=== PATIENT | male | born 1960 | race Caucasian/White ===

== ENCOUNTER → 2017-03-09 | Outpatient (CLI) | payer BC ==
[2017-03-09 14:54] LABS: BASOPHILS % (AUTO) 0.5 %; EOSINOPHILS # (AUTO) 0.1 10^3/uL (0.0-0.7); EOSINOPHILS % (AUTO) 1.8 %; HCT - HEMATOCRIT 46.4 % (42.0-52.0); HGB - HEMOGLOBIN 15.5 g/dL (14.0-18.0); LYMPHOCYTES # (AUTO) 1.6 10^3/uL (1.5-3.5); LYMPHOCYTES % (AUTO) 21.7 %; MEAN CORPUSCULAR HEMOGLOBIN 30.6 pg (27.0-31.0); MEAN CORPUSCULAR HGB CONC 33.4 g/dL (32.0-36.0); MEAN CORPUSCULAR VOLUME 91.8 fL (80.0-94.0); MEAN PLATELET VOLUME 9.6 fL (7.4-11.4); MONOCYTES # (AUTO) 0.8 10^3/uL (0.0-1.0); MONOCYTES % (AUTO) 10.3 %; NEUTROPHILS # (AUTO) 4.9 10^3/uL (1.5-6.6); NEUTROPHILS % (AUTO) 65.7 %; NUCLEATED RED BLOOD CELLS AUTO 0.1 /100WBC; RED BLOOD COUNT 5.05 10^6/uL (4.70-6.10); RED CELL DISTRIBUTION WIDTH 13.9 % (12.0-15.0); UNCORRECTED WHITE BLOOD COUNT 7.5 x10^3/uL; WHITE BLOOD COUNT 7.5 x10^3/uL (4.8-10.8)
[2017-03-09 15:04] LABS: ALBUMIN/GLOBULIN RATIO 1.2 (1.0-2.2); BILIRUBIN,TOTAL 0.6 mg/dL (0.2-1.0); BUN - BLOOD UREA NITROGEN 26 mg/dL (6-20); CALCIUM 9.1 mg/dL (8.5-10.3); CARBON DIOXIDE - CO2 30 mmol/L (21-32); CHLORIDE 96 mmol/L (101-111); CHOL/HDL RATIO 4.7 (<5.0); CHOLESTEROL 225 mg/dL; GFR - MDRD 77 (>89); GLUCOSE 97 mg/dL (70-100); HDL CHOLESTEROL 48 mg/dL; LDL/HDL RATIO 3.2 (<3.6); POTASSIUM 3.9 mmol/L (3.5-5.0); SODIUM 136 mmol/L (135-145); TOTAL PROTEIN 7.4 g/dL (6.7-8.2); TRIGLYCERIDES 110 mg/dL; VLDL CHOLESTEROL 22 mg/dL
[2017-03-09 15:15] LABS: PSA TOTAL 3.16 ng/mL (0.000-2.000)
[2017-03-12 13:42] LABS: PSA FREE 0.28 ng/mL (0.16-2.81)
== END ==
LOC: LAB.R 08:00
PROVIDERS: ATTEND Nurse Practitioner Primary Care
DX: N40.0 Benign prostatic hyperplasia without lower urinary tract symptoms (principal); E55.9 Vitamin D deficiency, unspecified; I10 Essential (primary) hypertension; R61 Generalized hyperhidrosis; Z13.6 Encounter for screening for cardiovascular disorders
CPT/HCPCS: 80053; 80061; 82306; 84153; 84154; 84443; 85025

== ENCOUNTER 2017-04-18 13:52 | Outpatient (CLI) | payer BC ==
[2017-04-18] MEDS ORDERED: ALBUTEROL NEB 2.5 MG/3 ML INH ONE (14:00)
== END 2017-04-18 13:53 | disposition home or self-care (01) ==
LOC: RT 13:52
PROVIDERS: ATTEND Nurse Practitioner Primary Care
DX: J45.909 Unspecified asthma, uncomplicated (principal)
CPT/HCPCS: 94060; 94664

== ENCOUNTER 2017-05-03 15:47 | Outpatient (CLI) | payer BC ==
--- NOTE | 2017-05-04 10:46 | XRAY Report ---
DATE OF SERVICE: 05/03/2017 TWO VIEW CHEST: 05/03/2017 CLINICAL INDICATION: Restrictive lung disease. FINDINGS: Frontal and lateral views of the chest demonstrate a normal cardiac silhouette. There is elevation of the right hemidiaphragm. Spinal stimulator is noted in the mid thoracic spine. No focal consolidation, effusion, or pneumothorax is present. IMPRESSION: ELEVATION OF THE RIGHT HEMIDIAPHRAGM. NO EVIDENCE OF ACUTE CARDIOPULMONARY DISEASE. TD: 05/04/2017 11:45
== END 2017-05-03 15:48 | disposition home or self-care (01) ==
LOC: DI 15:47
PROVIDERS: ATTEND Orthopaedic Surgery
DX: J98.4 Other disorders of lung (principal)
CPT/HCPCS: 71046

== ENCOUNTER 2017-05-03 15:51 | Outpatient (CLI) | payer BC ==
--- NOTE | 2017-05-04 10:52 | XRAY Report ---
DATE OF SERVICE: 05/03/2017 LUMBAR SPINE WITH FLEXION AND EXTENSION: 05/03/2017 CLINICAL INDICATION: Fusion. FINDINGS: AP, lateral neutral, lateral flexion, lateral extension, coned down views of the lumbar spine were obtained. No previous exam is available for comparison. There has been previous posterior sheri and pedicle screw fusion of L4-L5. There is anterolisthesis of L4 on L5 by 1 cm, which is stable across flexion and extension. There is no evidence of fracture or subluxation. Mild degenerative changes are seen at the other disk levels. IMPRESSION: POSTERIOR SHERI AND PEDICLE SCREW FUSION OF L4-L5, WITH 1 CM ANTEROLISTHESIS OF L4 ON L5, STABLE ACROSS FLEXION AND EXTENSION. TD: 05/04/2017 11:52
== END 2017-05-03 15:52 | disposition home or self-care (01) ==
LOC: DI 15:51
PROVIDERS: ATTEND Physical Medicine & Rehabilitation
DX: Z98.1 Arthrodesis status (principal); J98.4 Other disorders of lung; M43.16 Spondylolisthesis, lumbar region
CPT/HCPCS: 71046; 72110

== ENCOUNTER 2017-05-08 09:54 | Outpatient (CLI) | payer BC | END 2017-05-08 09:55 | disposition home or self-care (01) | LOC: SC 09:54 | PROVIDERS: ATTEND Internal Medicine Pulmonary Disease | DX: G47.10 Hypersomnia, unspecified (principal); G47.8 Other sleep disorders; R06.83 Snoring | CPT/HCPCS: 99203; 99212 ==

== ENCOUNTER 2017-06-19 21:37 | Outpatient (CLI) | payer BC | END 2017-06-19 21:38 | disposition home or self-care (01) | LOC: SC 21:37 | PROVIDERS: ATTEND Internal Medicine Pulmonary Disease | DX: G47.33 Obstructive sleep apnea (adult) (pediatric) (principal) | CPT/HCPCS: 95810 ==

== ENCOUNTER 2017-06-25 11:02 | Outpatient (CLI) | payer BC | END 2017-06-25 11:03 | disposition home or self-care (01) | LOC: LAB 11:02 | PROVIDERS: ATTEND Orthopaedic Surgery | DX: J98.4 Other disorders of lung (principal) | CPT/HCPCS: 36415; 85018 ==

== ENCOUNTER 2017-06-27 09:20 | Outpatient (CLI) | payer BC | END 2017-06-27 09:21 | disposition home or self-care (01) | LOC: RT 09:20 | PROVIDERS: ATTEND Allergy & Immunology | DX: J98.4 Other disorders of lung (principal) | CPT/HCPCS: 94010; 94729 ==

== ENCOUNTER 2017-07-03 08:32 | Outpatient (CLI) | payer BC | END 2017-07-03 08:33 | disposition home or self-care (01) | LOC: SC 08:32 | PROVIDERS: ATTEND Nurse Practitioner Family | DX: G47.33 Obstructive sleep apnea (adult) (pediatric) (principal) | CPT/HCPCS: 99212; 99214 ==

== ENCOUNTER 2017-07-04 10:53 | Outpatient (CLI) | payer BC ==
--- NOTE | 2017-07-04 14:44 | CT Report ---
HIGH-RES CHEST CT WITHOUT CONTRAST: 07/04/2017 COMPARISON: No comparison. INDICATION: Restrictive lung disease. TECHNIQUE: Noncontrast axial imaging of the chest was performed with coronal and sagittal reformats. Inspiration views and high resolution views were performed as well. FINDINGS: There is minimal right basilar bronchiectasis. There is elevation of the right diaphragm. No pulmonary nodules or masses. No other interstitial findings are noted. No hilar or mediastinal adenopathy. There is a 1.9 cm right renal cortical cyst. There is bilateral renal pelviectasis of uncertain etiology. Spinal stimulator is noted. No bone lesions. IMPRESSION: THERE IS MINIMAL RIGHT BASILAR BRONCHIECTASIS. NO OTHER INTERSTITIAL FINDINGS ARE DEMONSTRATED. THERE IS ELEVATION OF THE RIGHT DIAPHRAGM. THIS MAY BE POSTSURGICAL OR DUE TO PHRENIC NERVE PALSY. CORRELATE CLINICALLY. CT DOSE REDUCTION STATEMENT In accordance with CT protocol optimization, one or more of the following dose reduction techniques were utilized for this exam: automated exposure control, adjustment of mA and/or KV based on patient size, or use of iterative reconstructive technique. TD: 07/04/2017 14:43 MTDD
== END 2017-07-04 10:54 | disposition home or self-care (01) ==
LOC: DI 10:53
PROVIDERS: ATTEND Allergy & Immunology
DX: J47.9 Bronchiectasis, uncomplicated (principal); J98.6 Disorders of diaphragm
CPT/HCPCS: 71250

== ENCOUNTER 2017-10-15 09:44 | Outpatient (CLI) | payer BC | END 2017-10-15 09:45 | disposition home or self-care (01) | LOC: SC 09:44 | PROVIDERS: ATTEND Nurse Practitioner Family | DX: G47.33 Obstructive sleep apnea (adult) (pediatric) (principal) | CPT/HCPCS: 99212; 99214 ==

== ENCOUNTER 2017-11-12 11:14 | Outpatient (CLI) | payer BC | END 2017-11-12 11:15 | disposition home or self-care (01) | LOC: SC 11:14 | PROVIDERS: ATTEND Nurse Practitioner Family | DX: G47.33 Obstructive sleep apnea (adult) (pediatric) (principal) | CPT/HCPCS: 99212; 99214 ==

== ENCOUNTER 2018-01-07 10:35 | Outpatient (CLI) | payer BC | END 2018-01-07 10:36 | disposition home or self-care (01) | LOC: LAB.R 10:35 | PROVIDERS: ATTEND Internal Medicine | DX: M70.22 Olecranon bursitis, left elbow (principal) | CPT/HCPCS: 87070; 87181; 87205 ==

== ENCOUNTER 2018-01-17 13:39 | Outpatient (CLI) | payer BC ==
[2018-01-17 14:06] LABS: BASOPHILS # (AUTO) 0.1 10^3/uL (0.0-0.1); BASOPHILS % (AUTO) 0.6 %; EOSINOPHILS # (AUTO) 0.1 10^3/uL (0.0-0.7); EOSINOPHILS % (AUTO) 0.7 %; HGB - HEMOGLOBIN 14.9 g/dL (14.0-18.0); LYMPHOCYTES # (AUTO) 1.7 10^3/uL (1.5-3.5); LYMPHOCYTES % (AUTO) 16.5 %; MEAN CORPUSCULAR HEMOGLOBIN 31.2 pg (27.0-31.0); MEAN CORPUSCULAR HGB CONC 34.4 g/dL (32.0-36.0); MEAN CORPUSCULAR VOLUME 90.8 fL (80.0-94.0); MEAN PLATELET VOLUME 8.1 fL (7.4-11.4); MONOCYTES # (AUTO) 0.6 10^3/uL (0.0-1.0); MONOCYTES % (AUTO) 5.9 %; NEUTROPHILS # (AUTO) 7.9 10^3/uL (1.5-6.6); NEUTROPHILS % (AUTO) 76.3 %; PLT - PLATELET COUNT 281 10^3/uL (130-450); RED BLOOD COUNT 4.76 10^6/uL (4.70-6.10); RED CELL DISTRIBUTION WIDTH 13.3 % (12.0-15.0); WHITE BLOOD COUNT 10.4 x10^3/uL (4.8-10.8)
[2018-01-17 14:16] LABS: CALCIUM 9.1 mg/dL (8.5-10.3)
== END 2018-01-17 13:40 | disposition home or self-care (01) ==
LOC: LAB 13:39
PROVIDERS: ATTEND Orthopaedic Surgery Sports Medicine
DX: Z01.812 Encounter for preprocedural laboratory examination (principal); M70.22 Olecranon bursitis, left elbow
CPT/HCPCS: 36415; 80048; 85025; 93005

== ENCOUNTER 2018-01-18 06:13 | Day surgery (SDC) | payer BC ==
[2018-01-18] MEDS ORDERED: CLINDAMYCIN 600 MG/50 ML 50 ML IV ONE (06:29)
[2018-01-18] MEDS ORDERED: LACTATED RINGERS 1,000 ML IV ONE ×2 (06:31→08:45)
[2018-01-18] MEDS ORDERED: BUPIVACAINE 0.25% PF 30 ML VIAL ONE (06:53)
--- NOTE | 2018-01-18 07:17 | ANESTHESIA ---
Pre-Anesthesia VS, & Labs - Diagnosis L Olecrenon bursitis - Procedure I&D left olecranon Vital Signs: Temp Pulse Resp BP Pulse Ox 36.3 C L 59 L 18 153/109 H 92 01/18/18 06:42 01/18/18 06:42 01/18/18 06:42 01/18/18 06:42 01/18/18 06:42 Height 6 ft Weight (kg) 131.3 kg - NPO >8 hours - Lab Results Lab results reviewed: Yes Home Medications and Allergies Home Medications: Ambulatory Orders Medication Instructions Recorded Confirmed Acetaminophen/Diphenhydramine 2 each PO DAILY PM 01/11/18 01/11/18 [Tylenol Pm Ex-Strength Caplet] Albuterol Sulfate [Proair Hfa 1 - 2 puffs INH Q4H PRN 01/11/18 01/11/18 Inhaler] Amitriptyline HCl 25 - 50 mg PO DAILY PM 01/11/18 01/11/18 Ascorbic Acid [Vitamin C] 500 mg PO DAILY 01/11/18 01/11/18 Azelastine HCl [Astepro] 4 spray NS DAILY 01/11/18 01/11/18 Budesonide/Formoterol Fumarate 2 puffs IH BID 01/11/18 01/11/18 [Symbicort 160-4.5 Mcg Inhaler] Cholecalciferol [Vitamin D3] 5,000 unit PO DAILY 01/11/18 01/11/18 Codeine Phosphate/Guaifenesin 5 ml PO DAILY PM PRN 01/11/18 01/11/18 [Guaifen-Codeine 100-10 mg/5 ml] Diclofenac Sodium [Diclo Gel] 1 applic TP TID 01/11/18 01/11/18 Duloxetine HCl [Cymbalta] 60 mg PO DAILY 01/11/18 01/11/18 Lisinopril 20 mg PO BID 01/11/18 01/11/18 Loratadine [Claritin] 10 mg PO DAILY 01/11/18 01/11/18 Metaxalone 800 mg PO TID 01/11/18 01/11/18 Naproxen Sodium 220 mg PO BID 01/11/18 01/11/18 Oxycodone HCl 10 mg PO Q4HR PRN 01/11/18 01/11/18 Polyethylene Glycol 3350 [Miralax] 17 gm PO DAILY 01/11/18 01/11/18 Pregabalin [Lyrica] 150 mg PO BID 01/11/18 01/11/18 Tamsulosin [Flomax] 0.4 mg PO DAILY PM 01/11/18 01/11/18 Triamcinolone Acetonide [Nasacort] 2 spray NS DAILY 01/11/18 01/11/18 Vardenafil HCl [Levitra] 20 mg PO ONCE PRN 01/11/18 01/11/18 Zolpidem Tartrate [Ambien] 10 mg PO DAILY PM 01/11/18 01/11/18 clonazePAM [Clonazepam] 1 mg PO DAILY PM 01/11/18 01/11/18 Metaxalone 800 mg PO TID 01/17/18 01/17/18 Mometasone Furoate [Nasonex] 2 sprays NS BID 01/17/18 01/17/18 Acetaminophen/Diphenhydramine [Tylenol Pm Ex-Strength Caplet] 2 each PO DAILY PM 01/11/18 Albuterol Sulfate [Proair Hfa Inhaler] 1 - 2 puffs INH Q4H PRN 01/11/18 Amitriptyline HCl 25 - 50 mg PO DAILY PM 01/11/18 Ascorbic Acid [Vitamin C] 500 mg PO DAILY 01/11/18 Azelastine HCl [Astepro] 4 spray NS DAILY 01/11/18 Budesonide/Formoterol Fumarate [Symbicort 160-4.5 Mcg Inhaler] 2 puffs IH BID 01/11/18 Cholecalciferol [Vitamin D3] 5,000 unit PO DAILY 01/11/18 Codeine Phosphate/Guaifenesin [Guaifen-Codeine 100-10 mg/5 ml] 5 ml PO DAILY PM PRN 01/11/18 Diclofenac Sodium [Diclo Gel] 1 applic TP TID 01/11/18 Duloxetine HCl [Cymbalta] 60 mg PO DAILY 01/11/18 Lisinopril 20 mg PO BID 01/11/18 Loratadine [Claritin] 10 mg PO DAILY 01/11/18 Metaxalone 800 mg PO TID 01/11/18 Naproxen Sodium 220 mg PO BID 01/11/18 Oxycodone HCl 10 mg PO Q4HR PRN 01/11/18 Polyethylene Glycol 3350 [Miralax] 17 gm PO DAILY 01/11/18 Pregabalin [Lyrica] 150 mg PO BID 01/11/18 Tamsulosin [Flomax] 0.4 mg PO DAILY PM 01/11/18 Triamcinolone Acetonide [Nasacort] 2 spray NS DAILY 01/11/18 Vardenafil HCl [Levitra] 20 mg PO ONCE PRN 01/11/18 Zolpidem Tartrate [Ambien] 10 mg PO DAILY PM 01/11/18 clonazePAM [Clonazepam] 1 mg PO DAILY PM 01/11/18 Metaxalone 800 mg PO TID 01/17/18 Mometasone Furoate [Nasonex] 2 sprays NS BID 01/17/18 Allergies/Adverse Reactions: Allergies Allergy/AdvReac Type Severity Reaction Status Date / Time cefaclor [From [facility]] Allergy Unknown Verified 01/17/18 15:55 Anes History & Medical History - Anesthetic History Anesthesia Complications: reports: No previous complications Family history of Anesthesia Complications: Denies Family history of Malignant Hyperthermia: Denies - Medical History Cardiovascular: reports: Hypertension Pulmonary: reports: Asthma, Shortness of breath, Sleep apnea, CPAP use Gastrointestinal: reports: None Urinary: reports: None Musculoskeletal: reports: Chronic back pain Endocrine/Autoimmune: reports: None Skin: reports: None - Surgical History General: Other Orthopedic: Spine surgery, Other Exam General: Alert, Oriented x3, Cooperative, No acute distress Mouth Openin Fingerbreadth Neck Mobility: Normal Mallampati classification: II Thyromental Distance: greater than 6 cm Respiratory: Lungs clear Cardiovascular: Regular rate, Normal S1, Normal S2, No murmurs Mental/Cognitive Status: Alert/Oriented X3 Cognitive Status: Within normal limits Plan Anesthesia Type: General Regional Block: Per Surgeon's request for Post Op pain control Consent for Procedure(s) Verified and Reviewed: Yes Code Status: Attempt Resuscitation ASA classification: 2-Mild systemic disease Is this case an emergency?: No
[2018-01-18] MEDS ORDERED: ONDANSETRON 4 MG/2 ML VIAL IVP ONE (08:32)
[2018-01-18] MEDS ORDERED: DEXAMETHASONE 4 MG/ML VIAL IVP ONE (08:32)
[2018-01-18] MEDS ORDERED: PROPOFOL 200 MG/20 ML VIAL IVP ONE (08:32)
[2018-01-18] MEDS ORDERED: ePHEDrine 50 MG/ML VIAL IVP ONE (08:32)
[2018-01-18] MEDS ORDERED: KETOROLAC 30 MG/ML VIAL IVP ONE (08:32)
[2018-01-18] MEDS ORDERED: PHENYLEPHRINE 50 MG/5 ML VIAL IV ONE (08:32)
[2018-01-18] MEDS ORDERED: MIDAZOLAM 2 MG/2 ML VIAL IVP ONE (08:32)
[2018-01-18] MEDS ORDERED: fentaNYL 100 MCG/2 ML VIAL IVP ONE (08:32)
[2018-01-18] MEDS ORDERED: LIDOCAINE-MPF 2% 5 ML VIAL IM ONE (08:32)
[2018-01-18] MEDS ORDERED: BUPIVACAINE 0.25% PF 30 ML VIAL SUBQ ONE (09:02)
[2018-01-18] MEDS: fentaNYL 100 MCG/2 ML VIAL ONE ×2 (09:30→09:36)
[2018-01-18] MEDS ORDERED: ONDANSETRON 4 MG/2 ML VIAL IVP PRN (09:36)
[2018-01-18] MEDS ORDERED: oxyCODONE 5 MG TABLET PO PRN (09:36)
[2018-01-18] MEDS ORDERED: oxyCOD/ACETAMIN 5 MG/325 MG TABLET PO ONE (10:02)
[2018-01-18 10:40] VITALS: BP 113/75
--- NOTE | 2018-01-18 11:18 | OPERATIVE REPORT ---
DATE OF SERVICE: 01/18/2018 Physician: Markel Anderson MD CARRIAGE SETTER: None. ANESTHESIA PROVIDER: Galdino Boucher CNA. ANESTHESIA: General anesthesia LMA, as well as 20 mL of 0.25% plain Marcaine. FLUIDS: 1 liter LR. ANTIBIOTICS: 600 clindamycin IV. PREOPERATIVE DIAGNOSES 1. Left septic olecranon bursa. 2. Left upper extremity cellulitis. POSTOPERATIVE DIAGNOSES 1. Left septic olecranon bursa. 2. Left upper extremity cellulitis. PROCEDURE PERFORMED 1. Left olecranon bursectomy. 2. Left elbow debridement and irrigation. HISTORY OF PRESENT ILLNESS/INDICATIONS: Patient is a 57-year-old gentleman who has thus far failed noninvasive treatment for an infected left elbow bursa. He is indicated for operative treatment. Please see previous clinic visit for full risks, benefits, and alternatives reviewed. These are again highlighted in the preoperative care unit with the patient and the patient's . Their questions are answered, they verbalize their wish to proceed with operative treatment; informed consent was given. PROCEDURE: On 01/18/2018 patient was identified in the Preoperative Care Unit. He identifies his left elbow as the operative site; this is signed. Patient is brought to the operating room. Antibiotics are given. He is placed supine on the operating table. Head, neck and extremity is placed in anatomic comfortable and stable position to avoid peripheral nerve stretch and compression. The patient's left upper extremity has a well-padded tourniquet placed high on the left axilla, taking care to avoid axillary structures neurovascularly. Left elbow is then shaved. Left elbow and left upper extremity are prescrubbed with Hibiclens solution and then prepped and draped in the usual sterile fashion. Surgical pause identified the left elbow as the operative site. At this point, Esmarch bandage is used to exsanguinate the limb, tourniquet is inflated to 250, and a curvilinear incision is made over the olecranon bursal region, with an attempt to make the incision out to the more lateral aspect of the olecranon tip to avoid wound compression with elbow pressure and to avoid approach of the ulnar nerve. At this point, incision is made. Spreading dissection is carried out around the bursa. Straw-colored minimally purulent fluid is noted to be in the bursa, which is cultured, and the bursa is then dissected out carefully, taking care to avoid over penetration in the cubital tunnel and to avoid iatrogenic injury to adjacent neurovascular structures. Hemostasis is achieved using bipolar cautery, given the patient's spinal implant. After the bursa is removed, the remaining tissue is then sharply debrided to healthy tissue, and, once the healthy tissue plane is identified throughout, copious irrigation using pulsatile lavage, a total of 3 liters, is used. This is intermittent with debridement as well. A curette is used to freshen all of the soft tissue edges, as well as over the periosteal region, and once all corners of the wound were explored and noted to be free of poor quality or infected or affected tissue, then repeat copious irrigation is performed. Hemostasis is achieved after the tourniquet is deflated, and then the wound is closed using interrupted PDS suture, 3-0 at the corners of the incision and then 3-0 nylon interrupted suture. Skin comes together nicely. Skin is washed, dried, local anesthetic is infused superficially. Xeroform dressing is applied to the wound, dry sterile dressing, soft roll, and then a soft splint at 90 degrees is applied from the hand to the arm. The patient is placed in a sling. The patient tolerated the procedure well. Instrument and sponge counts are correct. The patient is transferred to the recovery room in stable condition. The patient will continue his clindamycin antibiotics orally. He is already on pain medications generally and will use oxycodone. He would limit his activity of left upper extremity to less than 1 pound lifting. He would be encouraged to move hand and wrist. He would keep the elbow at 90 degrees, use the sling, and elevate it on a pillow when at rest. He would come in next week for a recheck, though sooner should problems, questions, or worsening condition should then arise. The patient's is contacted in the waiting room, and case is discussed with her. Postoperative instructions reviewed again with her, as they had been with the patient and the patient's preoperatively. She verbalizes her understanding and satisfaction of our plan and will notify us prior to followup should problems, questions, or worsening of condition arise. TD: 01/18/2018 10:07 PABLO
== END 2018-01-18 06:14 | disposition home or self-care (01) ==
LOC: SDS 06:13
PROVIDERS: ATTEND Orthopaedic Surgery Sports Medicine
PROC: 0MT40ZZ Resection of Left Elbow Bursa and Ligament, Open Approach (ICD-10-PCS; principal; 2018-01-18 07:30)
DX: M70.22 Olecranon bursitis, left elbow (principal); L03.114 Cellulitis of left upper limb; I10 Essential (primary) hypertension; G47.30 Sleep apnea, unspecified; J45.909 Unspecified asthma, uncomplicated; M54.9 Dorsalgia, unspecified; G89.29 Other chronic pain; Z96.89 Presence of other specified functional implants; Z79.899 Other long term (current) drug therapy; Z79.51 Long term (current) use of inhaled steroids
CPT/HCPCS: 24105; 87070; 87205; A9270; J7120

== ENCOUNTER 2018-02-11 11:13 | Outpatient (CLI) | payer BC | END 2018-02-11 11:14 | disposition home or self-care (01) | LOC: SC 11:13 | PROVIDERS: ATTEND Nurse Practitioner Family | DX: G47.33 Obstructive sleep apnea (adult) (pediatric) (principal); R09.02 Hypoxemia | CPT/HCPCS: 99212; 99214 ==

== ENCOUNTER 2018-03-05 09:25 | Outpatient (CLI) | payer BC ==
[2018-03-05 13:50] LABS: BASOPHILS % (AUTO) 0.4 %; EOSINOPHILS # (AUTO) 0.1 10^3/uL (0.0-0.7); EOSINOPHILS % (AUTO) 1.3 %; HGB - HEMOGLOBIN 14.7 g/dL (14.0-18.0); LYMPHOCYTES # (AUTO) 1.7 10^3/uL (1.5-3.5); LYMPHOCYTES % (AUTO) 25.2 %; MEAN CORPUSCULAR HEMOGLOBIN 30.8 pg (27.0-31.0); MEAN CORPUSCULAR HGB CONC 33.8 g/dL (32.0-36.0); MEAN CORPUSCULAR VOLUME 91.1 fL (80.0-94.0); MEAN PLATELET VOLUME 8.8 fL (7.4-11.4); MONOCYTES # (AUTO) 0.7 10^3/uL (0.0-1.0); MONOCYTES % (AUTO) 9.7 %; NEUTROPHILS # (AUTO) 4.3 10^3/uL (1.5-6.6); NEUTROPHILS % (AUTO) 63.4 %; PLT - PLATELET COUNT 200 10^3/uL (130-450); RED BLOOD COUNT 4.77 10^6/uL (4.70-6.10); RED CELL DISTRIBUTION WIDTH 14.3 % (12.0-15.0); WHITE BLOOD COUNT 6.8 x10^3/uL (4.8-10.8)
[2018-03-05 14:05] LABS: ALBUMIN/GLOBULIN RATIO 1.4 (1.0-2.2); ALKALINE PHOSPHATASE 68 IU/L (42-121); ALT ALANINE AMINOTRANSFERASE 23 IU/L (10-60); AST ASPARTATE AMINOTRANSFERASE 23 IU/L (10-42); BILIRUBIN,TOTAL 0.9 mg/dL (0.2-1.0); BUN - BLOOD UREA NITROGEN 24 mg/dL (6-20); CALCIUM 8.6 mg/dL (8.5-10.3); CARBON DIOXIDE - CO2 32 mmol/L (21-32); CHLORIDE 99 mmol/L (101-111); CHOL/HDL RATIO 4.8 (<5.0); CHOLESTEROL 228 mg/dL; CREATININE 0.9 mg/dL (0.6-1.2); GFR - MDRD 86 (>89); GLUCOSE 98 mg/dL (70-100); HB2 TOTAL 16.3 g/dL; HDL CHOLESTEROL 48 mg/dL; HEMOGLOBIN A1C 0.66 g/dL; HEMOGLOBIN A1C % 5.9 % (4.6-6.2); LDL CHOLESTEROL,CALCULATED 137 mg/dL; LDL/HDL RATIO 2.9 (<3.6); SODIUM 137 mmol/L (135-145); TOTAL PROTEIN 6.9 g/dL (6.7-8.2); VLDL CHOLESTEROL 43 mg/dL
== END 2018-03-05 09:26 | disposition home or self-care (01) ==
LOC: LAB.R 09:25
PROVIDERS: ATTEND Nurse Practitioner Primary Care
DX: Z00.00 Encounter for general adult medical examination without abnormal findings (principal); E55.9 Vitamin D deficiency, unspecified; Z13.1 Encounter for screening for diabetes mellitus; I10 Essential (primary) hypertension; Z79.899 Other long term (current) drug therapy; J45.998 Other asthma; R53.83 Other fatigue; E78.5 Hyperlipidemia, unspecified
CPT/HCPCS: 80053; 80061; 82306; 83036; 83721; 84443; 85025

== ENCOUNTER 2018-03-11 08:00 | Outpatient (CLI) | payer BC | END 2018-03-11 08:01 | LOC: LAB 08:00 | PROVIDERS: ATTEND Nurse Practitioner Primary Care | DX: Z12.5 Encounter for screening for malignant neoplasm of prostate (principal) | CPT/HCPCS: 84153 ==

== ENCOUNTER 2018-08-15 20:27 | Emergency (ER) | payer BC ==
--- NOTE | 2018-08-15 21:14 | XRAY Report ---
Reason: TWISTED R ANKLE/FOOT/ SWELLING/PAIN R FOOT. Procedure Date: 08/15/2018 Accession Number: [id number] / [id number] Procedure: XR - Ankle 3 View RT CPT Code: FULL RESULT: EXAM: RIGHT ANKLE RADIOGRAPHY EXAM DATE: 08/15/2018 08:58 PM. CLINICAL HISTORY: TWISTED R ANKLE/FOOT/ SWELLING/PAIN R FOOT. COMPARISON: None. TECHNIQUE: 3 views. FINDINGS: Bones: Small plantar and posterior calcaneal spurs. No definite fracture or other bone lesion. Joints: Symmetrical mortise. Trace joint effusion. Soft Tissues: Prominent soft tissue swelling over the malleoli. IMPRESSION: Soft tissue swelling with trace effusion. RADIA
[2018-08-15] MEDS ORDERED: MELOXICAM 7.5 MG TABLET PO STA (21:17)
--- NOTE | 2018-08-15 21:17 | ED Physician Documentation ---
PD HPI LOWER EXT INJURY - Stated complaint Stated Complaint: RT ANKLE INJURY - Chief complaint Chief Complaint: Ext Problem - History obtained from History obtained from: Patient, Family - History of Present Illness PD HPI LOW EXT INJURY LOCATION: Right, Lower leg, Ankle Type of injury: Fall Where injury occurred: Home Timing - onset: How many hours ago (2) Timing - details: Abrupt onset Pain level max: 9 Pain level now: 6 Improved by: Rest, Ice, Immobilization Worsened by: Moving, Palpating Associated symptoms: Swelling. No: Weakness, Numbness, Tingling Contributing factors: No: Anticoagulated, Prior ortho surgery Recently seen: Not recently seen Review of Systems Constitutional: denies: Fever Throat: denies: Sore throat GI: denies: Vomiting Musculoskeletal: denies: Neck pain, Back pain Neurologic: denies: Focal weakness, Numbness, Headache, Head injury, LOC PD PAST MEDICAL HISTORY - Past Medical History Past Medical History: Yes Cardiovascular: Hypertension Musculoskeletal: Chronic back pain - Past Surgical History Past Surgical History: Yes General: Hiatal hernia repair Ortho: Other - Present Medications Home Medications: Ambulatory Orders Medication Instructions Recorded Confirmed Acetaminophen/Diphenhydramine 2 each PO DAILY PM 01/11/18 01/11/18 [Tylenol Pm Ex-Strength Caplet] Albuterol Sulfate [Proair Hfa 1 - 2 puffs INH Q4H PRN 01/11/18 01/11/18 Inhaler] Amitriptyline HCl 25 - 50 mg PO DAILY PM 01/11/18 01/11/18 Ascorbic Acid [Vitamin C] 500 mg PO DAILY 01/11/18 01/11/18 Azelastine HCl [Astepro] 4 spray NS DAILY 01/11/18 01/11/18 Budesonide/Formoterol Fumarate 2 puffs IH BID 01/11/18 01/11/18 [Symbicort 160-4.5 Mcg Inhaler] Cholecalciferol [Vitamin D3] 5,000 unit PO DAILY 01/11/18 01/11/18 Codeine Phosphate/Guaifenesin 5 ml PO DAILY PM PRN 01/11/18 01/11/18 [Guaifen-Codeine 100-10 mg/5 ml] Diclofenac Sodium [Diclo Gel] 1 applic TP TID 01/11/18 01/11/18 Duloxetine HCl [Cymbalta] 60 mg PO DAILY 01/11/18 01/11/18 Lisinopril 20 mg PO BID 01/11/18 01/11/18 Loratadine [Claritin] 10 mg PO DAILY 01/11/18 01/11/18 Metaxalone 800 mg PO TID 01/11/18 01/11/18 Naproxen Sodium 220 mg PO BID 01/11/18 01/11/18 Oxycodone HCl 10 mg PO Q4HR PRN 01/11/18 01/11/18 Polyethylene Glycol 3350 [Miralax] 17 gm PO DAILY 01/11/18 01/11/18 Pregabalin [Lyrica] 150 mg PO BID 01/11/18 01/11/18 Tamsulosin [Flomax] 0.4 mg PO DAILY PM 01/11/18 01/11/18 Triamcinolone Acetonide [Nasacort] 2 spray NS DAILY 01/11/18 01/11/18 Vardenafil HCl [Levitra] 20 mg PO ONCE PRN 01/11/18 01/11/18 Zolpidem Tartrate [Ambien] 10 mg PO DAILY PM 01/11/18 01/11/18 clonazePAM [Clonazepam] 1 mg PO DAILY PM 01/11/18 01/11/18 Metaxalone 800 mg PO TID 01/17/18 01/17/18 Mometasone Furoate [Nasonex] 2 sprays NS BID 01/17/18 01/17/18 Budesonide/Formoterol Fumarate 10.2 gm IH DAILY 01/18/18 01/18/18 [Symbicort 80-4.5 Mcg Inhaler] Lisinopril/Hydrochlorothiazide 1 each PO BID 01/18/18 01/18/18 [Lisinopril-Hctz 20-12.5 mg Tab] Montelukast [Singulair] 10 mg PO QPM 01/18/18 01/18/18 Meloxicam [Mobic] 15 mg PO DAILY PRN #20 tablet 08/15/18 - Allergies Allergies/Adverse Reactions: Allergies Allergy/AdvReac Type Severity Reaction Status Date / Time cefaclor [From [facility]] Allergy Unknown Verified 08/15/18 20:41 - Social History Does the pt smoke?: No Smoking Status: Never smoker Does the pt drink ETOH?: Yes Does the pt have substance abuse?: No PD ED PE NORMAL - Vitals Vital signs reviewed: Yes - General General: Alert and oriented X 3, No acute distress - HEENT HEENT: Moist mucous membranes - Neck Neck: Supple, no meningeal sign - Derm Derm: Warm and dry - Extremities Extremities: Other (Right lower extremity - Swelling and tenderness over the Bilateral malleoli. Neurovascularly intact. No tenderness over the foot. No tenderness over the fifth metatarsal. Also has a contusion and tenderness to the proximal tibia.) - Neuro Neuro: Alert and oriented X 3 Results - Vitals Vitals: Vital Signs - 24 hr 08/15/18 08/15/18 20:39 22:08 Temperature 36.6 C Heart Rate 92 91 Respiratory 17 20 Rate Blood Pressure 145/104 H 163/103 H O2 Saturation 93 94 Oxygen O2 Source Room air - Rads (name of study) Right ankle x-ray Radiology: Prelim report reviewed, EMP read contemporaneously, See rad report (Soft tissue swelling with trace effusion. ) Right tib-fib x-ray Radiology: Prelim report reviewed, EMP read contemporaneously, See rad report (No acute bony abnormality) PD MEDICAL DECISION MAKING - ED course Complexity details: reviewed results, re-evaluated patient, considered differential, d/w patient, d/w family ED course: Patient with a right ankle sprain and a right tibial contusion. Given crutches and placed in an air splint for comfort. Given meloxicam for pain. Is on oxycodone already at home for his back. Patient and family counseled regarding signs and symptoms for which I believe and urgent re-evaluation would be necessary. Patient with good understanding of and agreement to plan and is comfortable going home at this time This document was made in part using voice recognition software. While efforts are made to proofread this document, sound alike and grammatical errors may occur. Departure - Departure Disposition: 01 Home, Self Care Clinical Impression: Right ankle sprain Qualifiers: Encounter type: initial encounter Involved ligament of ankle: unspecified ligament Qualified Code(s): S93.401A - Sprain of unspecified ligament of right ankle, initial encounter Contusion of right leg Qualifiers: Encounter type: initial encounter Qualified Code(s): S80.11XA - Contusion of right lower leg, initial encounter Condition: Good Instructions: ED Contusion Lower Ext, ED Sprain Ankle Follow-Up: Bro Hernandez MD [Primary Care Provider] - Within 1 week Prescriptions: Meloxicam [Mobic] 15 mg PO DAILY PRN #20 tablet PRN Reason: pain Comments: You may bear weight as tolerated. Return if you worsen. He will likely need the crutches for the next several days. You will likely need the Aircast for a week or 2. Your x-rays do not show any fractures today Discharge Date/Time: 08/15/18 22:09
[2018-08-15] MEDS ORDERED: oxyCODONE 5 MG TABLET PO STA (21:51)
--- NOTE | 2018-08-15 22:04 | XRAY Report ---
Reason: fall, R tib fib pain Procedure Date: 08/15/2018 Accession Number: [id number] / [id number] Procedure: XR - Tib/Fib RT CPT Code: FULL RESULT: EXAM: RIGHT TIBIA/FIBULA RADIOGRAPHY. EXAM DATE: 08/15/2018 09:37 PM. CLINICAL HISTORY: Fall, right tib-fib pain. COMPARISON: None. TECHNIQUE: 2 views. FINDINGS: Bones: Normal. No fracture or bone lesion. Joints: The visualized knee and ankle joints are normal. No effusions. Soft Tissues: Normal. No soft tissue swelling. IMPRESSION: Normal tibia/fibula radiography. RADIA
[2018-08-15 22:11] VITALS: BP 163/103
== END 2018-08-15 22:09 | disposition home or self-care (01) ==
LOC: ED 20:27
DX: S93.401A Sprain of unspecified ligament of right ankle, initial encounter (principal); S90.01XA Contusion of right ankle, initial encounter; W01.0XXA Fall on same level from slipping, tripping and stumbling without subsequent striking against object, initial encounter; X50.1XXA Overexertion from prolonged static or awkward postures, initial encounter; Y92.009 Unspecified place in unspecified non-institutional (private) residence as the place of occurrence of the external cause; I10 Essential (primary) hypertension
CPT/HCPCS: 73590; 73610; 99283; A9270

== ENCOUNTER 2018-10-14 14:06 | Outpatient (CLI) | payer BC | END 2018-10-14 14:07 | disposition home or self-care (01) | LOC: SC 14:06 | PROVIDERS: ATTEND Internal Medicine Pulmonary Disease | DX: G47.33 Obstructive sleep apnea (adult) (pediatric) (principal) | CPT/HCPCS: 99212; 99213 ==

== ENCOUNTER 2018-11-16 09:50 | Outpatient (CLI) | payer BC ==
--- NOTE | 2018-11-17 18:32 | XRAY Report ---
Reason: LEFT HEEL PAIN Procedure Date: 11/16/2018 Accession Number: [id number] / [id number] Procedure: XR - Calcaneus LT CPT Code: FULL RESULT: EXAM: LEFT CALCANEUS RADIOGRAPHY EXAM DATE: 11/16/2018 10:18 AM. CLINICAL HISTORY: LEFT HEEL PAIN. COMPARISON: ANKLE 3 VIEW RT 08/15/2018 8:43 PM. TECHNIQUE: 2 views. FINDINGS: Bones: Normal. No fractures or bone lesions. Joints: Normal. No effusion. No subluxations. The ankle mortise is normally aligned. Soft Tissues: No foreign body or gross soft tissue swelling. IMPRESSION: No osseous abnormality seen in the calcaneus. RADIA
== END 2018-11-16 09:51 | disposition home or self-care (01) ==
LOC: DI 09:50
PROVIDERS: ATTEND Physician Assistant
DX: M79.672 Pain in left foot (principal); S93.401D Sprain of unspecified ligament of right ankle, subsequent encounter; M19.071 Primary osteoarthritis, right ankle and foot

== ENCOUNTER 2018-11-16 09:50 | Outpatient (CLI) | payer BC ==
--- NOTE | 2018-11-17 16:46 | CT Report ---
Reason: SPRAIN OF UNSPECIFIED LIGAMENT OF RIGHT ANKLE, SUB Procedure Date: 11/16/2018 Accession Number: [id number] / [id number] Procedure: CT - LOWER EXTREMITY WO - RT CPT Code: FULL RESULT: EXAM: RIGHT ANKLE CT WITHOUT CONTRAST EXAM DATE: 11/16/2018 10:25 AM. CLINICAL HISTORY: SPRAIN OF UNSPECIFIED LIGAMENT OF RIGHT ANKLE, SUB. COMPARISON: None. TECHNIQUE: Thin-section axial images were acquired of the ankle without contrast. Post-processing: Coronal and sagittal reformats. Other: None. In accordance with CT protocol optimization, one or more of the following dose reduction techniques were utilized for this exam: automated exposure control, adjustment of mA and/or KV based on patient size, or use of iterative reconstructive technique. FINDINGS: Bones: Tiny ossicle along the anterior margin of the lateral malleolus consistent with an avulsion fragment which may be acute or chronic. Avulsion in this location would typically be due to injury to the anterior talofibular ligament. Minuscule osteophytes at the margins of the tibial plafond anteriorly and posteriorly consistent with minimal tibiotalar osteoarthritis. No significant further degenerative changes elsewhere. Soft tissues: Evaluation of the ligaments of the ankle is very limited on CT. Moderate soft tissue thickening along the superficial margin of and distal to the medial malleolus suspicious for sequela of deltoid ligament sprain. The soft tissues in the region of the anterior talofibular and calcaneofibular ligaments are also thickened and edematous suggesting anterior talofibular and calcaneofibular ligament sprain. Limited evaluation of the tibialis posterior, flexor digitorum longus, flexor hallucis longus, peroneus longus, tibialis anterior, extensor hallucis longus, and extensor digitorum longus tendons is grossly normal. The peroneus brevis tendon is flattened in contour along the posterior margin of the lateral malleolus and there is a questionable longitudinal split of the peroneus brevis tendon immediately distal to the lateral malleolus suspicious for longitudinal split tear. The peroneus brevis further distally is normal. IMPRESSION: 1. Questionable sprains of the deltoid, anterior talofibular, and calcaneofibular ligaments. CT is limited in evaluation for ligament sprains in the ankle. 2. Questionable longitudinal split tear of the peroneus brevis tendon along the posterior margin of and immediately distal to the lateral malleolus. CT is also limited for assessment of ankle tendons. 3. Tiny ossicle adjacent to the anterior margin of the lateral malleolus probably reflecting avulsion of the anterior talofibular ligament. This could be acute or chronic. No further potential fracture elsewhere. 4. Minimal tibiotalar osteoarthritis. RADIA
== END 2018-11-16 09:51 | disposition home or self-care (01) ==
LOC: DI 09:50
PROVIDERS: ATTEND Orthopaedic Surgery Sports Medicine
DX: S93.401D Sprain of unspecified ligament of right ankle, subsequent encounter (principal); M19.071 Primary osteoarthritis, right ankle and foot

== ENCOUNTER 2019-01-10 20:53 | Outpatient (CLI) | payer BC | END 2019-01-10 20:54 | disposition home or self-care (01) | LOC: SC 20:53 | PROVIDERS: ATTEND Internal Medicine Pulmonary Disease | DX: G47.33 Obstructive sleep apnea (adult) (pediatric) (principal); R09.02 Hypoxemia | CPT/HCPCS: 95811 ==

== ENCOUNTER 2019-01-27 11:17 | Outpatient (CLI) | payer BC ==
--- NOTE | 2019-01-28 15:38 | CT Report ---
Reason: SINUSITIS, SLEEP APNEA Procedure Date: 01/27/2019 Accession Number: [id number] / [id number] Procedure: CT - Sinuses CPT Code: FULL RESULT: EXAM: CT SINUS EXAM DATE: 01/27/2019 11:31 AM. HISTORY: 58-year-old man with sinusitis and sleep apnea. COMPARISONS: None. TECHNIQUE: Routine multi-axial CT imaging performed through the sinuses. Iodinated IV contrast: None. Reconstructions: Multiplanar reformats. In accordance with CT protocol optimization, one or more of the following dose reduction techniques were utilized for this exam: automated exposure control, adjustment of mA and/or KV based on patient size, or use of iterative reconstructive technique. FINDINGS: RIGHT Frontal: Clear. Ethmoid: Clear. Maxillary: Clear except for minimal mucosal thickening along the floor. Sphenoid: Clear. Drainage Pathways: The frontal recess, ostiomeatal complex and sphenoethmoidal recess are patent and normal. LEFT Frontal: Clear except for minimal mucosal thickening along the antrum and frontal recess. Ethmoid: Mild mucosal thickening with opacification of one air cell. Maxillary: Mild mucosal thickening is present along the floor and there is a mucus retention cyst along the roof. Sphenoid: Clear. Drainage Pathways: The frontal recess, ostiomeatal complex and sphenoethmoidal recess are patent and normal except for minimal mucosal thickening along the frontal recess. Nasal Cavity: Normal. No mass or significant anatomic abnormality evident. The anterior septum is deviated to the left. Osseous Structures: Unremarkable. No fracture or hyperostosis. Orbits: Unremarkable. Other: None. IMPRESSION: 1. Minimal scattered mucosal thickening in the paranasal sinuses. RADIA
== END 2019-01-27 11:18 | disposition home or self-care (01) ==
LOC: DI 11:17
PROVIDERS: ATTEND Otolaryngology
DX: J32.8 Other chronic sinusitis (principal); G47.33 Obstructive sleep apnea (adult) (pediatric)
CPT/HCPCS: 70486

== ENCOUNTER 2019-02-03 11:08 | Outpatient (CLI) | payer BC ==
[2019-02-03 12:30] VITALS: BP 124/76
--- NOTE | 2019-02-03 12:30 | SLEEP CARE CONSULTATION ---
Information from patient questionnaire entered by Lashawn Romero. I have reviewed and concur with the information entered by Lashawn Romero. This document represents the service I personally performed and the decisions made by me, Jacey Meraz, RN, MSN, REMEDIAL TEACHER. History of Present Illness Previous diagnosis: Severe, Obstructive Sleep Apnea-Hypopnea Syndrome AHI: 38.9 Reason for CPAP/BiPAP follow up: with manual titration Equipment type: CPAP Equipment obtained from: [employer] (pleased with customer service since transfer.) Mask style: Nasal Mask brand: Resmed ([id number] [id number]) Backup mask available: Yes Last cushion change: 2 weeks ago Sleep Study - Polysomnography Polysomnography findings: The quality of the study is good. CPAP was initiated at 6 cmH2O and titrated up to CPAP at 12 cmH2O. CPAP at 10 cmH2O appeared to be optimal (AHI of 4.3 per hour on the pressure). There was supine sleep on the pressure. Oxygen saturation was mildly low due to low baseline oxygen saturation of 89%. Lower CPAP settings allowed slightly more frequent residual respiratory events. The patient appeared to have tolerated positive airway pressure therapy well. The patients sleep efficiency was slightly reduced due to two prolonged awakenings during the night. The sleep architecture was abnormal for lack of REM sleep. There was no significant periodic limb movement of sleep. Cardiac rhythm was normal sinus rhythm without significant arrhythmia. No abnormal behavior (parasomnia) observed during the night. CPAP Compliance Data - Data Reviewed with Patient Average duration of nightly device use: 8.4 Compliance rate %: 96.7 (30 days) Current pressure setting (cmH2O): 8 Humidity settin Heated hose settin Average residual AHI: 2.6 Average large leak: 29 secs Subjective Missed days of use due to: reports: other (sleep study) Patient concerns: reports: nasal congestion (chronic - uses saline nasal spray nightly prior to CPAP and medications prescribed. ), dry mouth, nose, throat (dry nose a few nights a week). denies: aerophagia, mask discomfort, air blowing in eyes, mask leak noise, condensation in mask/hose, epistaxis Observed to snore while using device: No Current pressure setting perceived as: comfortable On therapy, patient: reports: sleeping better, being more awake and alert during the day, more rested overall. denies: awakening more refreshed, drowsiness while driving Initial [place] Sleepiness Scale score: 10 Current [place] Sleepiness Scale score: 3 Allergies and Home Medications Known drug allergies: No Home medication list reviewed: Yes Allergy and home medication list: Losartan Potassium 50mg tab one daily Metalaxone 800mg tab one three times daily Lyrica 150mg cap one twice daily Oxycodone HCI 10mg tab 1-2 q6hr as needed Duloxetine HCI 60mg cap one daily Symbicort 160-4.5 mcg/act Two puffs twice daily Montelukast Sodium 10mg tab one daily Clonazepam Mg tab one daily at bedtime Tamsulosin HCI 0.4mg cap one daily Zolpidem Tartrate 10mg tab one daily at bedtime as needed Guaifenesin 100 mg/5ml Oral Liquid 10ml q4hrs as needed Naftifine HCI 2% External Cream One application to affected area daily Diclofenac Sodium 1% Transdermal Gel 4 grams to affected area four times daily Ipratropium [place] 0.06% Nasal Solution One spray up to four times daily ProAir HFA 108 (90 base) mcg/act Solution 1-2 puffs four times daily as needed Review of Systems Review of systems same as previous: No Physical Exam Blood Pressure: 124/76 Cuff size: long Heart Rate: 90 O2 Saturation: 95 Height: 6 ft Weight: 298 lb 12.8 oz Body Mass Index: 40.5 BMI Classification: Obesity Class 3 Impression and Plan 1. 1. Obstructive Sleep Apnea-Hypopnea Syndrome, [], with [fair] treatment compliance and [] apnea control. On CPAP therapy, the patient has better sleep quality and is more rested overall. Patient's apnea severity and rationale for treatment to reduce apnea, improve sleep quality and reduce cardiovascular and cerebrovascular events was reviewed. I also reviewed the benefit of consistent device use of [CPAP] for [hypertension, ][cardiac disease, ][cerebrovascular disease, ][arrhythmia, ][diabetes, ] [gastric reflux, ][depression/anxiety, ][migraines].Obstructive Sleep Apnea-Hypopnea Syndrome, [], with [fair] treatment compliance and [] apnea control. On CPAP therapy, the patient has better sleep quality and is more rested overall. Patient's apnea severity and rationale for treatment to reduce apnea, improve sleep quality and reduce cardiovascular and cerebrovascular events was reviewed. I also reviewed the benefit of consistent device use of [CPAP] for [hyper tension, ][cardiac disease, ][cerebrovascular disease, ][arrhythmia, ][diabetes, ] [gastric reflux, ][depression/anxiety, ][migraines]. Adjust device pressure to: [id number] Prescriptions: Other (oxygen 1 liter per CPAP) Patient to follow up with: PCP for further evaluation of hypoxia Follow up recommeded due to: check pressure change and oxygen results. I spent 100% of this 40 minute visit face to face with the patient with greater than 50% of this was spent time counseling the patient and coordination of care.
--- NOTE | 2019-02-06 18:22 | SLEEP CARE CONSULTATION ---
Information from patient questionnaire entered by Patricia Johnson. I have reviewed and concur with the information entered by Patricia Johnson. This document represents the service I personally performed and the decisions made by me, Jacey Meraz, RN, MSN, BARREL DRUM CUTTER. History of Present Illness Previous diagnosis: Severe, Obstructive Sleep Apnea-Hypopnea Syndrome AHI: 38.9 Reason for CPAP/BiPAP follow up: with manual titration Equipment type: CPAP Equipment obtained from: [employer] (pleased with customer service) Mask style: Nasal Mask brand: Resmed Prior sleep studies: Yes Year and Where: 2017 [facility] CPAP Compliance Data - Data Reviewed with Patient Average duration of nightly device use: 8.4 Compliance rate %: 96.7 (30 days) Current pressure setting (cmH2O): 8 Humidity settin Heated hose settin Average residual AHI: 2.6 Central apnea: 29 seconds Subjective Missed days of use due to: reports: other (sleep study) Patient concerns: reports: nasal congestion (chronic- uses saline nasal spray nightly prior to CPAP and prescribed meds), dry mouth, nose, throat (dry nose a few times a week). denies: aerophagia, mask discomfort, air blowing in eyes, mask leak noise, condensation in mask/hose Observed to snore while using device: No Current pressure setting perceived as: comfortable On therapy, patient: reports: sleeping better, being more awake and alert during the day, more rested overall. denies: awakening more refreshed, drowsiness while driving Initial [place] Sleepiness Scale score: 10 Current [place] Sleepiness Scale score: 3 Allergies and Home Medications Known drug allergies: No Home medication list reviewed: Yes Allergy and home medication list: Losartan Potassium 50mg tab one daily Metalaxone 800mg tab one three times daily Lyrica 150mg cap one twice daily Oxycodone HCI 10mg tab 1-2 q6hr as needed Duloxetine HCI 60mg cap one daily Symbicort 160-4.5 mcg/act Two puffs twice daily Montelukast Sodium 10mg tab one daily Clonazepam Mg tab one daily at bedtime Tamsulosin HCI 0.4mg cap one daily Zolpidem Tartrate 10mg tab one daily at bedtime as needed Guaifenesin 100 mg/5ml Oral Liquid 10ml q4hrs as needed Naftifine HCI 2% External Cream One application to affected area daily Diclofenac Sodium 1% Transdermal Gel 4 grams to affected area four times daily Ipratropium [place] 0.06% Nasal Solution One spray up to four times daily ProAir HFA 108 (90 base) mcg/act Solution 1-2 puffs four times daily as needed Review of Systems Review of systems same as previous: No (severe sprain right ankle - casted then braced - PT) Physical Exam Blood Pressure: 124/76 Cuff size: long Heart Rate: 90 O2 Saturation: 95 Height: 6 ft Weight: 299 lb 12.8 oz Body Mass Index: 40.6 BMI Classification: Obesity Class 3 Impression and Plan 1. Obstructive Sleep Apnea-Hypopnea Syndrome, severe, with good treatment compliance and good apnea control. On CPAP therapy, the patient has better sleep quality and is more rested overall. However, he has unrefreshed sleep and fatigue in the morning. The recent manual titration study recommends a higher CPAP pressure at [id number] and hypoxia as addressed below. Thus his CPAP pressure will be increased from cmH20 to [id number]. Patient advised to contact this office if the pressure change in uncomfortable. For his nasal dryness, he is advised to decrease his heated hose and only increase if condensation. Patients BMI is now 40, morbid obesity. Morbid obesity increases apnea risk and overall health risks such as cardiac disease and diabetes. He has tried to lose weight in past and has had difficulty. I discussed the benefit of a diet consultation and he would like to pursue. Thus he is advised to discuss with his PCP for a referral. Patient's apnea severity and rationale for treatment to reduce apnea, improve sleep quality and reduce cardiovascular and cerebrovascular events was reviewed. I also reviewed the benefit of consistent device use of CPAP for hypertension. It is hoped the measures ordered today will improve patient's sleep. 2. Hypoxemia, mild, due to low baseline oxygen saturation. A manual titration study was completed to evaluate hypoxia due to moderate hypoxia on polysomnography. Initially an overnight pulse oximetry was ordered on his CPAP when apnea corrected as patient did not want to repeat a sleep study. It was completed per patient by [facility] but no results were ever obtained. When this was discovered an attempt to repeat overnight pulse oximetry was ordered and declined by [facility], his new DME and thus titration study ordered for further evaluation. Thus with titration findings current findings, oxygen will b e added to his CPAP at 1 liter per minute. An over night oximetry will be ordered to check effectiveness of treatment. Patient to call me if he does not receive the pulse oximetry in the next couple of weeks. Patient to follow up with PCP for further evaluation of hypoxia and agreed with plan. * * Change CPAP pressure to 10 cmH2O * add oxygen to CPAP at 1 liter per minute * overnight pulse oximetry on CPAP with oxygen as ordered * reduce heated hose. * Notify me if snoring with mask or feeling that the pressure is too much or too little * Attempt to lose weight * Follow up with PCP for further evaluation of hypoxia and diet consultation referral. * Return for follow up in 1- 2 months , or sooner if concerns arise Prescriptions: Other (oxygen 1 liter per CPAP ) I spent 100% of this 40 minute visit face to face with the patient with greater than 50% of this was spent time counseling the patient and coordination of care.
== END 2019-02-03 11:09 | disposition home or self-care (01) ==
LOC: SC 11:08
PROVIDERS: ATTEND Nurse Practitioner Family
DX: G47.33 Obstructive sleep apnea (adult) (pediatric) (principal); R09.02 Hypoxemia; E66.01 Morbid (severe) obesity due to excess calories; Z68.41 Body mass index [BMI] 40.0-44.9, adult
CPT/HCPCS: 99212; 99215

== ENCOUNTER 2019-02-10 14:55 | Outpatient (CLI) | payer BC ==
[2019-02-10 16:20] LABS: PSA FREE 0.27 ng/mL (0.16-2.81)
[2019-02-10 16:21] LABS: PSA TOTAL 3.59 ng/mL (0.000-2.000)
== END 2019-02-10 14:56 | disposition home or self-care (01) ==
LOC: LAB 14:55
PROVIDERS: ATTEND Urology
DX: R97.20 Elevated prostate specific antigen [PSA] (principal)
CPT/HCPCS: 36415; 84153; 84154

== ENCOUNTER 2019-10-23 11:23 | Outpatient (CLI) | payer MEDICARE ==
[2019-10-23 11:58] LABS: BASOPHILS % (AUTO) 0.5 %; EOSINOPHILS # (AUTO) 0.1 10^3/uL (0.0-0.7); EOSINOPHILS % (AUTO) 2.1 %; HGB - HEMOGLOBIN 16.1 g/dL (14.0-18.0); LYMPHOCYTES # (AUTO) 1.6 10^3/uL (1.5-3.5); LYMPHOCYTES % (AUTO) 24.8 %; MEAN CORPUSCULAR HEMOGLOBIN 30.5 pg (27.0-31.0); MEAN CORPUSCULAR HGB CONC 32.9 g/dL (32.0-36.0); MEAN CORPUSCULAR VOLUME 92.8 fL (80.0-94.0); MEAN PLATELET VOLUME 10.1 fL (7.4-11.4); MONOCYTES # (AUTO) 0.6 10^3/uL (0.0-1.0); MONOCYTES % (AUTO) 10.1 %; NEUTROPHILS # (AUTO) 3.9 10^3/uL (1.5-6.6); NEUTROPHILS % (AUTO) 61.9 %; PLT - PLATELET COUNT 195 10^3/uL (130-450); RED BLOOD COUNT 5.28 10^6/uL (4.70-6.10); RED CELL DISTRIBUTION WIDTH 13.4 % (12.0-15.0); WHITE BLOOD COUNT 6.3 x10^3/uL (4.8-10.8)
[2019-10-23 12:15] LABS: ALBUMIN 4.4 g/dL (3.2-5.5); ALBUMIN/GLOBULIN RATIO 1.5 (1.0-2.2); ALKALINE PHOSPHATASE 75 IU/L (42-121); ALT ALANINE AMINOTRANSFERASE 28 IU/L (10-60); AST ASPARTATE AMINOTRANSFERASE 24 IU/L (10-42); BILIRUBIN,TOTAL 0.9 mg/dL (0.2-1.0); BUN - BLOOD UREA NITROGEN 21 mg/dL (6-20); CALCIUM 8.8 mg/dL (8.5-10.3); CARBON DIOXIDE - CO2 29 mmol/L (21-32); CHLORIDE 99 mmol/L (101-111); CHOL/HDL RATIO 5.1 (<5.0); CHOLESTEROL 269 mg/dL; GLUCOSE 118 mg/dL (70-100); HDL CHOLESTEROL 53 mg/dL; LDL CHOLESTEROL,CALCULATED 180 mg/dL; LDL/HDL RATIO 3.4 (<3.6); SODIUM 136 mmol/L (135-145); TOTAL PROTEIN 7.4 g/dL (6.7-8.2); VLDL CHOLESTEROL 36 mg/dL
== END 2019-10-23 11:24 | disposition home or self-care (01) ==
LOC: LAB 11:23
PROVIDERS: ATTEND Nurse Practitioner
DX: I10 Essential (primary) hypertension (principal); Z12.5 Encounter for screening for malignant neoplasm of prostate; E78.5 Hyperlipidemia, unspecified; E55.9 Vitamin D deficiency, unspecified; R53.83 Other fatigue; F10.10 Alcohol abuse, uncomplicated
CPT/HCPCS: 36415; 80053; 80061; 82306; 84443; 85025; G0103; 83721; 84153

== ENCOUNTER 2019-10-31 13:43 | Outpatient (CLI) | payer MEDICARE | END 2019-10-31 13:44 | disposition home or self-care (01) | LOC: LAB 13:43 | PROVIDERS: ATTEND Surgery | DX: Z01.818 Encounter for other preprocedural examination (principal); K40.91 Unilateral inguinal hernia, without obstruction or gangrene, recurrent; Z20.828 Contact with and (suspected) exposure to other viral communicable diseases ==

== ENCOUNTER 2019-11-04 07:46 | Day surgery (SDC) | payer MEDICARE ==
[~2019-11-04 07:46] MED LIST: CLINDAMYCIN IV 900 MG/50 ML IV ONE
[2019-11-04] MEDS ORDERED: DEXAMETHASONE 4 MG/ML VIAL IVP ONE (07:47)
[2019-11-04] MEDS ORDERED: MIDAZOLAM 2 MG/2 ML VIAL IVP ONE (07:47)
[2019-11-04] MEDS ORDERED: ONDANSETRON 4 MG/2 ML VIAL IVP ONE (07:47)
[2019-11-04] MEDS ORDERED: ePHEDrine 50 MG/ML VIAL IVP ONE (07:47)
[2019-11-04] MEDS ORDERED: ALBUTEROL 6.7 GM INHALER INH ONE (07:47)
[2019-11-04] MEDS ORDERED: fentaNYL 100 MCG/2 ML VIAL IVP ONE (07:47)
[2019-11-04] MEDS ORDERED: PROPOFOL 200 MG/20 ML VIAL IVP ONE (07:47)
[2019-11-04] MEDS ORDERED: LACTATED RINGERS 1,000 ML IV ONE ×3 (08:14→09:43)
--- NOTE | 2019-11-04 08:20 | ANESTHESIA ---
Pre-Anesthesia VS, & Labs - Diagnosis left inguinal hernia - Procedure left inguinal hernia repair ,open Vital Signs: Temp Pulse Resp BP Pulse Ox 36.5 C 74 16 147/92 H 98 11/04/19 07:52 11/04/19 07:52 11/04/19 07:52 11/04/19 07:52 11/04/19 07:52 Height 6 ft Weight (kg) 135.9 kg Body Mass Index 40.0 - NPO >8 hours Home Medications and Allergies Home Medications: Ambulatory Orders Albuterol Sulfate [Proair Hfa Inhaler] 1 - 2 puffs INH Q4H PRN 10/22/19 Budesonide/Formoterol Fumarate [Symbicort 160-4.5 Mcg Inhaler] 1 puffs IH BID 10/22/19 Finasteride 5 mg PO DAILY 10/22/19 Ipratropium [Atrovent] 1 puffs INH Q6H 10/22/19 Losartan [Cozaar] 50 mg PO DAILY 10/22/19 Pantoprazole [Protonix] 40 mg PO BID 10/22/19 amLODIPine [Norvasc] 5 mg PO DAILY 10/22/19 Amitriptyline HCl 25 - 50 mg PO DAILY PM 01/11/18 Azelastine HCl [Astepro] 4 spray NS DAILY 01/11/18 Diclofenac Sodium [Diclo Gel] 1 applic TP TID 01/11/18 Duloxetine HCl [Cymbalta] 60 mg PO DAILY 01/11/18 Oxycodone HCl 10 mg PO Q4HR PRN 01/11/18 Pregabalin [Lyrica] 150 mg PO BID 01/11/18 Tamsulosin [Flomax] 0.4 mg PO DAILY PM 01/11/18 Zolpidem Tartrate [Ambien] 10 mg PO DAILY PM PRN 01/11/18 clonazePAM [Clonazepam] 1 mg PO DAILY PM 01/11/18 Mometasone Furoate [Nasonex] 2 sprays NS BID 01/17/18 Albuterol Sulfate [Proair Hfa Inhaler] 1 - 2 puffs INH Q4H PRN 10/22/19 Budesonide/Formoterol Fumarate [Symbicort 160-4.5 Mcg Inhaler] 1 puffs IH BID 10/22/19 Finasteride 5 mg PO DAILY 10/22/19 Ipratropium [Atrovent] 1 puffs INH Q6H 10/22/19 Losartan [Cozaar] 50 mg PO DAILY 10/22/19 Pantoprazole [Protonix] 40 mg PO BID 10/22/19 amLODIPine [Norvasc] 5 mg PO DAILY 10/22/19 Allergies/Adverse Reactions: Allergies Allergy/AdvReac Type Severity Reaction Status Date / Time cefaclor [From [facility]] Allergy Rash Verified 10/22/19 14:30 Anes History & Medical History - Anesthetic History Anesthesia Complications: reports: No previous complications - Medical History Cardiovascular: reports: Hypertension Pulmonary: reports: Asthma, Sleep apnea, CPAP use Gastrointestinal: reports: None Urinary: reports: Benign prostate hypertrophy Musculoskeletal: reports: Chronic back pain Endocrine/Autoimmune: reports: None Skin: reports: None Smoking Status: Never smoker - Surgical History General: Colonoscopy, Other Orthopedic: Spine surgery Exam Dental: WNL Mouth Opening: Greater than 4 Fingerbreadths Neck Mobility: Normal Mallampati classification: I Thyromental Distance: greater than 6 cm Respiratory: Lungs clear Cardiovascular: Regular rate, Normal S1, Normal S2 Mental/Cognitive Status: Alert/Oriented X3 Plan Anesthesia Type: General Consent for Procedure(s) Verified and Reviewed: Yes Code Status: Attempt Resuscitation ASA classification: 2-Mild systemic disease Is this case an emergency?: No
[2019-11-04] MEDS ORDERED: LIDOCAINE-MPF 1% 30 ML VIAL ONE (08:30)
[2019-11-04] MEDS ORDERED: BUPIVACAINE 0.25% PF 30 ML VIAL ONE (08:55)
[2019-11-04] MEDS ORDERED: BUPIVACAINE 0.25% PF 30 ML VIAL SUBQ ONE (09:02)
[2019-11-04] MEDS ORDERED: oxyCODONE 5 MG TABLET PO PRN (10:35)
[2019-11-04] MEDS ORDERED: HYDROmorphone 0.5 MG/0.5 ML SYRINGE ONE (11:00)
--- NOTE | 2019-11-04 11:11 | OPERATIVE REPORT ---
DATE OF SERVICE: 11/04/2019 Physician: Gomez Salazar MD PREOPERATIVE DIAGNOSIS: Left inguinal hernia with bladder involvement. POSTOPERATIVE DIAGNOSIS: Large direct inguinal hernia, incarcerated. PROCEDURE PERFORMED: Open repair of left inguinal hernia with mesh, Galina. SURGEON: Gomez Salazar MD TOWER SWITCH OPERATOR: None. ANESTHESIA: Laryngeal mask anesthesia; next, local anesthesia with Marcaine. COMPLICATIONS: None. SPECIMENS: A significant amount of preperitoneal adipose tissue was removed; however, not sent for pathology. ESTIMATED BLOOD LOSS: None. FINDINGS: Incarcerated preperitoneal adipose tissue and a large direct inguinal hernia. The floor was repaired with a 2-0 silk pursestring suture, reducing the bladder. INDICATIONS FOR PROCEDURE: The patient is a 59-year-old gentleman who has a very large left inguinal hernia as well as bladder symptoms. He presents for open repair with mesh. Risks discussed, alternatives discussed. All questions answered and consent obtained. DETAILS OF PROCEDURE: The patient was properly identified, brought to the operating room and placed in supine position. He voided prior to surgery. Laryngeal mask anesthesia was induced. Sequential compression devices were placed. He was prepped and draped in a sterile fashion and given preoperative antibiotics. A 6 cm incision was made in the direction of Aleyda's lines just cephalad of the pubic tubercle. Dissection proceeded with cutting current. The superficial epigastric vein was identified, clamped, divided, and tied with 3-0 Vicryl. Dissection proceeded approximately 6 cm or more down to the aponeurosis. The aponeurosis was opened in the direction of its fibers extending to the external ring. The cord structures were mobilized and brought up. He had nearly 6 x 4 x 6 cm of herniated preperitoneal adipose tissue. He also had a large direct bulge measuring approximately 8 x 4 to 5 cm in diameter. The direct bulge had tissue consistent with bladder. This was mobilized away from the surrounding tissue and reduced. The floor was repaired with a 2-0 silk pursestring suture. Three separate aspects of herniated preperitoneal adipose tissue were mobilized away from the cord structures, clamped, divided, and tied with 3-0 Vicryl. The ilioinguinal nerve was not identified; however, great care was taken not to entrap a nerve. The iliohypogastric nerve was identified, and lay loose between interrupted sutures at the end of the procedure. A polypropylene mesh was cut to size and with tails. It was secured with multiple interrupted 0 Ethibond sutures. Sutures were placed at the pubic tubercle along the shelving border of Poupart ligament and medially along the musculature fascia of the internal oblique. Again, care was taken not to entrap the iliohypogastric nerve. The medial tail of the mesh was secured to the shelving border of Poupart ligament with 3 interrupted 0 Ethibond sutures, recreating the internal ring of appropriate size. The aponeurosis was closed with a running 2-0 Vicryl suture. Roni's was closed with interrupted 3-0 Vicryl suture. Skin was closed with a running 4-0 Monocryl subcuticular suture. Dressing was applied. He tolerated the procedure well. TD: 11/04/2019 11:02 PABLO
[2019-11-04] MEDS ORDERED: oxyCODONE 5 MG TABLET ONE (11:25)
[2019-11-04 12:24] VITALS: BP 130/78
== END 2019-11-04 07:47 | disposition home or self-care (01) ==
LOC: SDS 07:46
PROVIDERS: ATTEND Surgery
DX: K40.90 Unilateral inguinal hernia, without obstruction or gangrene, not specified as recurrent (principal); G47.30 Sleep apnea, unspecified; I10 Essential (primary) hypertension; J45.909 Unspecified asthma, uncomplicated
CPT/HCPCS: 49507; A9270; C1781; J1170; J7120; J7613

== ENCOUNTER 2020-02-04 10:45 | Outpatient (CLI) | payer MEDICARE ==
[2020-02-04 11:02] LABS: BASOPHILS % (AUTO) 0.5 %; EOSINOPHILS # (AUTO) 0.2 10^3/uL (0.0-0.7); EOSINOPHILS % (AUTO) 2.3 %; HGB - HEMOGLOBIN 15.7 g/dL (14.0-18.0); LYMPHOCYTES # (AUTO) 1.5 10^3/uL (1.5-3.5); LYMPHOCYTES % (AUTO) 19.7 %; MEAN CORPUSCULAR HEMOGLOBIN 30.9 pg (27.0-31.0); MEAN CORPUSCULAR HGB CONC 33.2 g/dL (32.0-36.0); MEAN CORPUSCULAR VOLUME 93.1 fL (80.0-94.0); MONOCYTES # (AUTO) 0.7 10^3/uL (0.0-1.0); MONOCYTES % (AUTO) 9.5 %; NEUTROPHILS # (AUTO) 5.2 10^3/uL (1.5-6.6); NEUTROPHILS % (AUTO) 67.1 %; PLT - PLATELET COUNT 216 10^3/uL (130-450); RED BLOOD COUNT 5.08 10^6/uL (4.70-6.10); RED CELL DISTRIBUTION WIDTH 13.7 % (12.0-15.0); WHITE BLOOD COUNT 7.7 x10^3/uL (4.8-10.8)
[2020-02-04 11:23] LABS: ALBUMIN 4.1 g/dL (3.2-5.5); ALBUMIN/GLOBULIN RATIO 1.3 (1.0-2.2); ALKALINE PHOSPHATASE 71 IU/L (42-121); ALT ALANINE AMINOTRANSFERASE 23 IU/L (10-60); AST ASPARTATE AMINOTRANSFERASE 18 IU/L (10-42); BILIRUBIN,TOTAL 0.7 mg/dL (0.2-1.0); BUN - BLOOD UREA NITROGEN 25 mg/dL (6-20); CALCIUM 9.4 mg/dL (8.5-10.3); CARBON DIOXIDE - CO2 31 mmol/L (21-32); CHLORIDE 100 mmol/L (101-111); CHOL/HDL RATIO 3.4 (<5.0); CHOLESTEROL 178 mg/dL; CREATININE 0.9 mg/dL (0.6-1.2); GLUCOSE 106 mg/dL (70-100); HDL CHOLESTEROL 52 mg/dL; LDL CHOLESTEROL,CALCULATED 104 mg/dL; SODIUM 140 mmol/L (135-145); TOTAL PROTEIN 7.2 g/dL (6.7-8.2); VLDL CHOLESTEROL 22 mg/dL
[2020-02-04 13:30] LABS: HEMOGLOBIN A1c% 5.5 % (4.27-6.07)
== END 2020-02-04 10:46 | disposition home or self-care (01) ==
LOC: LAB 10:45
PROVIDERS: ATTEND Family Medicine
DX: E78.5 Hyperlipidemia, unspecified (principal); Z79.899 Other long term (current) drug therapy; E55.9 Vitamin D deficiency, unspecified; R73.01 Impaired fasting glucose
CPT/HCPCS: 36415; 80053; 80061; 82306; 83036; 83721; 84443; 85025

== ENCOUNTER 2020-05-05 17:34 | Outpatient (CLI) | payer MEDICARE ==
--- NOTE | 2020-05-06 12:20 | Ultrasound Report ---
PROCEDURE: Pelvic Limited or F/U INDICATIONS: RT GROIN PAIN TECHNIQUE: Real-time transabdominal scanning was performed of the right inguinal region. COMPARISON: None. FINDINGS: Targeted imaging of the right inguinal region/groin at the patient directed area of concern demonstra nadia no sonographic evidence for inguinal hernias, mass lesions, adenopathy, or abnormal fluid collect ions. IMPRESSION: Negative sonographic evaluation of the right inguinal region for hernia, mass, adenopath y or abnormal fluid collections. Reviewed by: Ernesto Graves MD on 05/06/2020 11:19 AM [facility] Approved by: Ernesto Graves MD on 05/06/2020 11:19 AM [facility] Station ID: [id number]
== END 2020-05-05 17:35 | disposition home or self-care (01) ==
LOC: DI 17:34
PROVIDERS: ATTEND Internal Medicine
DX: R10.31 Right lower quadrant pain (principal)

== ENCOUNTER 2020-05-13 08:00 | Outpatient (CLI) | payer MEDICARE ==
[2020-05-13 15:08] LABS: CALCIUM 9.3 mg/dL (8.5-10.3); CREATININE 1.1 mg/dL (0.6-1.2)
== END 2020-05-13 23:59 | disposition home or self-care (01) ==
LOC: LAB 08:00
PROVIDERS: ATTEND Internal Medicine
DX: R10.31 Right lower quadrant pain (principal)
CPT/HCPCS: 36415; 80048

== ENCOUNTER 2020-05-13 14:17 | Outpatient (CLI) | payer MEDICARE ==
[2020-05-13] MEDS ORDERED: IOVERSOL 320 50 ML VIAL ONE (14:30)
[2020-05-13] MEDS ORDERED: IOVERSOL 320 100 ML VIAL IVP ONE ×2 (14:30→20:29)
--- NOTE | 2020-05-13 17:04 | CT Report ---
PROCEDURE: Abdomen/Pelvis W INDICATIONS: RT GROIN PAIN CONTRAST: IV CONTRAST: Optiray 320 ml: 100 PO CONTRAST: Optiray 320 ml50 TECHNIQUE: After the administration of IV and oral contrast, 5 mm thick sections acquired from the diaphragms to the symphysis. 5 mm thick coronal and sagittal reformats were acquired. For radiation dose reducti on, the following was used: automated exposure control, adjustment of mA and/or kV according to elvia ent size. COMPARISON: Pelvic ultrasound 05/05/2020 FINDINGS: Image quality: Excellent. ABDOMEN: Lung bases: Lung bases demonstrate right basilar atelectatic changes and asymmetric right hemidiaphr agm elevation. Heart size is normal. Moderate coronary artery disease. Solid organs: Liver and spleen are normal in size and enhancement. Gallbladder is partially decompr essed. Biliary system is non dilated. Pancreas enhances normally. No adrenal nodules. Kidneys demo nstrate mild cortical thinning bilaterally with several parapelvic and exophytic cysts present. No de finite hydronephrosis, intrarenal calculus, or solid mass. Peritoneum and bowel: Bowel loops demonstrate normal wall thickness and caliber. No free fluid or a ir. Nodes and vessels: No retroperitoneal or mesenteric adenopathy by size criteria. Aorta and inferior vena cava are normal in size. Miscellaneous: No ventral hernias. PELVIS: Genitourinary: The urinary bladder is decompressed. Bladder wall thickness is normal. Miscellaneous: No inguinal hernias or adenopathy. No structural abnormalities seen in the right ing uinal region. Bones: No suspicious bony lesions. Surgical fusion at the L4-5 level. No vertebral body compression fractures. Epidural neurostimulator present in the dorsal soft tissues entering the spinal canal at the T9 level. IMPRESSION: 1. No evidence of right inguinal hernia. 2. Bilateral renal cysts. Reviewed by: Kayli Berrios MD on 05/13/2020 5:03 PM PST Approved by: Kayli Berrios MD on 05/13/2020 5:03 PM PST Station ID: [id number]
[2020-05-13] MEDS ORDERED: IOVERSOL 320 50 ML VIAL PO ONE (20:29)
== END 2020-05-13 14:18 | disposition home or self-care (01) ==
LOC: LAB 14:17
PROVIDERS: ATTEND Internal Medicine
DX: N28.1 Cyst of kidney, acquired (principal)
CPT/HCPCS: 74177; Q9967

== ENCOUNTER 2020-05-26 09:49 | Outpatient (CLI) | payer MEDICARE ==
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
== END 2020-05-26 09:50 | disposition home or self-care (01) ==
LOC: SC 09:49
PROVIDERS: ATTEND Nurse Practitioner Family
DX: G47.33 Obstructive sleep apnea (adult) (pediatric) (principal); E66.01 Morbid (severe) obesity due to excess calories; Z68.41 Body mass index [BMI] 40.0-44.9, adult
CPT/HCPCS: 99212; G0463

== ENCOUNTER 2020-05-27 12:37 | Emergency (ER) | payer MEDICARE ==
[2020-05-27 12:50] VITALS: BP 148/95
--- NOTE | 2020-05-27 13:12 | ED Physician Documentation ---
PD HPI OPHTHO - Stated complaint Stated Complaint: VISION COMPLICATION - Chief complaint Chief Complaint: Heent - History obtained from History obtained from: Patient - Additional information Additional information: His vision is slightly blurry in that eye.Noticed after sneezing this morning that his left pupil was dilated. It is painless. He denies using any medications in the eye. There is no associated headache. Review of Systems Constitutional: reports: Reviewed and negative Eyes: reports: Reviewed and negative Ears: reports: Reviewed and negative Nose: reports: Reviewed and negative Throat: reports: Reviewed and negative PD PAST MEDICAL HISTORY - Past Medical History Past Medical History: Yes Cardiovascular: Hypertension Respiratory: Asthma, Sleep apnea, CPAP use Endocrine/Autoimmune: None GI: None : Benign prostate hypertrophy HEENT: Chronic vision loss Psych: None Musculoskeletal: Chronic back pain Derm: None - Past Surgical History Past Surgical History: Yes General: Colonoscopy, Other Ortho: Spine surgery - Present Medications Home Medications: Ambulatory Orders Medication Instructions Recorded Confirmed Amitriptyline HCl 25 - 50 mg PO DAILY PM 01/11/18 11/04/19 Azelastine HCl [Astepro] 4 spray NS DAILY 01/11/18 11/04/19 Diclofenac Sodium [Diclo Gel] 1 applic TP TID 01/11/18 11/04/19 Duloxetine HCl [Cymbalta] 60 mg PO DAILY 01/11/18 11/04/19 Oxycodone HCl 10 mg PO Q4HR PRN 01/11/18 11/04/19 Pregabalin [Lyrica] 150 mg PO BID 01/11/18 10/22/19 Tamsulosin [Flomax] 0.4 mg PO DAILY PM 01/11/18 11/04/19 Zolpidem Tartrate [Ambien] 10 mg PO DAILY PM PRN 01/11/18 11/04/19 clonazePAM [Clonazepam] 1 mg PO DAILY PM 01/11/18 11/04/19 Mometasone Furoate [Nasonex] 2 sprays NS BID 01/17/18 11/04/19 Albuterol Sulfate [Proair Hfa 1 - 2 puffs INH Q4H PRN 10/22/19 10/22/19 Inhaler] Budesonide/Formoterol Fumarate 1 puffs IH BID 10/22/19 11/04/19 [Symbicort 160-4.5 Mcg Inhaler] Finasteride 5 mg PO DAILY 10/22/19 11/04/19 Ipratropium [Atrovent] 1 puffs INH Q6H 10/22/19 11/04/19 Losartan [Cozaar] 50 mg PO DAILY 10/22/19 11/04/19 Pantoprazole [Protonix] 40 mg PO BID 10/22/19 11/04/19 amLODIPine [Norvasc] 5 mg PO DAILY 10/22/19 11/04/19 - Allergies Allergies/Adverse Reactions: Allergies Allergy/AdvReac Type Severity Reaction Status Date / Time cefaclor [From Ceclor] Allergy Rash Verified 05/27/20 12:49 - Social History Does the pt smoke?: No Smoking Status: Never smoker Does the pt drink ETOH?: Yes Does the pt have substance abuse?: No PD ED PE NORMAL - Vitals Vital signs reviewed: Yes - General General: Alert and oriented X 3, No acute distress - HEENT HEENT: EOMI, Other (6 mm right, left millimeter left pupil. Both are reactive and there is no afferent pupillary defect on either side.) - Neuro Neuro: Alert and oriented X 3, injection wax molder 2-12 intact, No motor deficit, No sensory deficit, Normal speech Results - Vitals Vitals: Vital Signs - 24 hr 05/27/20 12:46 Temperature 36.0 C L Heart Rate 93 Respiratory 16 Rate Blood Pressure 148/95 H O2 Saturation 95 Oxygen O2 Source Room air PD MEDICAL DECISION MAKING - ED course ED course: I discussed with him that this is generally a benign process that will self resolve, most likely would be pharmacologic mydriasis. I recommended CT angio to rule out aneurysm but after discussion he declined and prefers watchful waiting. Departure - Departure Disposition: 01 Home, Self Care Clinical Impression: Anisocoria Condition: Good Record reviewed to determine appropriate education?: Yes Follow-Up: Elgin Rosa MD [Provider Admit Priv/Credential] - Comments: As discussed, a single dilated pupil is usually a benign process. That said if you change your mind about CT angiography to rule out aneurysm please return for reevaluation. Or if it is not better by tomorrow please return or follow-up with the eye doctor listed on this form. Discharge Date/Time: 05/27/20 13:18
== END 2020-05-27 13:18 | disposition home or self-care (01) ==
LOC: ED 12:37
DX: H57.02 Anisocoria (principal); I10 Essential (primary) hypertension
CPT/HCPCS: 99281; 99283

== ENCOUNTER 2020-08-13 07:00 | Outpatient (CLI) | payer MEDICARE ==
--- NOTE | 2020-08-13 14:36 | XRAY Report ---
PROCEDURE: Elbow 3 View LT INDICATIONS: LEFT MEDIAL ELBOW EPICONDYLITIS TECHNIQUE: 3 views of the elbow were acquired. COMPARISON: None FINDINGS: Bones: No fractures or dislocations. No suspicious bony lesions. Soft tissues: Soft tissue edema is present particularly overlying the medial epicondyle. No suspiciou s soft tissue calcifications. IMPRESSION: Soft tissue medial edema. No underlying osseous abnormality. Overall appearance is most suggestive of inflammatory change. Reviewed by: Bruna Hamilton MD on 08/13/2020 2:34 PM PDT Approved by: Bruna Hamilton MD on 08/13/2020 2:34 PM PDT Station ID: [id number]
== END 2020-08-13 23:59 | disposition home or self-care (01) ==
LOC: DI.N 07:00
PROVIDERS: ATTEND Physician Assistant
DX: M77.02 Medial epicondylitis, left elbow (principal)

== ENCOUNTER 2021-02-23 08:46 | Outpatient (CLI) | payer MEDICARE ==
[2021-02-23 09:10] LABS: BASOPHILS % (AUTO) 0.4 %; EOSINOPHILS # (AUTO) 0.2 10^3/uL (0.0-0.7); EOSINOPHILS % (AUTO) 2.4 %; HCT - HEMATOCRIT 45.9 % (42.0-52.0); LYMPHOCYTES # (AUTO) 1.9 10^3/uL (1.5-3.5); LYMPHOCYTES % (AUTO) 24.1 %; MEAN CORPUSCULAR HEMOGLOBIN 30.3 pg (27.0-31.0); MEAN CORPUSCULAR HGB CONC 32.7 g/dL (32.0-36.0); MEAN CORPUSCULAR VOLUME 92.7 fL (80.0-94.0); MEAN PLATELET VOLUME 10.2 fL (7.4-11.4); MONOCYTES # (AUTO) 0.7 10^3/uL (0.0-1.0); MONOCYTES % (AUTO) 8.5 %; NEUTROPHILS # (AUTO) 5.1 10^3/uL (1.5-6.6); NEUTROPHILS % (AUTO) 64.1 %; PLT - PLATELET COUNT 208 10^3/uL (130-450); RED BLOOD COUNT 4.95 10^6/uL (4.70-6.10); RED CELL DISTRIBUTION WIDTH 13.3 % (12.0-15.0); WHITE BLOOD COUNT 7.9 x10^3/uL (4.8-10.8)
[2021-02-23 09:35] LABS: ALBUMIN 4.3 g/dL (3.2-5.5); ALBUMIN/GLOBULIN RATIO 1.4 (1.0-2.2); ALKALINE PHOSPHATASE 66 IU/L (42-121); ALT ALANINE AMINOTRANSFERASE 31 IU/L (10-60); AST ASPARTATE AMINOTRANSFERASE 24 IU/L (10-42); BUN - BLOOD UREA NITROGEN 30 mg/dL (6-20); CALCIUM 9.4 mg/dL (8.5-10.3); CARBON DIOXIDE - CO2 32 mmol/L (21-32); CHLORIDE 98 mmol/L (101-111); CHOL/HDL RATIO 4.4 (<5.0); CHOLESTEROL 199 mg/dL; GFR - MDRD 76 (>89); GLUCOSE 110 mg/dL (70-100); HDL CHOLESTEROL 45 mg/dL; LDL CHOLESTEROL,CALCULATED 122 mg/dL; LDL/HDL RATIO 2.7 (<3.6); POTASSIUM 4.2 mmol/L (3.5-5.0); SODIUM 137 mmol/L (135-145); TOTAL PROTEIN 7.3 g/dL (6.7-8.2); TRIGLYCERIDES 158 mg/dL; VLDL CHOLESTEROL 32 mg/dL
[2021-02-23 09:44] LABS: THYROID STIMULATING HORMONE 1.15 uIU/mL (0.34-5.60)
[2021-02-23 11:32] LABS: BILIRUBIN,URINE NEGATIVE (NEGATIVE); GLUCOSE, URINE (UA) NEGATIVE (NEGATIVE); KETONES,URINE (UA) NEGATIVE (NEGATIVE); LEUKOCYTE ESTERASE, URINE NEGATIVE (NEGATIVE); NITRITE,URINE NEGATIVE (NEGATIVE); OCCULT BLOOD,URINE NEGATIVE (NEGATIVE); PH,URINE 7.5 PH (5.0-7.5); PROTEIN,URINE NEGATIVE (NEGATIVE); UROBILINOGEN,URINE 0.2 (NORMAL) E.U./dL (NORMAL)
[2021-02-23 11:36] LABS: CLARITY,URINE CLEAR (CLEAR)
[2021-02-23 11:39] LABS: ESTIMATED AVERAGE GLUCOSE 120 mg/dL (70-100); HEMOGLOBIN A1c% 5.8 % (4.27-6.07)
== END 2021-02-23 08:47 | disposition home or self-care (01) ==
LOC: LAB 08:46
PROVIDERS: ATTEND Nurse Practitioner
DX: I10 Essential (primary) hypertension (principal); E78.5 Hyperlipidemia, unspecified; R73.01 Impaired fasting glucose; N40.1 Benign prostatic hyperplasia with lower urinary tract symptoms; Z13.29 Encounter for screening for other suspected endocrine disorder
CPT/HCPCS: 36415; 80053; 80061; 81003; 83036; 84443; 85025; G0103; 81001; 83721; 84153

== ENCOUNTER 2021-06-10 14:51 | Outpatient (CLI) | payer MEDICARE ==
--- NOTE | 2021-06-10 16:52 | XRAY Report ---
PROCEDURE: Shoulder 3 View LT INDICATIONS: PAIN IN LEFT SHOULDER TECHNIQUE: 3 views of the shoulder were acquired. COMPARISON: None. FINDINGS: Bones: No acute fractures or dislocations. No suspicious bony lesions. Visualized ribs appear inta ct. Mild to moderate acromioclavicular joint osteoarthrosis. Minimal degenerative spurring of the gl enoid rim. Soft tissues: No suspicious soft tissue calcifications. Electronic leads are seen projecting over th e spine. IMPRESSION: No acute osseous abnormality. Moderate acromioclavicular osteoarthrosis. If symptoms per sist or there is continued clinical concern, further evaluation with MRI or CT may be helpful. Reviewed by: Jacky Salazar MD on 06/10/2021 4:50 PM PST Approved by: Jacky Salazar MD on 06/10/2021 4:50 PM PST Station ID: [id number]
== END 2021-06-10 14:52 | disposition home or self-care (01) ==
LOC: DI 14:51
PROVIDERS: ATTEND Nurse Practitioner
DX: M19.012 Primary osteoarthritis, left shoulder (principal)

== ENCOUNTER 2021-09-01 12:56 | Outpatient (CLI) | payer MEDICARE ==
--- NOTE | 2021-09-01 13:14 | XRAY Report ---
PROCEDURE: Chest 2 View X-Ray INDICATIONS: SHORTNESS OF BREATH TECHNIQUE: 2 view(s) of the chest. COMPARISON: May 03, 2017. FINDINGS: SUPPORT DEVICES: Redemonstrated partially imaged, spinal device. LUNGS/PLEURA: Reduced lung lungs. No focal consolidation, pleural effusion or space-occupying pneumot horax. MEDIASTINUM: The cardiac silhouette is partially obscured. BONES/SOFT TISSUES: No acute abnormality. Interposed right colon. Elevation of the diaphragm. IMPRESSION: 1.No acute cardiopulmonary abnormality. Reviewed by: Hermann Jordan MD on 09/01/2021 1:13 PM PDT Approved by: Hermann Jordan MD on 09/01/2021 1:13 PM PDT Station ID: [id number]
== END 2021-09-01 12:57 | disposition home or self-care (01) ==
LOC: DI.N 12:56
PROVIDERS: ATTEND Nurse Practitioner
DX: R06.02 Shortness of breath (principal)
CPT/HCPCS: 36415; 80053; 83880; 85025

== ENCOUNTER 2021-09-01 12:59 | Outpatient (CLI) | payer MEDICARE ==
[2021-09-01 18:02] LABS: BASOPHILS % (AUTO) 0.4 %; EOSINOPHILS # (AUTO) 0.1 10^3/uL (0.0-0.7); EOSINOPHILS % (AUTO) 1.1 %; HCT - HEMATOCRIT 42.9 % (42.0-52.0); HGB - HEMOGLOBIN 14.1 g/dL (14.0-18.0); LYMPHOCYTES # (AUTO) 1.5 10^3/uL (1.5-3.5); LYMPHOCYTES % (AUTO) 17.3 %; MEAN CORPUSCULAR HEMOGLOBIN 30.7 pg (27.0-31.0); MEAN CORPUSCULAR HGB CONC 32.9 g/dL (32.0-36.0); MEAN CORPUSCULAR VOLUME 93.3 fL (80.0-94.0); MEAN PLATELET VOLUME 10.9 fL (7.4-11.4); MONOCYTES # (AUTO) 0.6 10^3/uL (0.0-1.0); MONOCYTES % (AUTO) 7.1 %; NEUTROPHILS # (AUTO) 6.2 10^3/uL (1.5-6.6); NEUTROPHILS % (AUTO) 73.4 %; PLT - PLATELET COUNT 229 10^3/uL (130-450); RED CELL DISTRIBUTION WIDTH 13.7 % (12.0-15.0); WHITE BLOOD COUNT 8.5 x10^3/uL (4.8-10.8)
[2021-09-01 18:38] LABS: ALBUMIN 4.2 g/dL (3.2-5.5); ALBUMIN/GLOBULIN RATIO 1.3 (1.0-2.2); BILIRUBIN,TOTAL 0.5 mg/dL (0.2-1.0); CALCIUM 9.3 mg/dL (8.5-10.3); CREATININE 1.1 mg/dL (0.6-1.2); POTASSIUM 4.4 mmol/L (3.5-5.0); TOTAL PROTEIN 7.5 g/dL (6.7-8.2)
== END 2021-09-01 13:00 | disposition home or self-care (01) ==
LOC: LAB.N 12:59
PROVIDERS: ATTEND Nurse Practitioner
DX: R06.02 Shortness of breath (principal)
CPT/HCPCS: 36415; 80053; 83880; 85025

== ENCOUNTER 2021-09-14 10:51 | Outpatient (CLI) | payer MEDICARE ==
--- NOTE | 2021-09-14 11:12 | SLEEP CARE CONSULTATION ---
Information from patient questionnaire entered by Mele Centeno MA. I have reviewed and concur with the information entered by Mele Centeno MA. This document represents the service I personally performed and the decisions made by , Guerita Meeks ARNP. History of Present Illness Service Date and Time: 09/14/2021 1051 Previous diagnosis: Severe, Obstructive Sleep Apnea-Hypopnea Syndrome AHI: 38.9 (in 2018) Reason for follow up: annual (LAST SEEN 05/26/2020, EMIGDIO, ) Equipment type: CPAP Equipment obtained from: [employer] (getting supplies as needed) Mask style: Nasal Mask brand: Respironics (Wisp) Backup mask available: Yes (old mask) Last cushion change: 3 nights ago Prior sleep studies: Yes Year and Where: 2017 - [facility] Type of Sleep Study: Polysomnography HPI additional information: LISA VEGAS was diagnosed to have severe, AHI 38.9, obstructive sleep apnea- hypopnea syndrome and returned today for CPAP therapy annual follow-up. Sleep Study - Results Type of Sleep Study: Polysomnography Prior sleep studies: Yes Year and Where: 2017 - [facility] CPAP Compliance Data - Data Reviewed with Patient Average duration of nightly device use: 6 hours 21 minutes Compliance rate %: 90 (30 days; usage) Current pressure setting (cmH2O): 10.0 Average residual AHI: 1.2 Central apnea: 0.1 Obstructive apnea: 0.6 Average large leak: 11 minutes, 4 secs Subjective Patient concerns: reports: mask discomfort (just has to constantly adjust mask), air blowing in eyes, mask leak noise, nasal congestion (has lots of allergies causing nasal congestion) Observed to snore while using device: No Current pressure setting perceived as: too low On therapy, patient: reports: sleeping better, awakening more refreshed, being more awake and alert during the day, more rested overall. denies: drowsiness while driving Initial [place] Sleepiness Scale score: 10 (in 2018) Current [place] Sleepiness Scale score: 3 Allergies and Home Medications Home medication list reviewed: Yes (no changes) Allergy and home medication list: Allergies cefaclor [From Ceclor] Allergy (Verified 05/27/20 12:49) Rash Review of Systems Review of systems same as previous: Yes (no changes) Physical Exam Vital signs obtained and entered by: ARMANDO CABAN Blood Pressure: 138/97 (RESP 18, PULSE 82, LEFT) Cuff size: wrist Heart Rate: 82 O2 Saturation: 95 (PAPER MASK) Height: 6 ft Weight: 295 lb Body Mass Index: 40.0 BMI Classification: Morbidly Obese Impression and Plan 1. Obstructive Sleep Apnea-Hypopnea Syndrome, severe, with good treatment compliance and good apnea control. On CPAP therapy, the patient has better sleep quality and is more rested overall. Patient feels the pressure could go a little higher. His residual AHI is 1.2. The patients pressure will be changed to autoCPAP 11 cmH20 for patient comfort. Patient advised to contact me if pressure change is uncomfortable so that it can be adjusted. Goals for apnea control discussed. Patient is getting a lot of leaks around the mask. He states he is a side sleeper. He would like to look at other nasal masks to see if he likes a different one better. He is currently using a [employer] Wisp. I discussed with him using a CPAP pillow to help reduce mask leaks when laying on his side and gave him a sample of a [employer]raf FX nasal pillows mask to try. I will update his supply prescription and add a trial of other nasal masks for him. Patient's apnea severity and rationale for treatment to reduce apnea, improve sleep quality and reduce cardiovascular and cerebrovascular events was reviewed. I also reviewed the benefit of consistent device use of CPAP for hypertension. 2. Obesity, unspecified. Currently patients BMI is 40.0. Obesity increases the risk of apnea, CPAP pressure requirements and overall health risks especially cardiovascular and diabetes. Thus patient is advised to lose weight. Weight loss can be done with reducing portion size, reducing refined foods and balancing content with vegetables, fruit and whole grain foods. In addition, patient encouraged to get regular exercise. * Update supplies * Try a different style nasal mask * Change auto CPAP pressure to 11 cmH2O * Notify me if snoring with mask or feeling that the pressure is too much or too little * Attempt to lose weight * Call this office if any problems using CPAP * Return for follow up in 1 year, or sooner if concerns arise Mask provided: Yes Counseling Topics: Spare mask, Weight loss health impact Visit Type: In Office Time Spent with Patient (minutes): 24 Provider Statement: I spent 100% of the Face to Face Visit with the patient with greater than 50% spent counseling the patient and coordination of care.
[2021-09-14 11:13] VITALS: BP 138/97
== END 2021-09-14 10:52 | disposition home or self-care (01) ==
LOC: SC 10:51
PROVIDERS: ATTEND Nurse Practitioner Family
DX: G47.33 Obstructive sleep apnea (adult) (pediatric) (principal); E66.01 Morbid (severe) obesity due to excess calories; Z68.41 Body mass index [BMI] 40.0-44.9, adult
CPT/HCPCS: 99213; G0463; 99212

== ENCOUNTER 2021-09-14 14:06 | Outpatient (CLI) | payer MEDICARE | END 2021-09-14 14:07 | disposition home or self-care (01) | LOC: DI 14:06 | PROVIDERS: ATTEND Nurse Practitioner | DX: R06.02 Shortness of breath (principal); I51.7 Cardiomegaly; I35.8 Other nonrheumatic aortic valve disorders; I77.810 Thoracic aortic ectasia | CPT/HCPCS: 93306 ==

== ENCOUNTER 2021-10-17 11:05 | Outpatient (CLI) | payer MEDICARE ==
--- NOTE | 2021-10-17 13:37 | CT Report ---
PROCEDURE: CHEST WO INDICATIONS: CHRONIC COUGH TECHNIQUE: Noncontrast 1mm axial images were acquired from the pulmonary apices to the posterior costophrenic an gles. Axial 5 mm soft tissue kernel reconstructions were performed as well as 8 mm axial MIP and cor onal and sagittal 5 mm reformations. For radiation dose reduction, the following was used: automate d exposure control, adjustment of mA and/or kV according to patient size. COMPARISON: CT chest without, 07/04/2017. Chest x-ray, 2 views, 09/01/2021. FINDINGS: Image quality: Excellent. Lungs and pleura: There is right hemidiaphragm elevation and right basilar atelectasis. No acute air space opacities. There is a 5 mm groundglass nodule in the left lower lobe (series 5 image 48), unc hanged in size since 07/04/2017, likely benign. No pleural effusions or pneumothorax. Central and per ipheral airways are patent and normal in caliber. Mediastinum: Heart size is normal. Mild coronary calcification. No pericardial effusion. No medias tinal adenopathy by size criteria. Thoracic aorta and central pulmonary arteries are normal in size. Esophagus is normal in caliber. Tiny hiatal hernia. Bones and chest wall: No suspicious bony lesions. No vertebral body compression fractures. Note is made of a nerve stimulator in mid thoracic spine. No axillary or supraclavicular adenopathy by size criteria. The thyroid is normal in size and there are no incidental findings. Abdomen: There is a 3 x 2 cm exophytic cortical cyst in the superior pole of the left kidney. There a re parapelvic cysts in left kidney. Mild renal cortical thinning. No hydronephrosis. Mild hepatic st eatosis is noted. A few diverticula are noted. No diverticulitis. Moderate amount of stool in colon. IMPRESSION: 1. Right hemidiaphragm elevation and right basilar atelectasis. 2. Stable 5 mm groundglass nodule in the left lower lobe. 3. Mild coronary calcification. Reviewed by: Angely Evans MD on 10/17/2021 1:36 PM PDT Approved by: Angely Evans MD on 10/17/2021 1:36 PM PDT Station ID: [id number]
== END 2021-10-17 11:06 | disposition home or self-care (01) ==
LOC: DI 11:05
PROVIDERS: ATTEND Allergy & Immunology
DX: J98.11 Atelectasis (principal); R91.1 Solitary pulmonary nodule; I25.10 Atherosclerotic heart disease of native coronary artery without angina pectoris

== ENCOUNTER 2021-10-21 08:00 | Outpatient (CLI) | payer MEDICARE | END 2021-10-21 08:01 | disposition home or self-care (01) | LOC: LAB 08:00 | PROVIDERS: ATTEND Allergy & Immunology | DX: R05.3 Chronic cough (principal) | CPT/HCPCS: 81599 ==

== ENCOUNTER 2022-02-10 13:40 | Outpatient (CLI) | payer MEDICARE ==
[2022-02-10 13:58] LABS: BASOPHILS % (AUTO) 0.3 %; EOSINOPHILS # (AUTO) 0.2 10^3/uL (0.0-0.7); EOSINOPHILS % (AUTO) 1.8 %; HCT - HEMATOCRIT 44.5 % (42.0-52.0); HGB - HEMOGLOBIN 14.6 g/dL (14.0-18.0); LYMPHOCYTES # (AUTO) 1.8 10^3/uL (1.5-3.5); LYMPHOCYTES % (AUTO) 20.4 %; MEAN CORPUSCULAR HEMOGLOBIN 30.6 pg (27.0-31.0); MEAN CORPUSCULAR HGB CONC 32.8 g/dL (32.0-36.0); MEAN CORPUSCULAR VOLUME 93.3 fL (80.0-94.0); MEAN PLATELET VOLUME 9.6 fL (7.4-11.4); MONOCYTES # (AUTO) 0.8 10^3/uL (0.0-1.0); MONOCYTES % (AUTO) 9.6 %; NEUTROPHILS # (AUTO) 5.9 10^3/uL (1.5-6.6); NEUTROPHILS % (AUTO) 67.3 %; PLT - PLATELET COUNT 211 10^3/uL (130-450); RED BLOOD COUNT 4.77 10^6/uL (4.70-6.10); RED CELL DISTRIBUTION WIDTH 13.5 % (12.0-15.0); WHITE BLOOD COUNT 8.8 x10^3/uL (4.8-10.8)
[2022-02-10 15:09] LABS: RHEUMATOID FACTOR NEGATIVE (Negative)
[2022-02-11 19:06] LABS: ANTI-DNA (DS) AB QN 1 IU/mL (0-9); CENTROMERE B ANTIBODIES <0.2 AI (0.0-0.9); CHROMATIN ANTIBODIES <0.2 AI (0.0-0.9); JO-1 AB <0.2 AI (0.0-0.9); RIBOSOMAL P ANTIBODIES <0.2 AI (0.0-0.9); RNP ANTIBODIES <0.2 AI (0.0-0.9); SCLERODERMA-70 ANTIBODIES <0.2 AI (0.0-0.9); SJOGREN'S ANTI-SS-A <0.2 AI (0.0-0.9); SJOGREN'S ANTI-SS-B <0.2 AI (0.0-0.9); SMITH ANTIBODIES <0.2 AI (0.0-0.9); SMITH/RNP ANTIBODIES <0.2 AI (0.0-0.9)
== END 2022-02-10 13:41 | disposition home or self-care (01) ==
LOC: LAB 13:40
PROVIDERS: ATTEND Physical Medicine & Rehabilitation
DX: M05.79 Rheumatoid arthritis with rheumatoid factor of multiple sites without organ or systems involvement (principal)
CPT/HCPCS: 36415; 83516; 85025; 85651; 86140; 86225; 86235; 86430

== ENCOUNTER 2022-03-14 08:59 | Outpatient (CLI) | payer MEDICARE ==
[2022-03-14 09:15] LABS: BASOPHILS % (AUTO) 0.4 %; EOSINOPHILS # (AUTO) 0.2 10^3/uL (0.0-0.7); EOSINOPHILS % (AUTO) 1.9 %; HCT - HEMATOCRIT 44.1 % (42.0-52.0); HGB - HEMOGLOBIN 14.6 g/dL (14.0-18.0); LYMPHOCYTES # (AUTO) 1.5 10^3/uL (1.5-3.5); LYMPHOCYTES % (AUTO) 18.9 %; MEAN CORPUSCULAR HEMOGLOBIN 30.4 pg (27.0-31.0); MEAN CORPUSCULAR HGB CONC 33.1 g/dL (32.0-36.0); MEAN CORPUSCULAR VOLUME 91.7 fL (80.0-94.0); MEAN PLATELET VOLUME 9.9 fL (7.4-11.4); MONOCYTES # (AUTO) 0.7 10^3/uL (0.0-1.0); MONOCYTES % (AUTO) 8.2 %; NEUTROPHILS # (AUTO) 5.6 10^3/uL (1.5-6.6); NEUTROPHILS % (AUTO) 69.9 %; PLT - PLATELET COUNT 195 10^3/uL (130-450); RED BLOOD COUNT 4.81 10^6/uL (4.70-6.10); RED CELL DISTRIBUTION WIDTH 13.3 % (12.0-15.0); WHITE BLOOD COUNT 8.1 x10^3/uL (4.8-10.8)
[2022-03-14 09:36] LABS: ALBUMIN/GLOBULIN RATIO 1.3 (1.0-2.2); ALKALINE PHOSPHATASE 64 IU/L (42-121); ALT ALANINE AMINOTRANSFERASE 22 IU/L (10-60); AST ASPARTATE AMINOTRANSFERASE 20 IU/L (10-42); BUN - BLOOD UREA NITROGEN 22 mg/dL (6-20); CALCIUM 9.4 mg/dL (8.5-10.3); CARBON DIOXIDE - CO2 30 mmol/L (21-32); CHLORIDE 98 mmol/L (101-111); CHOL/HDL RATIO 3.5 (<5.0); CHOLESTEROL 165 mg/dL; GFR - MDRD 75 (>89); GLUCOSE 120 mg/dL (70-100); HDL CHOLESTEROL 47 mg/dL; LDL CHOLESTEROL,CALCULATED 88 mg/dL; LDL/HDL RATIO 1.9 (<3.6); POTASSIUM 4.2 mmol/L (3.5-5.0); SODIUM 137 mmol/L (135-145); TOTAL PROTEIN 7.2 g/dL (6.7-8.2); TRIGLYCERIDES 148 mg/dL; VLDL CHOLESTEROL 30 mg/dL
[2022-03-14 10:05] LABS: CRP - C-REACTIVE PROTEIN < 1.0 mg/dL (0-1.0)
[2022-03-14 10:25] LABS: ESTIMATED AVERAGE GLUCOSE 117 mg/dL (70-100); HEMOGLOBIN A1c% 5.7 % (4.27-6.07)
== END 2022-03-14 09:00 | disposition home or self-care (01) ==
LOC: LAB 08:59
PROVIDERS: ATTEND Nurse Practitioner
DX: I10 Essential (primary) hypertension (principal); E78.5 Hyperlipidemia, unspecified; R73.03 Prediabetes; R97.20 Elevated prostate specific antigen [PSA]; R79.82 Elevated C-reactive protein (CRP)
CPT/HCPCS: 36415; 80053; 80061; 83036; 83721; 84153; 85025; 86140

== ENCOUNTER 2022-07-18 09:13 | Outpatient (CLI) | payer MEDICARE ==
--- NOTE | 2022-07-19 10:26 | Mammography Report ---
MALE BILATERAL DIGITAL DIAGNOSTIC MAMMOGRAM 3D/2D: 07/18/2022 CLINICAL: Baseline exam. Palpable right breast lump. No prior exams were available for comparison. There is a benign asymmetry with an indistinct margin in the right breast sub-areolar depth central t o the nipple. No other significant masses, calcifications, or other findings are seen in either breast. IMPRESSION: BENIGN There is no mammographic evidence of malignancy. Right breast retroareolar gynecomastia is benign. Exam findings were conveyed to the patient. Patient is advised to monitor for significant change. Cli nical follow-up is recommended. This exam was interpreted at Station ID: [id number]. NOTE: For mammograms, a report in lay terms will be sent to the patient. Approximately 15% of breast malignancies will not be visualized mammographically. In the management of a palpable breast mass, a negative mammogram must not discourage biopsy of a clinically suspicious lesion. Electronically Signed By: Art Das M.D. slc/:07/18/2022 09:48:10 ACR BI-RADS Category 2: Benign Finding(s) 3342F PARENCHYMAL PATTERN: (F) - The breast(s) demonstrate(s) diffuse fatty replacement. BI-RADS CATEGORY: (2) - 2 Unspecified - other recall n/a LATERALITY: (B)
== END 2022-07-18 09:14 | disposition home or self-care (01) ==
LOC: DI 09:13
PROVIDERS: ATTEND Nurse Practitioner Family
DX: N62 Hypertrophy of breast (principal)

== ENCOUNTER 2022-08-15 13:27 | Outpatient (CLI) | payer MEDICARE ==
--- NOTE | 2022-08-16 09:39 | Ultrasound Report ---
LIMITED ULTRASOUND OF RIGHT BREAST: 08/15/2022 CLINICAL: Focal right breast pain. Palpable right breast lump. Palpable right breast lump. Comparison is made to exam dated: 07/18/2022 mammogram - [facility]. Color flow ultrasound of the right breast retroareolar was performed. Asencio scale images of the real- time examination were reviewed. There is small gynecomastia in the right breast that correlates with mammography, clinical concern, a nd reported tenderness. IMPRESSION: BENIGN There is no sonographic evidence of malignancy. Right gynecomastia. Recommend clinical follow up for persistent or worsening symptoms, or development of any clinically s uspicious findings. Findings and recommendations were conveyed to the patient during today's evaluation. This exam was interpreted at Station ID: [id number]. Electronically Signed By: Ernesto Graves M.D. aty/:08/15/2022 14:23:17 Ultrasound BI-RADS: 2 Benign BI-RADS CATEGORY: (2) - 2 Unspecified - other recall n/a LATERALITY: (B)
== END 2022-08-15 13:28 | disposition home or self-care (01) ==
LOC: DI 13:27
PROVIDERS: ATTEND Nurse Practitioner
DX: N62 Hypertrophy of breast (principal)

== ENCOUNTER 2022-10-19 12:51 | Outpatient (CLI) | payer MEDICARE, OTHER ==
--- NOTE | 2022-10-19 13:10 | Sleep Patient Instructions ---
Sleep Center Visit Summary - Patient Visit Information Reason for Visit: Annual follow up for CPAP therapy - Patient Instructions Additional Instructions: You will continue with CPAP therapy with pressure set at 10 cmH2O. A supply prescription will be updated with your DME We encourage you to continue to try to lose weight. Please follow up with the sleep care office in 1 year. - Clinic Information Contact: [facility] [address] [place] [address] [email or web address] T: [phone]
--- NOTE | 2022-10-19 13:16 | SLEEP CARE CONSULTATION ---
Information from patient questionnaire entered by Ayesha Lawson. I have reviewed and concur with the information entered by Ayesha Lawson. This document represents the service I personally performed and the decisions made by me, Guerita Meeks ARNP. History of Present Illness Service Date and Time: 10/19/2022 1251 Previous diagnosis: Severe, Obstructive Sleep Apnea-Hypopnea Syndrome AHI: 38.9 (in 2018) Reason for follow up: annual (LAST SEEN 08/2021) Equipment type: CPAP (TROTTER Dreamstation re-certified, NEED SD) Equipment obtained from: [employer] (getting supplies as needed) Mask style: Nasal Mask brand: Resmed (N20) Backup mask available: Yes (old mask) Last cushion change: 1 week Prior sleep studies: Yes Year and Where: 2017 - [facility] Type of Sleep Study: Polysomnography HPI additional information: LISA VEGAS was diagnosed to have severe, AHI 38.9, obstructive sleep apnea- hypopnea syndrome and returned today for CPAP therapy annual follow-up. Sleep Study - Results Type of Sleep Study: Polysomnography Prior sleep studies: Yes Year and Where: 2018 - [facility] CPAP Compliance Data - Data Reviewed with Patient Average duration of nightly device use: 6 hours 58 minutes Compliance rate %: 80.6 (166/180 days used) Current pressure setting (cmH2O): 10 Average residual AHI: 1.3 Average large leak: 5 mins 20 secs Subjective Missed days of use due to: reports: travel Patient concerns: reports: mask leak noise (just if turn in bed, adjusts). denies: aerophagia, mask discomfort, air blowing in eyes, condensation in mask/hose, nasal congestion, dry mouth, nose, throat, epistaxis Observed to snore while using device: No Current pressure setting perceived as: comfortable On therapy, patient: reports: sleeping better, awakening more refreshed, being more awake and alert during the day, more rested overall. denies: drowsiness while driving Initial [place] Sleepiness Scale score: 10 (in 2018) Current [place] Sleepiness Scale score: 0 (10/19/22) Allergies and Home Medications Known drug allergies: Yes (cefaclor) Drug allergies reviewed: Yes Home medication list reviewed: Yes (no changes) Allergy and home medication list: Allergies cefaclor [From Ceclor] Allergy (Verified 10/18/22 14:01) Rash Review of Systems Review of systems same as previous: Yes (no changes) Physical Exam Vital signs obtained and entered by: AYESHA Barrera MA Blood Pressure: 122/72 (LEFT ARM ) Cuff size: regular Heart Rate: 79 O2 Saturation: 87 (pt reports normal value on his O2) Height: 6 ft Weight: 300 lb Weight change since last visit: 5 lb gain Body Mass Index: 40.6 BMI Classification: Morbidly Obese Impression and Plan 1. Obstructive Sleep Apnea-Hypopnea Syndrome, severe, with good treatment compliance and good apnea control. On CPAP therapy, the patient has better sleep quality and is more rested overall. Patient got a recertified DreamStation that he states is working well. He continues to use a nasal pillows mask with good fit and no large air leaks. Patient has significant improvement of their sleep apnea and is satisfied with current CPAP therapy. Patient denies problems with oral dryness, nasal congestion, epistaxis, skin irritation or aerophagia. Patient's apnea severity and rationale for treatment to reduce apnea, improve sleep quality and reduce cardiovascular and cerebrovascular events was reviewed. I also reviewed the benefit of consistent device use of CPAP for hypertension. 2. Obesity, unspecified. Currently patients BMI is 40.6. Obesity increases the risk of apnea, CPAP pressure requirements and overall health risks especially cardiovascular and diabetes. Thus patient is advised to lose weight. * Continue CPAP pressure at 11 cmH2O * Update supplies * Notify me if snoring with mask or feeling that the pressure is too much or too little * Attempt to lose weight * Call this office if any problems using CPAP * Return for follow up in 1 year, or sooner if concerns arise Counseling Topics: Spare mask, Weight loss health impact Visit Type: In Office Time Spent with Patient (minutes): 20 Provider Statement: I spent 100% of the Face to Face Visit with the patient with greater than 50% spent counseling the patient and coordination of care.
[2022-10-19 13:17] VITALS: BP 122/72
== END 2022-10-19 12:52 | disposition home or self-care (01) ==
LOC: SC 12:51
PROVIDERS: ATTEND Nurse Practitioner Family
DX: G47.33 Obstructive sleep apnea (adult) (pediatric) (principal); E66.01 Morbid (severe) obesity due to excess calories; Z68.41 Body mass index [BMI] 40.0-44.9, adult
CPT/HCPCS: 99212; 99213

== ENCOUNTER 2023-02-02 10:57 | Outpatient (CLI) | payer MEDICARE, OTHER | END 2023-02-02 10:58 | disposition home or self-care (01) | LOC: NS 10:57 | PROVIDERS: ATTEND Internal Medicine | DX: Z71.3 Dietary counseling and surveillance (principal); R73.03 Prediabetes | CPT/HCPCS: 97802 ==

== ENCOUNTER 2023-06-17 10:28 | Emergency (ER) | payer MEDICARE ==
[2023-06-17 10:59] LABS: BASOPHILS % (AUTO) 0.2 %; EOSINOPHILS % (AUTO) 0.2 %; HCT - HEMATOCRIT 38.9 % (42.0-52.0); HGB - HEMOGLOBIN 12.6 g/dL (14.0-18.0); LYMPHOCYTES # (AUTO) 1.1 10^3/uL (1.5-3.5); LYMPHOCYTES % (AUTO) 10.3 %; MEAN CORPUSCULAR HEMOGLOBIN 30.4 pg (27.0-31.0); MEAN CORPUSCULAR HGB CONC 32.4 g/dL (32.0-36.0); MEAN CORPUSCULAR VOLUME 93.7 fL (80.0-94.0); MEAN PLATELET VOLUME 9.5 fL (7.4-11.4); MONOCYTES # (AUTO) 0.7 10^3/uL (0.0-1.0); MONOCYTES % (AUTO) 6.6 %; NEUTROPHILS # (AUTO) 8.7 10^3/uL (1.5-6.6); NEUTROPHILS % (AUTO) 79.4 %; PLT - PLATELET COUNT 261 10^3/uL (130-450); RED BLOOD COUNT 4.15 10^6/uL (4.70-6.10); RED CELL DISTRIBUTION WIDTH 12.7 % (12.0-15.0); WHITE BLOOD COUNT 10.9 x10^3/uL (4.8-10.8)
[2023-06-17 11:12] LABS: ALBUMIN 3.8 g/dL (3.2-5.5); ALBUMIN/GLOBULIN RATIO 1.4 (1.0-2.2); BILIRUBIN,TOTAL 0.4 mg/dL (0.2-1.0); POTASSIUM 3.9 mmol/L (3.5-4.5); TOTAL PROTEIN 6.6 g/dL (6.4-8.9)
[2023-06-17 13:14] LABS: BILIRUBIN,URINE NEGATIVE (NEGATIVE); GLUCOSE, URINE (UA) NEGATIVE (NEGATIVE); KETONES,URINE (UA) NEGATIVE (NEGATIVE); LEUKOCYTE ESTERASE, URINE NEGATIVE (NEGATIVE); NITRITE,URINE NEGATIVE (NEGATIVE); OCCULT BLOOD,URINE NEGATIVE (NEGATIVE); PH,URINE 7.5 PH (5.0-7.5); PROTEIN,URINE NEGATIVE (NEGATIVE); UROBILINOGEN,URINE 0.2 (NORMAL) E.U./dL (NORMAL)
[2023-06-17 13:16] LABS: AMORPHOUS SEDIMENT,UR Moderate /LPF; BACTERIA,URINE Few /HPF (None Seen); CLARITY,URINE CLOUDY (CLEAR); RBC,URINE None Seen /HPF (0-5); SQUAMOUS EPITHELIAL CELL,UR RARE Squamous (<= Few); WBC,URINE 0-3 /HPF (0-3)
--- NOTE | 2023-06-17 13:50 | ED Physician Documentation ---
PD HPI ABD PAIN - Stated complaint Stated Complaint: STOMACH PX/POST SURGERY - Chief complaint Chief Complaint: Abd Pain - History obtained from History obtained from: Patient - Additional information Additional information: He is about 2 weeks out from a rotator cuff repair on the left. For the last 3 days he has had diffuse abdominal pain, early satiety, nausea and vomiting. Has been moving his bowels and does not feel like he is constipated. Denies fevers. Has had a remote umbilical hernia repair, no other abdominal surgeries in the past. PD PAST MEDICAL HISTORY - Past Medical History Past Medical History: Yes Cardiovascular: Hypertension Respiratory: Asthma, Sleep apnea, CPAP use Endocrine/Autoimmune: None GI: None : Benign prostate hypertrophy HEENT: Chronic vision loss Psych: None Musculoskeletal: Chronic back pain Derm: None - Past Surgical History Past Surgical History: Yes General: Colonoscopy, Other Ortho: Spine surgery - Present Medications Home Medications: Ambulatory Orders Medication Instructions Recorded Confirmed Amitriptyline HCl 25 - 50 mg PO DAILY PM 01/11/18 06/17/23 Azelastine HCl [Astepro] 4 spray NS DAILY 01/11/18 06/17/23 Diclofenac Sodium [Diclo Gel] 1 applic TP TID 01/11/18 06/17/23 Duloxetine HCl [Cymbalta] 60 mg PO DAILY 01/11/18 06/17/23 Oxycodone HCl 10 mg PO Q4HR PRN 01/11/18 06/17/23 Pregabalin [Lyrica] 150 mg PO BID 01/11/18 06/17/23 Tamsulosin [Flomax] 0.4 mg PO DAILY PM 01/11/18 06/17/23 Zolpidem Tartrate [Ambien] 10 mg PO DAILY PM PRN 01/11/18 06/17/23 Albuterol Sulfate [Proair Hfa 1 - 2 puffs INH Q4H PRN 10/22/19 06/17/23 Inhaler] Budesonide/Formoterol Fumarate 1 puffs IH BID 10/22/19 06/17/23 [Symbicort 160-4.5 Mcg Inhaler] Finasteride 5 mg PO DAILY 10/22/19 06/17/23 Ipratropium [Atrovent] 1 puffs INH Q6H 10/22/19 06/17/23 Losartan [Cozaar] 50 mg PO DAILY 10/22/19 06/17/23 Pantoprazole [Protonix] 40 mg PO BID 10/22/19 06/17/23 Ondansetron Odt [Zofran] 4 mg TL Q6H PRN #10 tablet 06/17/23 traZODone [Desyrel] 100 mg PO HS 06/17/23 06/17/23 - Allergies Allergies/Adverse Reactions: Allergies Allergy/AdvReac Type Severity Reaction Status Date / Time cefaclor [From Ceclor] Allergy Rash Verified 06/17/23 10:41 - Social History Does the pt smoke?: No Smoking Status: Never smoker Does the pt drink ETOH?: Yes Does the pt have substance abuse?: No - Immunizations Immunizations are current?: Yes - POLST Patient has POLST: No PD ED PE NORMAL - Vitals Vital signs reviewed: Yes - General General: Alert and oriented X 3, No acute distress - Cardiac Cardiac: RRR, No murmur - Respiratory Respiratory: No respiratory distress, Clear bilaterally - Abdomen Abdomen: Other (Diminished bowel sounds with mild diffuse tenderness, no surgical signs.) - Derm Derm: Normal color, Warm and dry - Extremities Extremities: Other (left arm in immobilizer) - Neuro Neuro: Alert and oriented X 3 Results - Vitals Vitals: Vital Signs - 24 hr 06/17/23 06/17/23 06/17/23 10:38 14:11 16:18 Temperature 35.7 C L 36.7 C 36.4 C L Heart Rate 92 81 87 Respiratory 20 22 22 Rate Blood Pressure 187/95 H 174/96 H 170/98 H O2 Saturation 94 96 96 06/17/23 19:17 Temperature Heart Rate 84 Respiratory 18 Rate Blood Pressure 120/52 L O2 Saturation 95 Oxygen O2 Source Room air - Labs Labs: Laboratory Tests 06/17/23 06/17/23 06/17/23 10:43 10:54 10:54 WBC 10.9 H RBC 4.15 L Hgb 12.6 L Hct 38.9 L MCV 93.7 MCH 30.4 MCHC 32.4 RDW 12.7 Plt Count 261 MPV 9.5 Neut # (Auto) 8.7 H Lymph # (Auto) 1.1 L Real # (Auto) 0.7 Eos # (Auto) 0.0 Baso # (Auto) 0.0 Absolute Nucleated RBC 0.00 Nucleated RBC % 0.0 Sodium 136 Potassium 3.9 Chloride 94 L Carbon Dioxide 36 H Anion Gap 6.0 BUN 19 Creatinine 1.0 Estimated GFR (MDRD) 75 L Glucose 154 H Calcium 10.0 Total Bilirubin 0.4 AST 15 ALT 19 Alkaline Phosphatase 92 Total Protein 6.6 Albumin 3.8 Globulin 2.8 Albumin/Globulin Ratio 1.4 Lipase 36 Urine Color YELLOW Urine Clarity CLOUDY Urine pH 7.5 Ur Specific [place] 1.020 Urine Protein NEGATIVE Urine Glucose (UA) NEGATIVE Urine Ketones NEGATIVE Urine Occult Blood NEGATIVE Urine Nitrite NEGATIVE Urine Bilirubin NEGATIVE Urine Urobilinogen 0.2 (NORMAL) Ur Leukocyte Esterase NEGATIVE Urine RBC None Seen Urine WBC 0-3 Ur Squamous Epith Cells RARE Squamous Amorphous Sediment Moderate Urine Bacteria Few Ur Microscopic Review INDICATED Urine Culture Comments NOT INDICATED 06/17/23 17:53 WBC RBC Hgb Hct MCV MCH MCHC RDW Plt Count MPV Neut # (Auto) Lymph # (Auto) Real # (Auto) Eos # (Auto) Baso # (Auto) Absolute Nucleated RBC Nucleated RBC % Sodium 135 Potassium 3.6 Chloride 94 L Carbon Dioxide 33 H Anion Gap 8.0 BUN 20 Creatinine 1.0 Estimated GFR (MDRD) 75 L Glucose 106 H Calcium 10.1 Total Bilirubin 0.4 AST 16 ALT 21 Alkaline Phosphatase 96 Total Protein 7.0 Albumin 3.9 Globulin 3.1 Albumin/Globulin Ratio 1.3 Lipase 18 Urine Color Urine Clarity Urine pH Ur Specific [place] Urine Protein Urine Glucose (UA) Urine Ketones Urine Occult Blood Urine Nitrite Urine Bilirubin Urine Urobilinogen Ur Leukocyte Esterase Urine RBC Urine WBC Ur Squamous Epith Cells Amorphous Sediment Urine Bacteria Ur Microscopic Review Urine Culture Comments - Rads (name of study) abdomen pelvis CT severely limited but no abnormality in the pelvis. Relevant Findings:: Final report received, EMP independent interpretation of test PD Medical Decision Making - ED course ED course: 63-year-old gentleman presents with diffuse abdominal pain. He recently had a arm surgery and is on narcotics but does not feel constipated per se. Lab evaluation demonstrates mild leukocytosis and anemia, generally unremarkable CMP. He went over to CT, and our cardiology technician had quite a bit of trouble as the patient has a lot of orthopnea (a chronic issue), and could not lay on his back comfortably with the recent shoulder surgery. As such the images were pretty limited and really only got the lower abdomen. On reexamination at 3:10 PM he was much more tender in the right upper quadrant with a positive Winters sign so I added on an ultrasound to evaluate his gallbladder. RDMS reported to me that his gallbladder appeared normal but his common bile duct was dilated at 8 mm. This would be concerning for a CBD stone. His initial labs did not have any transaminitis or evidence of biliary obstruction but we will repeat this. Discussed with him that next step may be MRCP but he states he has a non-MRI compatible spinal stimulator and cannot have an MRI. I will recheck an ER abdominal panel to see if during the time he has been here his labs have changed with more evidence of biliary obstruction. He was less tender at this time (4:45 PM). Subsequently his liver enzymes were rechecked and without significant change, still normal. On recheck at 7:30 PM he was feeling much better. No longer tend er in the right upper quadrant. He was requesting discharge but given close return precautions. Departure - Departure Disposition: 01 Home, Self Care Clinical Impression: Abdominal pain Qualifiers: Abdominal location: generalized Qualified Code(s): R10.84 - Generalized abdominal pain Condition: Good Record reviewed to determine appropriate education?: Yes Prescriptions: Ondansetron Odt [Zofran] 4 mg TL Q6H PRN #10 tablet PRN Reason: Nausea / Vomiting Comments: You were seen today for abdominal pain. As discussed given the limitations of our ability to do a complete workup with an incomplete CT (pelvis only, but normal) given the inability to lie flat, and ultrasound nothing serious was found. Your white count was 10.9, your liver enzymes checked twice about 9 hours apart were normal with no elevation in bilirubin, AST, ALT, or alkaline phosphatase. Your common bile duct was borderline large at 8 mm. Would like you to see you again tomorrow if not better's, sooner if worse. Do follow-up with your primary care physician with consideration for GI consultation. I sent your prescription electronically to the [facility] pharmacy. Forms: PCP List
[2023-06-17] MEDS ORDERED: iohexoL-300 100 ML VIAL ONE (14:06)
[2023-06-17] MEDS: METOCLOPRAMIDE 10 MG/2 ML VIAL IVP STA (14:08)
[2023-06-17] MEDS: HYDROmorphone 1 MG/ML CARPUJECT IVP STA ×3 (14:08→19:19)
[2023-06-17] MEDS: KETOROLAC 15 MG/ML VIAL IVP STA (15:25)
[2023-06-17] MEDS: ONDANSETRON 4 MG/2 ML VIAL IVP STA ×3 (15:25→19:15)
--- NOTE | 2023-06-17 15:43 | CT Report ---
PROCEDURE: Abdomen/Pelvis W INDICATIONS: IV only, abd pain CONTRAST: 100ml omni 300 TECHNIQUE: Secondary to technical factors, only the anterior abdomen and pelvis were imaged.. Images were record ed and evaluated at appropriate window settings. Reformats: coronal and sagittal. For radiation dose reduction, the following was used: automated exposure control, adjustment of mA and/or kV according t o patient size. COMPARISON: 05/13/2020 FINDINGS: Image quality: The lower chest and the upper abdomen are not seen within the [id number] of this [facility]. Stomach, bowel and peritoneum: No bowel distension. No pathologic free fluid. A normal appendix is se en. Lymph nodes: No central or retroperitoneal adenopathy. Vessels: No infrarenal aortic aneurysm. PELVIS Reproductive organs: Unremarkable. Bladder: No abnormal wall thickening, accounting for underdistention. Pelvic lymph nodes: No pelvic adenopathy by size criteria. Bones: No aggressive osseous abnormality. Lower lumbar spine postoperative hardware can be seen. Other: Mild to moderate bilateral fat-containing inguinal hernias are seen. IMPRESSION: Within the [id number] of this study, no significant abnormality is seen. A cause of infection is s een. The study is limited with a limited [id number], focused mostly in the pelvis. Additional findings: Lower lumbar spine postoperative hardware Normal appendix Mild bilateral fat-containing inguinal hernias Reviewed by: Honorio Berg MD on 06/17/2023 2:42 PM [facility] Approved by: Honorio Berg MD on 06/17/2023 2:42 PM [facility] Station ID: [id number]
[2023-06-17] MEDS: iohexoL-300 100 ML VIAL IVP ONE (16:05)
[2023-06-17 18:42] LABS: ALBUMIN 3.9 g/dL (3.2-5.5); ALBUMIN/GLOBULIN RATIO 1.3 (1.0-2.2); BILIRUBIN,TOTAL 0.4 mg/dL (0.2-1.0); CALCIUM 10.1 mg/dL (8.5-10.3); POTASSIUM 3.6 mmol/L (3.5-4.5)
[2023-06-17 19:19] VITALS: BP 120/52; O2SAT 95
[2023-06-17] MEDS: ONDANSETRON ODT 4 MG Prepack 2 TL STA (19:45)
--- NOTE | 2023-06-17 22:46 | Ultrasound Report ---
PROCEDURE: Abdomen Limited INDICATIONS: RUQ pain TECHNIQUE: Real-time focused scanning was performed of the abdomen, with image documentation. COMPARISONS: CT abdomen pelvis 06/17/2023. FINDINGS: Liver: Normal in size. Mildly increased echogenicity. Gallbladder: Unremarkable. Biliary ducts: Intrahepatic bile ducts are non-dilated. Extrahepatic bile duct caliber measures 7 m m. Mildly dilated common bile duct at the pancreatic head measuring 7.5 mm. Normal is 6-7 mm or less in diameter, or 10 mm or less post-cholecystectomy. Pancreas: Visualized portions of the pancreas are otherwise sonographically normal. Right kidney: Normal in size and echotexture. Right kidney measures 8 cm long. No hydronephrosis or nephrolithiasis. No solid masses. No complex renal cystic lesions which require follow-up. Exophytic right renal simple cyst measuring 3.2 x 2.7 x 3.1 cm. IVC: Intrahepatic inferior vena cava is patent. Miscellaneous: No free abdominal fluid. IMPRESSION: 1.No gallstones. Gallbladder is normal in appearance. 2.Mildly dilated common bile duct at the pancreatic head measuring 7.5 mm, normal is 7 mm. This is li alison within normal physiologic limits. 3.Mild hepatomegaly. Reviewed by: Luis Gutiérrez MD on 06/17/2023 10:44 PM PST Approved by: Luis Gutiérrez MD on 06/17/2023 10:44 PM PST Station ID: [id number]
== END 2023-06-17 19:48 | disposition home or self-care (01) ==
LOC: ED 10:28
DX: R10.84 Generalized abdominal pain (principal); R06.01 Orthopnea; Z96.82 Presence of neurostimulator; Z98.890 Other specified postprocedural states
CPT/HCPCS: 36415; 74177; 76705; 80053; 81001; 83690; 85025; 96374; 96375; 96376; 99284; 99285; J1170; J2765; Q9967; 81003; 87086

== ENCOUNTER 2023-06-24 05:12 | Outpatient (CLI) | payer MEDICARE | END 2023-06-24 05:13 | disposition critical access hospital (66) | LOC: EMS 05:12 | DX: R55 Syncope and collapse (principal) | CPT/HCPCS: A0425; A0429 ==

== ENCOUNTER 2023-06-24 05:24 | Inpatient (IN) | payer MEDICARE ==
[2023-06-24] MEDS: SODIUM CHLORIDE 0.9% 1,000 ML IV STA (05:58)
--- NOTE | 2023-06-24 06:08 | ED Physician Documentation ---
PD HPI SYNCOPE - Stated complaint Stated Complaint: SYNCOPE - Chief complaint Chief Complaint: Neuro - History obtained from History obtained from: Patient, Family - History of Present Illness Witnessed: Witnessed - Additional information Additional information: Patient is a 63-year-old male presenting for evaluation of a syncopal episode that occurred just prior to arrival. He is 3 weeks postop from left shoulder arthroscopy with rotator cuff repair. He went to stand up to go to the bathroom and started feeling lightheaded and had a syncopal episode. Does not believe he hit his head and does not have a headache. reports that he was out for approximately 90 seconds. Patient states he recently has had a productive cough. He denies chest pain or shortness of air. He has recently been seen in the emergency department for abdominal pain but states that today he does not have any abdominal pain and actually states he feels better now than he has in some time. He was seen yesterday in the ER for this abdominal pain and states he did not have much to eat or drink yesterday evening upon returning home. Denies any numbness or weakness. Does not take a blood thinner. Review of Systems Constitutional: denies: Fever Cardiac: denies: Chest pain / pressure Respiratory: reports: Cough. denies: Dyspnea GI: denies: Abdominal Pain : denies: Dysuria Neurologic: reports: Syncope PD PAST MEDICAL HISTORY - Past Medical History Past Medical History: Yes Cardiovascular: Hypertension Respiratory: Asthma, Sleep apnea, CPAP use Endocrine/Autoimmune: None GI: None : Benign prostate hypertrophy HEENT: Chronic vision loss Psych: None Musculoskeletal: Chronic back pain Derm: None - Past Surgical History Past Surgical History: Yes General: Colonoscopy, Other Ortho: Spine surgery - Present Medications Home Medications: Ambulatory Orders Medication Instructions Recorded Confirmed Amitriptyline HCl 25 - 50 mg PO DAILY PM 01/11/18 06/24/23 Azelastine HCl [Astepro] 4 spray NS DAILY 01/11/18 06/24/23 Diclofenac Sodium [Diclo Gel] 1 applic TP TID 01/11/18 06/24/23 Duloxetine HCl [Cymbalta] 60 mg PO DAILY 01/11/18 06/24/23 Oxycodone HCl 10 mg PO Q4HR PRN 01/11/18 06/24/23 Pregabalin [Lyrica] 150 mg PO BID 01/11/18 06/24/23 Tamsulosin [Flomax] 0.4 mg PO DAILY PM 01/11/18 06/24/23 Zolpidem Tartrate [Ambien] 10 mg PO DAILY PM PRN 01/11/18 06/24/23 Albuterol Sulfate [Proair Hfa 1 - 2 puffs INH Q4H PRN 10/22/19 06/24/23 Inhaler] Budesonide/Formoterol Fumarate 1 puffs IH BID 10/22/19 06/24/23 [Symbicort 160-4.5 Mcg Inhaler] Finasteride 5 mg PO DAILY 10/22/19 06/24/23 Ipratropium [Atrovent] 1 puffs INH Q6H 10/22/19 06/24/23 Losartan [Cozaar] 50 mg PO DAILY 10/22/19 06/24/23 Pantoprazole [Protonix] 40 mg PO BID 10/22/19 06/24/23 traZODone [Desyrel] 100 mg PO HS 06/17/23 06/24/23 Amox/Clav 875/125 [Augmentin] 1 each PO BID #10 tablet 06/23/23 06/24/23 Ferrous Gluconate 324 mg PO DAILY #20 tablet 06/23/23 06/24/23 Lactulose 30 ml PO TID PRN #240 ml 06/23/23 06/24/23 Ondansetron Odt [Zofran] 4 mg TL Q6H PRN #10 tablet 06/23/23 06/24/23 Promethazine [Phenergan] 25 mg PO Q6H PRN #10 tab 06/23/23 06/24/23 - Allergies Allergies/Adverse Reactions: Allergies Allergy/AdvReac Type Severity Reaction Status Date / Time cefaclor [From [facility]] Allergy Rash Verified 06/24/23 05:38 - Social History Does the pt smoke?: No Smoking Status: Never smoker Does the pt drink ETOH?: Yes Does the pt have substance abuse?: No - Immunizations Immunizations are current?: Yes - POLST Patient has POLST: No PD ED PE NORMAL - General General: Alert and oriented X 3, No acute distress, Well developed/nourished - HEENT HEENT: Atraumatic, PERRL, EOMI, Moist mucous membranes, Pharynx benign - Neck Neck: Supple, no meningeal sign - Cardiac Cardiac: Strong equal pulses, Other (Tachycardic, regular rhythm) - Respiratory Respiratory: No respiratory distress, Clear bilaterally - Abdomen Abdomen: Normal bowel sounds, Soft, Non tender, Non distended - Rectal Rectal: Other (Chaperoned by [place] [employer]; Normal rectal tone, no blood on glove, minimal stool that appears to be yellow in color) - Derm Derm: Warm and dry - Extremities Extremities: No calf tenderness / cord, Other (Left arm in sling) - Neuro Neuro: Alert and oriented X 3, No motor deficit (Limited exam with left upper extremity as arm is in sling but good election watcher strength bilaterally, sensation intact bilaterally), No sensory deficit, Normal speech Eye Opening: Spontaneous Motor: Obeys Commands Verbal: Oriented GCS Score: 15 Results - Vitals Vitals: Vital Signs - 24 hr 06/24/23 06/24/23 06/24/23 05:28 06:03 06:30 Temperature 36.1 C L Heart Rate 120 H 122 H 118 H Respiratory 22 25 H 22 Rate Blood Pressure 123/73 108/53 L 116/71 O2 Saturation 92 97 98 If not protocol 2 2 : Oxygen Flow, liters/minute 06/24/23 06/24/23 06/24/23 07:00 07:30 08:00 Temperature Heart Rate 114 H 112 H 113 H Respiratory 22 18 14 Rate Blood Pressure 122/75 123/87 H 125/76 O2 Saturation 98 98 100 If not protocol 2 : Oxygen Flow, liters/minute Oxygen O2 Source Room air - EKG (time done) 0546 EKG releavant findings:: EKG personally interpreted by author of this note. Relevant findings are: Rate 118, sinus tachycardia, no STEMI, QTc 456 - Labs Labs: Microbiology 06/24/23 06:23 Occult Blood - Final Stool Laboratory Tests 06/24/23 06/24/23 06/24/23 05:38 05:38 06:14 WBC 19.4 H RBC 2.00 L Hgb 6.0 L* Hct 19.2 L* MCV 96.0 H MCH 30.0 MCHC 31.3 L RDW 13.7 Plt Count 440 MPV 10.0 Neut # (Auto) 15.0 H Lymph # (Auto) 2.5 [place] # (Auto) 1.3 H Eos # (Auto) 0.1 Baso # (Auto) 0.1 Absolute Nucleated RBC 0.00 Nucleated RBC % 0.0 Sodium 133 L Potassium 4.3 Chloride 96 L Carbon Dioxide 30 Anion Gap 7.0 BUN 74 H Creatinine 1.5 H Estimated GFR (MDRD) 47 L Glucose 207 H Lactic Acid Calcium 9.3 Total Bilirubin 0.3 AST 14 ALT 14 Alkaline Phosphatase 52 Troponin I High Sens 11.6 Total Protein 5.1 L Albumin 2.9 L Globulin 2.2 Albumin/Globulin Ratio 1.3 Lipase < 10 L Urine Color Urine Clarity Urine pH Ur Specific [place] Urine Protein Urine Glucose (UA) Urine Ketones Urine Occult Blood Urine Nitrite Urine Bilirubin Urine Urobilinogen Ur Leukocyte Esterase Ur Microscopic Review Urine Culture Comments Nasal Adenovirus (PCR) NOT DETECTED Nasal B. parapertussis DNA (PCR) NOT DETECTED Nasal Coronavir 229E PCR NOT DETECTED Nasal Coronavir HKU1 PCR NOT DETECTED Nasal Coronavir NL63 PCR NOT DETECTED Nasal Coronavir OC43 PCR NOT DETECTED Nasal Enterovir/Rhinovir PCR NOT DETECTED Nasal Influenza B PCR NOT DETECTED Nasal Influenza A PCR NOT DETECTED Nasal Parainfluen 1 PCR NOT DETECTED Nasal Parainfluen 2 PCR NOT DETECTED Nasal Parainfluen 3 PCR NOT DETECTED Nasal Parainfluen 4 PCR NOT DETECTED Nasal RSV (PCR) NOT DETECTED Nasal B.pertussis DNA PCR NOT DETECTED Nasal C.pneumoniae (PCR) NOT DETECTED Brent Human Metapneumo PCR NOT DETECTED Nasal M.pneumoniae (PCR) NOT DETECTED Nasal SARS-CoV-2 (PCR) NOT DETECTED Blood Type Blood Type Recheck Antibody Screen Crossmatch IS Only 06/24/23 06/24/23 06/24/23 06:20 07:00 07:00 WBC RBC Hgb Hct MCV MCH MCHC RDW Plt Count MPV Neut # (Auto) Lymph # (Auto) [place] # (Auto) Eos # (Auto) Baso # (Auto) Absolute Nucleated RBC Nucleated RBC % Sodium Potassium Chloride Carbon Dioxide Anion Gap BUN Creatinine Estimated GFR (MDRD) Glucose Lactic Acid 1.5 Calcium Total Bilirubin AST ALT Alkaline Phosphatase Troponin I High Sens Total Protein Albumin Globulin Albumin/Globulin Ratio Lipase Urine Color YELLOW Urine Clarity CLEAR Urine pH 5.5 Ur Specific [place] 1.015 Urine Protein NEGATIVE Urine Glucose (UA) NEGATIVE Urine Ketones TRACE Urine Occult Blood NEGATIVE Urine Nitrite NEGATIVE Urine Bilirubin NEGATIVE Urine Urobilinogen 0.2 (NORMAL) Ur Leukocyte Esterase NEGATIVE Ur Microscopic Review NOT INDICATED Urine Culture Comments NOT INDICATED Nasal Adenovirus (PCR) Nasal B. parapertussis DNA (PCR) Nasal Coronavir 229E PCR Nasal Coronavir HKU1 PCR Nasal Coronavir NL63 PCR Nasal Coronavir OC43 PCR Nasal Enterovir/Rhinovir PCR Nasal Influenza B PCR Nasal Influenza A PCR Nasal Parainfluen 1 PCR Nasal Parainfluen 2 PCR Nasal Parainfluen 3 PCR Nasal Parainfluen 4 PCR Nasal RSV (PCR) Nasal B.pertussis DNA PCR Nasal C.pneumoniae (PCR) Brent Human Metapneumo PCR Nasal M.pneumoniae (PCR) Nasal SARS-CoV-2 (PCR) Blood Type O NEGATIVE Blood Type Recheck Antibody Screen NEGATIVE Crossmatch IS Only See Detail 06/24/23 07:37 WBC RBC Hgb Hct MCV MCH MCHC RDW Plt Count MPV Neut # (Auto) Lymph # (Auto) [place] # (Auto) Eos # (Auto) Baso # (Auto) Absolute Nucleated RBC Nucleated RBC % Sodium Potassium Chloride Carbon Dioxide Anion Gap BUN Creatinine Estimated GFR (MDRD) Glucose Lactic Acid Calcium Total Bilirubin AST ALT Alkaline Phosphatase Troponin I High Sens Total Protein Albumin Globulin Albumin/Globulin Ratio Lipase Urine Color Urine Clarity Urine pH Ur Specific [place] Urine Protein Urine Glucose (UA) Urine Ketones Urine Occult Blood Urine Nitrite Urine Bilirubin Urine Urobilinogen Ur Leukocyte Esterase Ur Microscopic Review Urine Culture Comments Nasal Adenovirus (PCR) Nasal B. parapertussis DNA (PCR) Nasal Coronavir 229E PCR Nasal Coronavir HKU1 PCR Nasal Coronavir NL63 PCR Nasal Coronavir OC43 PCR Nasal Enterovir/Rhinovir PCR Nasal Influenza B PCR Nasal Influenza A PCR Nasal Parainfluen 1 PCR Nasal Parainfluen 2 PCR Nasal Parainfluen 3 PCR Nasal Parainfluen 4 PCR Nasal RSV (PCR) Nasal B.pertussis DNA PCR Nasal C.pneumoniae (PCR) Brent Human Metapneumo PCR Nasal M.pneumoniae (PCR) Nasal SARS-CoV-2 (PCR) Blood Type Blood Type Recheck O NEGATIVE Antibody Screen Crossmatch IS Only PD Medical Decision Making - ED course Complexity details: reviewed results, re-evaluated patient, d/w patient, d/w family ED course: Patient is a 63-year-old male with history of recent left shoulder surgery presenting for evaluation of a syncopal episode. He has been seen here twice in the last week with abdominal symptoms. Including yesterday. He is tachycardic. Reports feeling lightheaded prior to the syncopal episode. Denies head injury and denies a headache. Does not take a blood thinner. EKG is reviewed and demonstrates sinus tachycardia. No focal deficits to suggest a stroke. CBC, chemistries, troponin, urinalysis were obtained and reviewed. Labs are significant for anemia with hemoglobin of 6.0. Yesterday his hemoglobin was 8.6 which was a 4 g drop from labs from 1 week ago. Hemoccult yesterday was negative and again patient denies having recent bloody stools and actually states he has not had a bowel movement in about a week. I repeated a rectal exam and again stool guaiac is negative. BUN is 74 with a creatinine of 1.5 which are both elevated from prior labs. His abdominal exam is benign and it does not suggest intra-abdominal bleeding.CT scan of the abdomen pelvis obtained yesterday also does not show signs of intra-abdominal bleeding. There was thoughts that he could be having developing pneumonia so was started on Augmentin.White blood cell count at 19,000 which is slightly improved from yesterday of 25,000. No fevers.Reviewed patient's labs with him and his . He consents to blood transfusion. 714 - D/W Dr. Quan - he will consult and Possibly plan to scope the patient tomorrow. Agrees with plan for admission. 719 - Discussed with Dr. Zaragoza who will admit the patient for further management. On further history patient does report regular ETOH use but topped a few days ago. He has been using diclofenac for pain. He was prescribed protonix but stopped taking it as it was thought a cough he was having was related to GERD but it was not helping so he stopped. Reviewed this part of the history with Dr. Quan. He agrees with plan for PPI here which I have ordered. He will not plan to scope patient unless he worsens or does not improve on the PPI and with transfusions. - Critical Care Time(min): 32 Time Includes: Direct patient care, Review records, Reassess patient Departure - Departure Disposition: 66 [facility] DC/Xfer Clinical Impression: Syncope, Acute anemia, Elevated serum creatinine, Leukocytosis Condition: Serious Forms: PCP List
[2023-06-24 06:10] LABS: BASOPHILS # (AUTO) 0.1 10^3/uL (0.0-0.1); BASOPHILS % (AUTO) 0.3 %; EOSINOPHILS # (AUTO) 0.1 10^3/uL (0.0-0.7); EOSINOPHILS % (AUTO) 0.4 %; LYMPHOCYTES # (AUTO) 2.5 10^3/uL (1.5-3.5); LYMPHOCYTES % (AUTO) 12.9 %; MEAN CORPUSCULAR HGB CONC 31.3 g/dL (32.0-36.0); MONOCYTES # (AUTO) 1.3 10^3/uL (0.0-1.0); MONOCYTES % (AUTO) 6.9 %; NEUTROPHILS % (AUTO) 77.3 %; PLT - PLATELET COUNT 440 10^3/uL (130-450); RED CELL DISTRIBUTION WIDTH 13.7 % (12.0-15.0); WHITE BLOOD COUNT 19.4 x10^3/uL (4.8-10.8)
[2023-06-24 06:17] LABS: HCT - HEMATOCRIT 19.2 % (42.0-52.0)
[2023-06-24 06:33] LABS: LIPASE < 10 U/L (11-82); TROPONIN I HIGH SENSITIVITY 11.6 ng/L (2.3-19.7)
[2023-06-24 06:35] LABS: BILIRUBIN,URINE NEGATIVE (NEGATIVE); GLUCOSE, URINE (UA) NEGATIVE (NEGATIVE); KETONES,URINE (UA) TRACE mg/dL (NEGATIVE); LEUKOCYTE ESTERASE, URINE NEGATIVE (NEGATIVE); NITRITE,URINE NEGATIVE (NEGATIVE); OCCULT BLOOD,URINE NEGATIVE (NEGATIVE); PH,URINE 5.5 PH (5.0-7.5); PROTEIN,URINE NEGATIVE (NEGATIVE); UROBILINOGEN,URINE 0.2 (NORMAL) E.U./dL (NORMAL)
[2023-06-24] MEDS: ONDANSETRON ODT 4 MG TABLET TL STA (06:35)
[2023-06-24] MEDS: ONDANSETRON 4 MG/2 ML VIAL IVP STA ×2 (06:37→07:34)
[2023-06-24 06:44] LABS: ALBUMIN 2.9 g/dL (3.2-5.5); ALBUMIN/GLOBULIN RATIO 1.3 (1.0-2.2); ALKALINE PHOSPHATASE 52 IU/L (42-121); ALT ALANINE AMINOTRANSFERASE 14 IU/L (10-60); AST ASPARTATE AMINOTRANSFERASE 14 IU/L (10-42); BILIRUBIN,TOTAL 0.3 mg/dL (0.2-1.0); BUN - BLOOD UREA NITROGEN 74 mg/dL (6-20); CALCIUM 9.3 mg/dL (8.5-10.3); CARBON DIOXIDE - CO2 30 mmol/L (21-32); CHLORIDE 96 mmol/L (101-111); CREATININE 1.5 mg/dL (0.6-1.3); GFR - MDRD 47 (>89); POTASSIUM 4.3 mmol/L (3.5-4.5); SODIUM 133 mmol/L (135-145); TOTAL PROTEIN 5.1 g/dL (6.4-8.9)
[2023-06-24 06:49] LABS: GLUCOSE 207 mg/dL (74-104)
[2023-06-24 06:51] LABS: CLARITY,URINE CLEAR (CLEAR)
[2023-06-24] MEDS: PANTOPRAZOLE 40 MG VIAL IV STA (07:38)
[2023-06-24 07:59] LABS: B. PARAPERTUSSIS- RESP PCR PAN NOT DETECTED; B. PERTUSSIS- RESP PCR PANEL NOT DETECTED; C. PNEUMONIAE- RESP PCR PANEL NOT DETECTED; CORONAVIRUS 229E-RESP PCR NOT DETECTED; CORONAVIRUS HKU1-RESP PCR NOT DETECTED; CORONAVIRUS NL63-RESP PCR NOT DETECTED; CORONAVIRUS OC43-RESP PCR NOT DETECTED; HUMAN METAPNEUMOVIRUS NOT DETECTED; INFLUENZA A- RESP PCR PANEL NOT DETECTED; INFLUENZA B - RESP PCR PANEL NOT DETECTED; M. PNEUMONIAE- RESP PCR PANEL NOT DETECTED; PARAINFLUENZA VIRUS 1 NOT DETECTED; PARAINFLUENZA VIRUS 2 NOT DETECTED; PARAINFLUENZA VIRUS 3 NOT DETECTED; PARAINFLUENZA VIRUS 4 NOT DETECTED; RHINOVIRUS/ENTEROVIRUS NOT DETECTED; RSV- RESP PCR PANEL NOT DETECTED; SARS-CoV-2 -RESP PCR PANEL NOT DETECTED
--- NOTE | 2023-06-24 10:26 | XRAY Report ---
PROCEDURE: Chest 1V INDICATIONS: syncope TECHNIQUE: One view of the chest was acquired. COMPARISON: September 01, 2021 FINDINGS: Surgical changes and devices: None. Lungs and pleura: No pleural effusions or pneumothorax. Lungs are clear. Elevated right hemidiaph ragm Mediastinum: Mediastinal contours appear normal. Heart size is normal. Bones and chest wall: No suspicious bony lesions. Overlying soft tissues appear unremarkable. IMPRESSION: No acute cardiopulmonary findings. Elevated right hemidiaphragm. Note: This final report is concordant with the preliminary after-hours interpretation provided by [facility], [facility] Reviewed by: Karlo Jerry MD on 06/24/2023 9:24 AM [facility] Approved by: Karlo Jerry MD on 06/24/2023 9:24 AM [facility] Station ID: [id number]
--- NOTE | 2023-06-24 10:28 | XRAY Report ---
PROCEDURE: Shoulder 2+V LT INDICATIONS: syncope/recent surgery TECHNIQUE: 3 views of the shoulder were acquired. COMPARISON: None FINDINGS: Bones: No fractures or dislocations. No suspicious bony lesions. Visualized ribs appear intact. Soft tissues: No suspicious soft tissue calcifications. Incidental partially imaged epidural stimul ator leads noted IMPRESSION: Unremarkable shoulder radiographs Note: This final report is concordant with the preliminary after-hours interpretation provided by [facility], [facility] Reviewed by: Karlo Jerry MD on 06/24/2023 9:26 AM [facility] Approved by: Karlo Jerry MD on 06/24/2023 9:26 AM [facility] Station ID: [id number]
[2023-06-24] MEDS: SODIUM CHLORIDE FLUSH 0.9% 10 ML SYRINGE IVP SCH (10:44)
[2023-06-24] MEDS: oxyCODONE 5 MG TABLET PO PRN (10:54)
[2023-06-24] MEDS: MAGNESIUM CITRATE 296 ML BOTTLE PO ONE (10:54)
[2023-06-24] MEDS: polyethylene glycoL 3350 17 GM PACKET PO SCH (10:55)
[2023-06-24] MEDS ORDERED: ALBUTEROL NEB 2.5 MG/3 ML INH PRN (10:58)
--- NOTE | 2023-06-24 11:14 | HISTORY & PHYSICAL EXAMINATION ---
Chief Complaint - Chief Complaint Chief Complaint: syncope History of Present Illness - Admitted From Admitted From:: home via ED - History Obtained From Records Reviewed: yes History obtained from: patient and - History of Present Illness HPI Comment/Other: The patient is a 63-year-old male with complicated PMH including HTN, ROSE MARY on CPAP, BPH, chronic back pain with spinal cord stimulator BIBA from home for syncope. The at bedside provides additional history. He had left shoulder rotator cuff repair and arthroscopy in mid-May, and after that had a viral respiratory illness that lasted about 7 days. He has been in the ED now 3 times in the past couple weeks for abdominal pain. He states he has not felt well with abdominal pain, nausea, early satiety for the past 10+ days. He has not had a BM in ~10 days and has had no luck with home laxatives. This morning he got up and he immediately felt lightheaded and then awoke on the floor. As he has not been feeling well and sleeping in the recliner, his was sleeping on the couch and heard him fall, immediately went over to him and his eyes were open but he was not responsive for about 90 seconds. She called EMS who brought patient to ED. He did not hit his head. He has never had syncope in the past. In ED, he was noted to have H/H 6/19.2, Cr 1.5, plt 440, wbc 19.4. History - Past Medical History Cardiovascular: reports: Hypertension Respiratory: reports: Asthma, Sleep apnea, CPAP use Endocrine/Autoimmune: reports: None GI: reports: None : reports: Benign prostate hypertrophy HEENT: reports: Chronic vision loss Psych: reports: None Musculoskeletal: reports: Chronic back pain Derm: reports: None MRSA Hx?: No - Past Surgical History General: reports: Colonoscopy Ortho: reports: Spine surgery, Other (spinal nerve stimulator) - Family & Social History Family History Comment/Other: oldest son with Hodgkins lymphoma Living arrangement: At home Living Situation: With spouse/s.o. - Substance History Use: Uses substance without health or social issues: Alcohol, Opioid Use Issues: uncomplicated Abuse: Recurrent use of substance despite neg consequences: Alcohol Dependence: Experiences withdrawal or developed tolerances: Alcohol - POLST Patient has POLST: No POLST Status: Full Code Meds/Allgy - Home Medications Home Medications: Ambulatory Orders Medication Instructions Recorded Confirmed Amitriptyline HCl 25 - 50 mg PO DAILY PM 01/11/18 06/24/23 Azelastine HCl [Astepro] 4 spray NS QPM 01/11/18 06/24/23 Duloxetine HCl [Cymbalta] 60 mg PO DAILY 01/11/18 06/24/23 Oxycodone HCl 10 mg PO Q4HR PRN 01/11/18 06/24/23 Pregabalin [Lyrica] 150 mg PO BID 01/11/18 06/24/23 Tamsulosin [Flomax] 0.4 mg PO DAILY PM 01/11/18 06/24/23 Zolpidem Tartrate [Ambien] 10 mg PO DAILY PM PRN 01/11/18 06/24/23 Albuterol Sulfate [Proair Hfa 1 - 2 puffs INH Q4H PRN 10/22/19 06/24/23 Inhaler] Budesonide/Formoterol Fumarate 1 puffs IH DAILY 10/22/19 06/24/23 [Symbicort 160-4.5 Mcg Inhaler] Losartan [Cozaar] 50 mg PO DAILY 10/22/19 06/24/23 traZODone [Desyrel] 100 mg PO HS 06/17/23 06/24/[address] [Voltaren] 75 mg PO BIDWM 06/24/23 06/24/23 - Allergies Allergies/Adverse Reactions: Allergies Allergy/AdvReac Type Severity Reaction Status Date / Time cefaclor [From [facility]] Allergy Rash Verified 06/24/23 05:38 Review of Systems - Constitutional Constitutional: reports: Fatigue (no persistent bloody stools or melena), Malaise, Weakness, Poor appetite - Cardiovascular Cariovascular: reports: Lightheadedness - Respiratory Respiratory: reports: Cough - Gastrointestinal Gastrointestinal: reports: Abdominal pain, Constipation, Nausea, Poor appetite - Musculoskeletal Musculoskeletal: reports: Back pain, Other (pain to left shoulder post surgery) - Neurological Neurological: reports: General weakness - Hematologic/Lymphatic Hematologic/Lymphatic: reports: Anemia - All Other Systems All Other Systems: reports: Reviewed and negative Exam - Vital Signs Reviewed Vital Signs: Yes Vital Signs: Vital Signs x48h Temp Pulse Pulse Resp BP BP BP 06/24/23 10:10 37.5 C 115 H 18 127/93 H 06/24/23 09:37 06/24/23 09:00 37.5 C 113 H 113 H 16 124/58 L 124/58 L 06/24/23 08:40 37.2 C 115 H 15 127/86 H 06/24/23 08:30 114 H 14 124/87 H 06/24/23 08:00 113 H 14 125/76 06/24/23 07:30 112 H 18 123/87 H 06/24/23 07:00 114 H 22 122/75 06/24/23 06:30 118 H 22 116/71 06/24/23 06:03 122 H 25 H 108/53 L 06/24/23 05:28 36.1 C L 120 H 22 123/73 Pulse Ox O2 Flow Rate 06/24/23 10:10 96 1 06/24/23 09:37 1 06/24/23 09:00 98 1 06/24/23 08:40 98 1 06/24/23 08:30 99 06/24/23 08:00 100 06/24/23 07:30 98 06/24/23 07:00 98 2 06/24/23 06:30 98 2 06/24/23 06:03 97 2 06/24/23 05:28 92 - Physical Exam General Appearance: positive: Alert, Mild distress Eyes Bilateral: positive: Normal inspection Respiratory: positive: Chest non-tender, No respiratory distress, Breath sounds nml Cardiovascular: positive: Regular rate & rhythm, No murmur, No gallop Peripheral Pulses: positive: 1+ Abdomen: positive: Other (generalized discomfort, mild distention, no peritoneal signs, hypoactive bowel sounds) Skin: positive: No rash, Warm, Dry, Pallor Extremities: positive: Other (left shoulder in sling but intact sensation and motion to fingers) Neurologic/Psychiatric: positive: Oriented x3, Sensation nml, Weakness Comments/Other: LUE in sling, intact sensation to fingers Conclusion/Plan - Problem List (1) Acute anemia Conclusion/Plan: Hgb 6.0 on admission, was 8.6 on 06/22, was 12.6 on 06/17. Iron and Tsat also low. S/p recent shoulder surgery in mid-May. Daily EtOH use. Suspect cause is multifactorial due to inflammatory block from recent surgery, iron deficiency. Lipase and CT A/P neg for cause. Initial consideration was acute GI bleed; no melena or hematochezia, not on blood thinners, no signs of bleeding, fecal occult blood neg. Could have a bleed somewhere in his GI tract that has an atypical presentation due to his severe constipation making the bleed less symptomatic. No new medications. He is at risk for UGIB being on NSAIDs at home and in setting of daily EtOH use. Does have an elevated BUN/Cr ratio which would be more indicative of GIB. Plan: transfuse PRBCs, give 1 unit and recheck H/H, if H/H does not rise as e xpected, give more blood Contacted Dr. Quan who will see pt tomorrow for surgery consult Transfuse if hgb<7 Monitor H/H Monitor stools for any melena or bleeding Could consider sending retic count, LDH, but more extensive labs to delineate cause are not available at this facility and as above more consistent with GIB Normal total bili makes hemolysis unlikely Will likely need outpatient GI and/or hematology referral NO NSAIDS Needs to stop drinking EtOH (2) UGIB (upper gastrointestinal bleed) Conclusion/Plan: As above (3) Iron deficiency Conclusion/Plan: Labs show iron low at 43, Tsat low at 14. Contributing to (but not main cause of) anemia. Plan: Receiving PRBCs Consider IV iron prior to DC Likely will need PO iron at DC (4) Abdominal pain Conclusion/Plan: with nausea and early satiety, suspect due to severe constipation, worsened by opiate use. CT A/P showed large stool burden. Plan: bowel protocol, jump to mag citrate as other meds have not been working Consider enema and/or golytely if no success No concern for other GI pathology on exam or imaging Qualifiers: Abdominal location: generalized Qualified Code(s): R10.84 - Generalized abdominal pain (5) Constipation Conclusion/Plan: Chronic but worse the past couple weeks, has not had BM in ~10 days. No response to Miralax and senna at home. CT A/P showed large stool burden but no signs of perforation. Plan: As above Qualifiers: Constipation type: slow transit constipation Qualified Code(s): K59.01 - Slow transit constipation (6) Syncope Conclusion/Plan: Suspect due to hypovolemia in setting of anemia. Also uses EtOH and opiates which contribute. Plan: treat anemia and monitor Qualifiers: Syncope type: unspecified Qualified Code(s): R55 - Syncope and collapse (7) Leukocytosis Conclusion/Plan: No definite signs of infection. WBC 19.4 on admit and mention of possible LLL small infiltrate on CT A/P, but CXR clear, afebrile, no hypoxia, doubt acute infection. Leukocytosis could be reactive in setting of GIB. Plan: no indication for antibiotics at present Monitor WBC count Qualifiers: Leukocytosis type: unspecified Qualified Code(s): D72.829 - Elevated white blood cell count, unspecified (8) Postoperative pain, acute, shoulder Conclusion/Plan: s/p L shoulder rotator cuff surgery ~mid-May. In sling. Has been taking oxycodone 10 mg (12 tabs per day) post-op for pain. Site without signs of infection. Plan: Continue home oxycodone prn pain (9) Chronic pain Conclusion/Plan: H/o lumbar fusion and radiculopathy with implanted spinal nerve stimulator. On multiple medications chronically for pain. Plan: continue home medications including pregabalin, amitriptyline, Cymbalta Do NOT restart NSAIDs at DC due to GIB Recommend avoiding IV opiates to treat chronic pain Qualifiers: Chronic pain type: chronic pain syndrome Qualified Code(s): G89.4 - Chronic pain syndrome (10) Alcohol use disorder Conclusion/Plan: Admits to excessive EtOH use, drinks on average 4 cocktails per night. Has never had EtOH withdrawal. Plan: monitor for any s/s withdrawal, if any develop, start CIWA protocol Recommend he stop ALL EtOH due to GIB (11) Hypertension Conclusion/Plan: BP stable. Plan: Continue home losartan Qualifiers: Hypertension type: primary hypertension Qualified Code(s): I10 - Essential (primary) hypertension (12) ROSE MARY on CPAP Conclusion/Plan: Stable. Plan: use home CPAP with home settings, if unavailable may need O2 with sleep (13) Asthma Conclusion/Plan: Stable. No wheezing. Plan: continue albuterol prn Qualifiers: Asthma severity: unspecified severity Asthma persistence: unspecified Asthma complication type: uncomplicated Qualified Code(s): J45.909 - Unspecified asthma, uncomplicated - Lab Results Lab results reviewed: Yes Fish Bones: 06/24/23 17:29 06/24/23 05:38 - Diagnostic Imaging Results Diagnostic Imaging Results: positive: Final report reviewed Diagnostic Imaging Results Comments: 06/17: abd US: mildly dilated CBD near pancreas, could be normal variant 06/22: CT A/P: possible edema near pancreas, small infiltrate in LLL. 06/23: CXR neg for infiltrate. iron 43 (low), Tsat 14 (low), lipase neg. - EKG Results EKG Findings: No recent EKG noted Core Measures - Anticipated LOS I expect patient to be DC'd or transferred within 96 hours.: Yes - DVT/VTE - Prophylaxis VTE/DVT Device ordered at admit?: No Not Ordered - Low Risk: Low Risk VTE/DVT Prophylaxis med ordered at admit?: No Not Ordered - Medical Reason: Contraindicated
--- NOTE | 2023-06-24 11:29 | PHARMACY PROGRESS NOTE ---
- Best Possible Medication History Admit Date and Time: 06/24/23 0821 Processed by: Nursing Medications reviewed in ED?: Yes Medication History completed: Yes Patient Interview: Completed Secondary Source(s): Pharmacy records, Insurance records As the person ultimately responsible for medication therapy, providers are able to order a medication from an existing home medication list in [facility] via the "Reconcile Routine" prior to Confirmation of that medication by shipping support. Such practice is discouraged except when the physician, in their clinical judgment, deems that a medical need exists for a medication without regard to previous use.
[2023-06-24] MEDS: PANTOPRAZOLE 40 MG TABLET PO SCH (12:25)
[2023-06-24 12:26] LABS: BASOPHILS % (AUTO) 0.3 %; EOSINOPHILS % (AUTO) 0.1 %; HCT - HEMATOCRIT 22.7 % (42.0-52.0); HGB - HEMOGLOBIN 7.2 g/dL (14.0-18.0); LYMPHOCYTES % (AUTO) 7.2 %; MEAN CORPUSCULAR HEMOGLOBIN 29.9 pg (27.0-31.0); MEAN CORPUSCULAR HGB CONC 31.7 g/dL (32.0-36.0); MEAN CORPUSCULAR VOLUME 94.2 fL (80.0-94.0); MEAN PLATELET VOLUME 9.7 fL (7.4-11.4); MONOCYTES % (AUTO) 6.9 %; NEUTROPHILS % (AUTO) 82.9 %; PLT - PLATELET COUNT 422 10^3/uL (130-450); RED BLOOD COUNT 2.41 10^6/uL (4.70-6.10); RED CELL DISTRIBUTION WIDTH 14.4 % (12.0-15.0); SLIDE REVIEW? Indicated; WHITE BLOOD COUNT 19.7 x10^3/uL (4.8-10.8)
[2023-06-24 12:27] LABS: ABNORMAL LYMPHS % (MANUAL) 0 %
[2023-06-24 13:00] LABS: BAND NEUTROPHILS % (MANUAL) 1 %; DIFFERENTIAL COMMENT MANUAL DIFFERENTIAL; LYMPHOCYTES # (MANUAL) 2.4 10^3/uL (1.5-3.5); LYMPHOCYTES % (MANUAL) 12 %; METAMYELOCYTES % (MANUAL) 2 %; MONOCYTES # (MANUAL) 0.2 10^3/uL (0.0-1.0); MYELOCYTES % (MANUAL) 2 %; NEUTROPHILS # (MANUAL) 16.4 10^3/uL (1.5-6.6)
[2023-06-24 13:01] LABS: PLATELET ESTIMATE, MANUAL NORMAL (130-450,000) (NORMAL); WBC MORPHOLOGY (MULTIPLE) NORMAL APPEARANCE (NORMAL)
[2023-06-24 13:02] LABS: PLATELET MORPHOLOGY NORMAL APP (NORMAL)
[2023-06-24] MEDS: PANTOPRAZOLE 80 MG in SODIUM CHLORIDE 0.9% 100ML 100 ML IV SCH (16:35)
[2023-06-24 17:33] LABS: HCT - HEMATOCRIT 22.8 % (42.0-52.0); HGB - HEMOGLOBIN 7.5 g/dL (14.0-18.0)
[2023-06-24 18:44] LABS: FECAL OCCULT BLOOD (FIT) POSITIVE (NEGATIVE)
--- NOTE | 2023-06-24 20:15 | CONSULTATION NOTE ---
Referring Provider Name of Referring Provider:: Dr. Eleazar Zaragoza Consult Date: 06/24/23 Chief Complaint - Chief Complaint Chief Complaint: Unexplained anemia in the setting of NSAID and alcohol use History of Present Illness - Admitted From Admitted From:: ED - History Obtained From Records Reviewed: Yes going back to 2018 History obtained from: Patient and chart Exam Limitations: None - History of Present Illness HPI Comment/Other: This is a very pleasant 63 year old male evaluated in Room 2211 of [facility] Med-Surg unit at the request of Dr. Zaragoza to help elucidate the cause of his unexplained anemia. He has a complicated PMH including HTN, ROSE MARY on CPAP, BPH, chronic back pain with spinal cord stimulator BIBA from home for syncope. He had left shoulder rotator cuff repair and arthroscopy in mid- May, and after that had a viral respiratory illness that lasted about 7 days. He has been in the ED now 3 times in the past few days for abdominal pain. He noted abdominal pain, nausea, early satiety for the past 10+ days. He has had several bowel movements since his admission. In the past few days he has eaten a bowl of chili and several pudding cups. Long story short he fainted this morning fter arising with an approximately 90 seconds of unresponsiveness. This, understandably, resulted in an ambulance being called and transportation to our hospital. Please note that the patient was evaluated with his in the room with him. I asked him if he wished to have a colonoscopy AND the EGD and even though the patient stated that he was due for the colonoscopy he wished to wait to have that done. He states that constipation is a new symptom for him (only presenting in the last few weeks). He denies melena, hematochezia or hematemesis. Of note, to my understanding PPI's were recommended but the patient has not been taking them. History - Past Medical History Cardiovascular: reports: Hypertension Respiratory: reports: Asthma, Sleep apnea, CPAP use Endocrine/Autoimmune: reports: None GI: reports: None : reports: Benign prostate hypertrophy HEENT: reports: Chronic vision loss Psych: reports: None Musculoskeletal: reports: Chronic back pain Derm: reports: None MRSA Hx?: No - Past Surgical History General: reports: Colonoscopy Ortho: reports: Spine surgery, Other (spinal nerve stimulator) - Family & Social History Family History Comment/Other: oldest son with Hodgkins lymphoma Living arrangement: At home Living Situation: With spouse/s.o. - Substance History Use: Uses substance without health or social issues: Alcohol, Opioid Use Issues: uncomplicated Abuse: Recurrent use of substance despite neg consequences: Alcohol Dependence: Experiences withdrawal or developed tolerances: Alcohol - POLST Patient has POLST: No POLST Status: Full Code Meds/Allgy - Home Medications Home Medications: Ambulatory Orders Medication Instructions Recorded Confirmed Amitriptyline HCl 25 - 50 mg PO DAILY PM 01/11/18 06/24/23 Azelastine HCl [Astepro] 4 spray NS QPM 01/11/18 06/24/23 Duloxetine HCl [Cymbalta] 60 mg PO DAILY 01/11/18 06/24/23 Oxycodone HCl 10 mg PO Q4HR PRN 01/11/18 06/24/23 Pregabalin [Lyrica] 150 mg PO BID 01/11/18 06/24/23 Tamsulosin [Flomax] 0.4 mg PO DAILY PM 01/11/18 06/24/23 Zolpidem Tartrate [Ambien] 10 mg PO DAILY PM PRN 01/11/18 06/24/23 Albuterol Sulfate [Proair Hfa 1 - 2 puffs INH Q4H PRN 10/22/19 06/24/23 Inhaler] Budesonide/Formoterol Fumarate 1 puffs IH DAILY 10/22/19 06/24/23 [Symbicort 160-4.5 Mcg Inhaler] Losartan [Cozaar] 50 mg PO DAILY 10/22/19 06/24/23 traZODone [Desyrel] 100 mg PO HS 06/17/23 06/24/[address] [Voltaren] 75 mg PO BIDWM 06/24/23 06/24/23 - Allergies Allergies/Adverse Reactions: Allergies Allergy/AdvReac Type Severity Reaction Status Date / Time cefaclor [From [facility]] Allergy Rash Verified 06/24/23 05:38 Review of Systems - Constitutional Constitutional: reports: Fatigue, Poor appetite. denies: Fever, Chills - Eyes Eyes: denies: Pain - Ears, Nose & Throat Ears, Nose & Throat: denies: Ear pain - Cardiovascular Cariovascular: denies: Irregular heart rate, Chest pain - Respiratory Respiratory: reports: Cough - Gastrointestinal Gastrointestinal: reports: Abdominal pain (Biased to LEFT.) - Musculoskeletal Musculoskeletal: reports: Muscle pain, Back pain, Stiffness, Limited range of motion - Integumentary Integumentary: denies: Rash - Neurological Neurological: reports: General weakness, Focal weakness - Hematologic/Lymphatic Hematologic/Lymphatic: reports: Anemia Exam - Vital Signs Reviewed Vital Signs: Yes Vital Signs: Vital Signs x48h Temp Pulse Pulse Resp BP Pulse Ox O2 Flow Rate 06/24/23 16:42 36.4 C L 107 H 18 168/95 H 92 1 06/24/23 15:40 36.5 C 105 H 24 145/95 H 94 0.5 06/24/23 13:46 36.4 C L 127 H 127 H 18 142/97 H 96 1 06/24/23 13:30 36.4 C L 110 H 18 144/91 H 94 1 06/24/23 13:25 36.4 C L 110 H 18 144/91 H 94 1 - Physical Exam General Appearance: positive: No acute distress Eyes Bilateral: positive: No lid inflammation, Conjunctivae nml, No scleral icterus ENT: positive: Dry mucous membranes Neck: positive: Trachea midline Respiratory: positive: Chest non-tender, No respiratory distress, Breath sounds nml (But diminished.) Cardiovascular: positive: Regular rate & rhythm, No murmur Abdomen: positive: Nml bowel sounds, Tenderness (Very very mildly tender on LEFT side - no peritoneal findings.). negative: Guarding, Rebound Skin: positive: Color nml, Warm, Dry Extremities: positive: Nml appearance Neurologic/Psychiatric: positive: Mood/affect nml Conclusion and Plan - Lab Results Microbiology Results 06/24/23 06:23 Stool Occult Blood - Final Laboratory Results 06/24/23 17:29: Hgb 7.5 L, Hct 22.8 L 06/24/23 17:23: Stl Occult Blood (IFOB) POSITIVE A 06/24/23 12:17: WBC 19.7 H, RBC 2.41 L, Hgb 7.2 L, Hct 22.7 L, MCV 94.2 H, MCH 29.9, MCHC 31.7 L, RDW 14.4, Plt Count 422, MPV 9.7, Neut # (Auto) Not Reportable, Lymph # (Auto) Not Reportable, Yell # (Auto) Not Reportable, Eos # (Auto) Not Reportable, Baso # (Auto) Not Reportable, Absolute Nucleated RBC Not Reportable, Total Counted 100, Band Neuts % (Manual) 1, Abnorm Lymph % (Manual) 0, Metamyelocytes % 2 H, Myelocytes % 2 H, Nucleated RBC % Not Reportable, Neutrophils # (Manual) 16.4 H, Lymphocytes # (Manual) 2.4, Monocytes # (Manual) 0.2, Eosinophils # (Manual) 0.0, Basophils # (Manual) 0.0, Differential Comment MANUAL DIFFERENTIAL, Manual Slide Review Indicated, WBC Morphology NORMAL APPEARANCE, Platelet Estimate NORMAL (130-450,000), Platelet Morphology NORMAL MIGUEL, RBC Morph Micro Appear 1+ ANISOCYTOSIS 06/24/23 07:37: Blood Type Recheck O NEGATIVE 06/24/23 07:00: Lactic Acid 1.5 06/24/23 07:00: Blood Type O NEGATIVE, Antibody Screen NEGATIVE, Crossmatch IS Only See Detail 06/24/23 06:20: Urine Color YELLOW, Urine Clarity CLEAR, Urine pH 5.5, Ur Specific Industry 1.015, Urine Protein NEGATIVE, Urine Glucose (UA) NEGATIVE, Urine Ketones TRACE, Urine Occult Blood NEGATIVE, Urine Nitrite NEGATIVE, Urine Bilirubin NEGATIVE, Urine Urobilinogen 0.2 (NORMAL), Ur Leukocyte Esterase NEGATIVE, Ur Microscopic Review NOT INDICATED, Urine Culture Comments NOT INDICATED 06/24/23 06:14: Nasal Adenovirus (PCR) NOT DETECTED, Nasal B. parapertussis DNA (PCR) NOT DETECTED, Nasal Coronavir 229E PCR NOT DETECTED, Nasal Coronavir HKU1 PCR NOT DETECTED, Nasal Coronavir NL63 PCR NOT DETECTED, Nasal Coronavir OC43 PCR NOT DETECTED, Nasal Enterovir/Rhinovir PCR NOT DETECTED, Nasal Influenza B PCR NOT DETECTED, Nasal Influenza A PCR NOT DETECTED, Nasal Parainfluen 1 PCR NOT DETECTED, Nasal Parainfluen 2 PCR NOT DETECTED, Nasal Parainfluen 3 PCR NOT DETECTED, Nasal Parainfluen 4 PCR NOT DETECTED, Nasal RSV (PCR) NOT DETECTED, Nasal B.pertussis DNA PCR NOT DETECTED, Nasal C.pneumoniae (PCR) NOT DETECTED, Brent Human Metapneumo PCR NOT DETECTED, Nasal M.pneumoniae (PCR) NOT DETECTED, Nasal SARS-CoV-2 (PCR) NOT DETECTED 06/24/23 05:38: Sodium 133 L, Potassium 4.3, Chloride 96 L, Carbon Dioxide 30, Anion Gap 7.0, BUN 74 H, Creatinine 1.5 H, Estimated GFR (MDRD) 47 L, Glucose 207 H, Calcium 9.3, Total Bilirubin 0.3, AST 14, ALT 14, Alkaline Phosphatase 52, Troponin I High Sens 11.6, Total Protein 5.1 L, Albumin 2.9 L, Globulin 2.2, Albumin/Globulin Ratio 1.3, Lipase < 10 L 06/24/23 05:38: WBC 19.4 H, RBC 2.00 L, Hgb 6.0 L*, Hct 19.2 L*, MCV 96.0 H, MCH 30.0, MCHC 31.3 L, RDW 13.7, Plt Count 440, MPV 10.0, Neut # (Auto) 15.0 H, Lymph # (Auto) 2.5, Yell # (Auto) 1.3 H, Eos # (Auto) 0.1, Baso # (Auto) 0.1, Absolute Nucleated RBC 0.00, Nucleated RBC % 0.0 - Diagnostic Imaging Results Diagnostic Imaging Results: positive: Final report reviewed, Read independently Diagnostic Imaging Results Comments: Reviewed the abdomen and pelvis CT and reading dated 06-23-2023 and nothing seen to suggest blood loss. - Diagnosis Diagnosis: Anemia of unknown etiology but UGIB likely - Consultation Note Consultation Note: The patient has been taking diclofenac for years with known potential side effects including ulcers, effects on hypertension, effects on heart, liver or renal function or effects on inflammatory bowel disease. With these precautions in mind. we discussed the use of PPIs and that they are recommended to protect against the possibility of ulcer formation. If there is alternative medication to dicofenac that would be appropriate, I would recommend a trial. - Plan Plan: EGD tomorrow. The indications, procedure, alternatives including no procedure, and possible complications including but not limited to perforation, bleeding with all of its risks, and were fully explained to the patient and his and all questions answered. Verbal and written consent was obtained. NPO after 0400. Clears without red fluid tonight. If this is unrevealing consider colonoscopy and if that is unrevealing consider a pill endoscopy to evaluate the small bowel. All of this was discussed with the patient and his and they vocalized an understanding. I have asked them to let us know if there is any way to make his stay at [facility] better. They stated that they would let us know. I appreciate the opportunity to participate in this patient's care. CPT [id number]
[2023-06-24] MEDS: traZODone 50 MG TABLET PO SCH (21:18)
[2023-06-24] MEDS: PREGABALIN 25 MG CAPSULE PO SCH (21:18)
[2023-06-24] MEDS: AMITRIPTYLINE 25 MG TABLET PO SCH (21:18)
[2023-06-24] MEDS: PREGABALIN 100 MG CAPSULE PO SCH (21:18)
[2023-06-25 05:48] LABS: BASOPHILS # (AUTO) 0.1 10^3/uL (0.0-0.1); BASOPHILS % (AUTO) 0.3 %; EOSINOPHILS # (AUTO) 0.1 10^3/uL (0.0-0.7); EOSINOPHILS % (AUTO) 0.5 %; HCT - HEMATOCRIT 21.4 % (42.0-52.0); LYMPHOCYTES # (AUTO) 1.8 10^3/uL (1.5-3.5); LYMPHOCYTES % (AUTO) 10.5 %; MEAN CORPUSCULAR HEMOGLOBIN 30.5 pg (27.0-31.0); MEAN CORPUSCULAR HGB CONC 31.8 g/dL (32.0-36.0); MEAN PLATELET VOLUME 9.9 fL (7.4-11.4); MONOCYTES # (AUTO) 1.7 10^3/uL (0.0-1.0); NEUTROPHILS # (AUTO) 13.1 10^3/uL (1.5-6.6); NEUTROPHILS % (AUTO) 76.3 %; NRBC ABSOLUTE COUNT (AUTO) 0.03 x10^3/uL; NUCLEATED RED BLOOD CELLS AUTO 0.2 /100WBC; PLT - PLATELET COUNT 362 10^3/uL (130-450); RED BLOOD COUNT 2.23 10^6/uL (4.70-6.10); RED CELL DISTRIBUTION WIDTH 14.9 % (12.0-15.0); WHITE BLOOD COUNT 17.2 x10^3/uL (4.8-10.8)
[2023-06-25 05:51] LABS: HGB - HEMOGLOBIN 6.8 g/dL (14.0-18.0)
[2023-06-25 06:05] LABS: PARTIAL THROMBOPLASTIN TIME 25.7 secs (24.9-33.3)
[2023-06-25 06:10] LABS: MAGNESIUM 2.3 mg/dL (1.7-2.3); PHOSPHORUS 3.2 mg/dL (2.5-5.0)
[2023-06-25 06:12] LABS: INR 1.3 (0.8-1.2); PT - PROTHROMBIN TIME 14.2 secs (9.9-12.6)
[2023-06-25 08:11] LABS: CALCIUM, IONIZED 1.07 mmol/L (1.15-1.33); VBG PH 7.463 (7.31-7.41)
[2023-06-25] MEDS: LOSARTAN 50 MG TABLET PO SCH (08:59)
[2023-06-25] MEDS: DULoxetine 60 MG CAPSULE PO SCH (08:59)
--- NOTE | 2023-06-25 11:38 | ANESTHESIA ---
Pre-Anesthesia VS, & Labs - Diagnosis Diagnosis Anemia of unknown etiology but UGIB likely - Procedure EGD Vital Signs: Temp Pulse Resp BP Pulse Ox O2 Flow Rate 36.7 C 95 16 154/89 H 95 1.5 06/25/23 09:00 06/25/23 09:00 06/25/23 09:00 06/25/23 09:00 06/25/23 09:00 06/25/23 05:00 Height: 6 ft Weight (kg): 138 kg Body Mass Index: 41.2 BMI Classification: Morbidly Obese - NPO >8 hours (no solids >8hr, no liquids 6 hrs), Other - Lab Results Current Lab Results: Laboratory Tests 06/25/23 08:03: VBG pH 7.463 H, Ionized Calcium 1.07 L 06/25/23 05:36: Phosphorus 3.2, Magnesium 2.3 06/25/23 05:36: PT 14.2 H, INR 1.3 H, APTT 25.7 06/25/23 05:36: WBC 17.2 H, RBC 2.23 L, Hgb 6.8 L*, Hct 21.4 L, MCV 96.0 H, MCH 30.5, MCHC 31.8 L, RDW 14.9, Plt Count 362, MPV 9.9, Neut # (Auto) 13.1 H, Lymph # (Auto) 1.8, Rush # (Auto) 1.7 H, Eos # (Auto) 0.1, Baso # (Auto) 0.1, Absolute Nucleated RBC 0.03, Nucleated RBC % 0.2 06/24/23 17:29: Hgb 7.5 L, Hct 22.8 L 06/24/23 12:17: WBC 19.7 H, RBC 2.41 L, Hgb 7.2 L, Hct 22.7 L, MCV 94.2 H, MCH 29.9, MCHC 31.7 L, RDW 14.4, Plt Count 422, MPV 9.7, Neut # (Auto) Not Reportable, Lymph # (Auto) Not Reportable, Rush # (Auto) Not Reportable, Eos # (Auto) Not Reportable, Baso # (Auto) Not Reportable, Absolute Nucleated RBC Not Reportable, Total Counted 100, Band Neuts % (Manual) 1, Abnorm Lymph % (Manual) 0, Metamyelocytes % 2 H, Myelocytes % 2 H, Nucleated RBC % Not Reportable, Neutrophils # (Manual) 16.4 H, Lymphocytes # (Manual) 2.4, Monocytes # (Manual) 0.2, Eosinophils # (Manual) 0.0, Basophils # (Manual) 0.0, Differential Comment MANUAL DIFFERENTIAL, Manual Slide Review Indicated, WBC Morphology NORMAL APPEARANCE, Platelet Estimate NORMAL (130-450,000), Platelet Morphology NORMAL MIGUEL, RBC Morph Micro Appear 1+ ANISOCYTOSIS 06/24/23 07:37: Blood Type Recheck O NEGATIVE 06/24/23 07:00: Lactic Acid 1.5 06/24/23 07:00: Blood Type O NEGATIVE, Antibody Screen NEGATIVE, Crossmatch IS Only See Detail 06/24/23 05:38: Sodium 133 L, Potassium 4.3, Chloride 96 L, Carbon Dioxide 30, Anion Gap 7.0, BUN 74 H, Creatinine 1.5 H, Estimated GFR (MDRD) 47 L, Glucose 207 H, Calcium 9.3, Total Bilirubin 0.3, AST 14, ALT 14, Alkaline Phosphatase 52, Troponin I High Sens 11.6, Total Protein 5.1 L, Albumin 2.9 L, Globulin 2.2, Albumin/Globulin Ratio 1.3, Lipase < 10 L 06/24/23 05:38: WBC 19.4 H, RBC 2.00 L, Hgb 6.0 L*, Hct 19.2 L*, MCV 96.0 H, MCH 30.0, MCHC 31.3 L, RDW 13.7, Plt Count 440, MPV 10.0, Neut # (Auto) 15.0 H, Lymph # (Auto) 2.5, Rush # (Auto) 1.3 H, Eos # (Auto) 0.1, Baso # (Auto) 0.1, Absolute Nucleated RBC 0.00, Nucleated RBC % 0.0 Fish Bones: 06/25/23 05:36 06/24/23 05:38 Home Medications and Allergies Home Medications: Ambulatory Orders Diclofenac Sodium Dr [Voltaren] 75 mg PO BIDWM 06/24/23 Active Medications Albuterol (Albuterol Neb 2.5 Mg/3 Ml) 2.5 mg INH RTQ4H PRN PRN Reason: Wheezing Amitriptyline HCl (Amitriptyline 25 Mg Tablet) 25 mg PO QPM [facility] Last Admin: 06/24/23 21:18 Dose: 25 mg Duloxetine HCl (Duloxetine 60 Mg Capsule) 60 mg PO DAILY [facility] Last Admin: 06/25/23 08:59 Dose: 60 mg Pantoprazole Sodium 80 mg/ (Sodium Chloride) 100 mls @ 10 mls/hr IV .Q10H [facility] Last Infusion: 06/25/23 06:43 Dose: 0 mls/hr CALCIUM GLUC 1,000MG/50ML-NACL (Calcium Gluc 1,000mg/50ml-Nacl) 1,000 mg in 50 mls @ 50 mls/hr IV ONCE [facility] Stop: 06/25/23 12:00 Losartan Potassium (Losartan 50 Mg Tablet) 50 mg PO DAILY [facility] Last Admin: 06/25/23 08:59 Dose: 50 mg Oxycodone HCl (Oxycodone 5 Mg Tablet) 10 mg PO Q4HR PRN PRN Reason: PAIN OF 4-8 Last Admin: 06/25/23 09:04 Dose: 10 mg Polyethylene Glycol (Polyethylene Glycol 3350 17 Gm Packet) 17 gm PO DAILY [facility] Last Admin: 06/25/23 08:59 Dose: Not Given Pregabalin (Pregabalin 100 Mg Capsule) 100 mg PO BID [facility] Last Admin: 06/25/23 08:59 Dose: 100 mg Pregabalin (Pregabalin 25 Mg Capsule) 50 mg PO BID [facility] Last Admin: 06/25/23 08:59 Dose: 50 mg Sodium Chloride (Sodium Chloride Flush 0.9% 10 Ml Syringe) 10 ml IVP PRN PRN PRN Reason: NEEDED PER PROVIDER ORDERS Sodium Chloride (Sodium Chloride Flush 0.9% 10 Ml Syringe) 10 ml IVP 0100,0900,1700 [facility] Last Admin: 06/25/23 09:00 Dose: 10 ml Trazodone HCl (Trazodone 50 Mg Tablet) 100 mg PO HS [facility] Last Admin: 06/24/23 21:18 Dose: 100 mg Amitriptyline HCl 25 - 50 mg PO DAILY PM 01/11/18 Azelastine HCl [Astepro] 4 spray NS QPM 01/11/18 Duloxetine HCl [Cymbalta] 60 mg PO DAILY 01/11/18 Oxycodone HCl 10 mg PO Q4HR PRN 01/11/18 Pregabalin [Lyrica] 150 mg PO BID 01/11/18 Tamsulosin [Flomax] 0.4 mg PO DAILY PM 01/11/18 Zolpidem Tartrate [Ambien] 10 mg PO DAILY PM PRN 01/11/18 Albuterol Sulfate [Proair Hfa Inhaler] 1 - 2 puffs INH Q4H PRN 10/22/19 Budesonide/Formoterol Fumarate [Symbicort 160-4.5 Mcg Inhaler] 1 puffs IH DAILY 10/22/19 Losartan [Cozaar] 50 mg PO DAILY 10/22/19 traZODone [Desyrel] 100 mg PO HS 06/17/[address] [Voltaren] 75 mg PO BIDWM 06/24/23 Allergies/Adverse Reactions: Allergies Allergy/AdvReac Type Severity Reaction Status Date / Time [facility] Allergy Rash Verified 06/24/23 05:38 Anes History & Medical History - Anesthetic History Anesthesia Complications: reports: No previous complications Family history of Anesthesia Complications: Denies Family history of Malignant Hyperthermia: Denies - Medical History Cardiovascular: reports: Hypertension Pulmonary: reports: Asthma, Sleep apnea, CPAP use Gastrointestinal: reports: None Urinary: reports: Benign prostate hypertrophy Musculoskeletal: reports: Chronic back pain Endocrine/Autoimmune: reports: None Skin: reports: None Smoking Status: Never smoker Psychosocial: reports: Alcohol (chronic ETOH) History of Cancer?: No - Surgical History General: reports: Colonoscopy Orthopedic: reports: Spine surgery, Other (spinal nerve stimulator) Exam General: Alert, Oriented x3, Cooperative Dental: WNL Mouth Openin Fingerbreadth Neck Mobility: Normal Mallampati classification: II Thyromental Distance: less than 4 cm Respiratory: Lungs clear Cardiovascular: Regular rate Plan Anesthesia Type: General Consent for Procedure(s) Verified and Reviewed: Yes Code Status: Attempt Resuscitation ASA classification: 3-Severe systemic disease Is this case an emergency?: No
[2023-06-25] MEDS ORDERED: PROPOFOL 200 MG/20 ML VIAL IVP ONE (12:07)
[2023-06-25] MEDS ORDERED: LIDOCAINE-MPF 2% 5 ML VIAL ONE (12:33)
[2023-06-25] MEDS ORDERED: ONDANSETRON 4 MG/2 ML VIAL IVP PRN (12:35)
[2023-06-25] MEDS ORDERED: NALOXONE 0.4 MG/ML VIAL IVP PRN (12:35)
[2023-06-25] MEDS ORDERED: ePHEDrine 50 MG/ML VIAL IVP PRN (12:35)
[2023-06-25] MEDS ORDERED: fentaNYL 100 MCG/2 ML VIAL IVP PRN (12:35)
[2023-06-25] MEDS ORDERED: METOCLOPRAMIDE 10 MG/2 ML VIAL IVP PRN (12:35)
[2023-06-25] MEDS ORDERED: ATROPINE ABBOJECT 1 MG/10 ML SYRINGE IVP PRN (12:35)
[2023-06-25] MEDS ORDERED: HYDROmorphone 0.5 MG/0.5 ML SYRINGE IVP PRN (12:35)
[2023-06-25] MEDS ORDERED: MORPHINE 2 MG/ML CARPUJECT IVP PRN (12:35)
[2023-06-25] MEDS: LACTATED RINGERS 700 ML IV ONE ×2 (12:38→12:55)
[2023-06-25] MEDS ORDERED: LACTATED RINGERS 1,000 ML IV SCH (13:00)
[2023-06-25] MEDS: CALCIUM GLUC 1,000MG/50ML-NACL 1,000 MG/50 ML BAG IV SCH (13:07)
--- NOTE | 2023-06-25 14:38 | ANESTHESIA POST OP EVALUATION ---
Anesthesia Post Eval - Post Anesthesia Eval Vitals: Last Vital Signs Temp 37.3 C 06/25/23 12:50 Pulse 88 06/25/23 12:50 Resp 16 06/25/23 12:50 BP 135/79 H 06/25/23 12:50 Pulse Ox 100 06/25/23 12:50 O2 Flow Rate 1.5 06/25/23 05:00 CV Function Including HR & BP: Stable Pain Control: Satisfactory Nausea & Vomiting: Negative Mental Status: Baseline Respiratory Status: Airway Patent Hydration Status: Satisfactory Anesthesia Complications: None
--- NOTE | 2023-06-25 15:45 | XRAY Report ---
PROCEDURE: Ankle 3+V RT INDICATIONS: left ankle pain post fall TECHNIQUE: 3 views of the ankle were acquired. COMPARISON: 08/15/2018. FINDINGS: Bones: No fractures or dislocations. Ankle mortise is normally aligned. No suspicious bony lesions . Plantar calcaneal spurring. Soft tissues: No tibiotalar joint effusion. Achilles tendon appears normal. IMPRESSION: No acute bony abnormality. Reviewed by: Luis Mccord MD on 06/25/2023 3:43 PM PST Approved by: Luis Mccord MD on 06/25/2023 3:43 PM PST Station ID: [id number]
--- NOTE | 2023-06-25 16:13 | PROVIDER PROGRESS NOTE ---
Subjective - Prog Note Date Prog Note Date: 06/25/23 Prog Note Time: 16:12 - Subjective Pt reports feeling: Improved (Had BMs, abdomen feels much better. at bedside. Many questions about plan for EGD and subsequent care. Denies chest pain, hoping to eat after the EGD. Discussed likely has PUD and need to stop NSAIDs and alcohol, and take PPI.) Subjective: Also c/o right foot pain after his fall. This patient requires hospitalization due to GI bleed and continued acute blood loss anemia. Anticipated DC plan is home with family. Current Medications - Current Medications Current Medications: Active Medications Generic Name Dose Route Start Last Admin Trade Name Freq PRN Reason Stop Dose Admin Albuterol 2.5 mg 06/24/23 10:58 Albuterol Neb 2.5 Mg/3 Ml INH RTQ4H PRN Wheezing Amitriptyline HCl 25 mg 06/24/23 21:00 06/24/23 21:18 Amitriptyline 25 Mg Tablet PO 25 mg QPM MAY Administration Duloxetine HCl 60 mg 06/25/23 09:00 06/25/23 08:59 Duloxetine 60 Mg Capsule PO 60 mg DAILY [facility] Administration Pantoprazole Sodium 80 mg/ 100 mls @ 10 mls/hr 06/24/23 14:00 06/25/23 14:20 Sodium Chloride IV 06/25/23 18:59 10 mls/hr .Q10H MAY Infusion Pantoprazole Sodium 80 mg/ 100 mls @ 10 mls/hr 06/25/23 19:00 Sodium Chloride IV .Q10H MAY Losartan Potassium 50 mg 06/25/23 09:00 06/25/23 08:59 Losartan 50 Mg Tablet PO 50 mg DAILY [facility] Administration Oxycodone HCl 10 mg 06/24/23 10:31 06/25/23 13:46 Oxycodone 5 Mg Tablet PO 10 mg Q4HR PRN Administration PAIN OF 4-8 Polyethylene Glycol 17 gm 06/24/23 11:00 06/25/23 08:59 Polyethylene Glycol 3350 17 Gm Packet PO Not Given DAILY [facility] Pregabalin 100 mg 06/24/23 21:00 06/25/23 08:59 Pregabalin 100 Mg Capsule PO 100 mg BID MAY Administration Pregabalin 50 mg 06/24/23 21:00 06/25/23 08:59 Pregabalin 25 Mg Capsule PO 50 mg BID MAY Administration Sodium Chloride 10 ml 06/24/23 08:21 Sodium Chloride Flush 0.9% 10 Ml Syringe IVP PRN PRN NEEDED PER PROVIDER ORDERS Sodium Chloride 10 ml 06/24/23 09:00 06/25/23 09:00 Sodium Chloride Flush 0.9% 10 Ml Syringe IVP 10 ml 0100,0900,1700 MAY Administration Trazodone HCl 100 mg 06/24/23 21:00 06/24/23 21:18 Trazodone 50 Mg Tablet PO 100 mg HS MAY Administration Amitriptyline HCl 25 - 50 mg PO DAILY PM 01/11/18 Azelastine HCl [Astepro] 4 spray NS QPM 01/11/18 Duloxetine HCl [Cymbalta] 60 mg PO DAILY 01/11/18 Oxycodone HCl 10 mg PO Q4HR PRN 01/11/18 Pregabalin [Lyrica] 150 mg PO BID 01/11/18 Tamsulosin [Flomax] 0.4 mg PO DAILY PM 01/11/18 Zolpidem Tartrate [Ambien] 10 mg PO DAILY PM PRN 01/11/18 Albuterol Sulfate [Proair Hfa Inhaler] 1 - 2 puffs INH Q4H PRN 10/22/19 Budesonide/Formoterol Fumarate [Symbicort 160-4.5 Mcg Inhaler] 1 puffs IH DAILY 10/22/19 Losartan [Cozaar] 50 mg PO DAILY 10/22/19 traZODone [Desyrel] 100 mg PO HS 06/17/[address] [Voltaren] 75 mg PO BIDWM 06/24/23 Objective - Vital Signs/Intake & Output Reviewed Vital Signs: Yes Vital Signs: Vital Signs x48h Temp Pulse Pulse Resp BP BP BP 06/25/23 15:38 36.4 C L 89 20 137/66 H 06/25/23 12:50 37.3 C 88 16 135/79 H 06/25/23 12:45 37.3 C 88 23 138/80 H 06/25/23 12:38 37.5 C 95 21 137/77 H 06/25/23 12:01 36.7 C 87 16 148/79 H 06/25/23 09:00 36.7 C 95 16 154/89 H 06/25/23 08:28 36.7 C 95 16 154/89 H Pulse Ox O2 Flow Rate 06/25/23 15:38 96 2 06/25/23 12:50 100 06/25/23 12:45 97 06/25/23 12:38 91 L 06/25/23 12:01 94 06/25/23 09:00 95 06/25/23 08:28 95 Intake & Output: Intake & Output 06/22/23 06/23/23 06/24/23 06/25/23 23:59 23:59 23:59 23:59 Intake Total 1999 491.167 Balance 1999 491.167 - Objective General Appearance: positive: No acute distress, Alert Respiratory: positive: Chest non-tender, No respiratory distress, Breath sounds nml Cardiovascular: positive: Regular rate & rhythm, Other (murmur heard) Peripheral Pulses: 1+ Dorsalis pedis (R), 1+ Dorsalis pedis (L) Abdomen: positive: Non-tender, No organomegaly, Nml bowel sounds, No distention Skin: positive: No rash, Warm, Pallor Extremities: positive: No pedal edema, Other (right foot with tenderness to palpation under 1st metatarsal near arch of foot, pain with dorsiflexion of right foot, no pain with plantar flexion or ROM of 1st toe) Neurologic/Psychiatric: positive: Oriented x3, Motor nml, Sensation nml - Lab Results Fish Bones: 06/25/23 05:36 06/24/23 05:38 Other Labs: Lab Results x24hrs 06/25/23 06/25/23 06/25/23 Range/Units 08:03 05:36 05:36 WBC (4.8-10.8) x10^3/uL RBC (4.70-6.10) 10^6/uL Hgb (14.0-18.0) g/dL Hct (42.0-52.0) % MCV (80.0-94.0) fL MCH (27.0-31.0) pg MCHC (32.0-36.0) g/dL RDW (12.0-15.0) % Plt Count (130-450) 10^3/uL MPV (7.4-11.4) fL Neut # (Auto) (1.5-6.6) 10^3/uL Lymph # (Auto) (1.5-3.5) 10^3/uL Cotton # (Auto) (0.0-1.0) 10^3/uL Eos # (Auto) (0.0-0.7) 10^3/uL Baso # (Auto) (0.0-0.1) 10^3/uL Absolute Nucleated RBC x10^3/uL Nucleated RBC % /100WBC PT 14.2 H (9.9-12.6) secs INR 1.3 H (0.8-1.2) APTT 25.7 (24.9-33.3) secs VBG pH 7.463 H (7.31-7.41) Ionized Calcium 1.07 L (1.15-1.33) mmol/L Phosphorus 3.2 (2.5-5.0) mg/dL Magnesium 2.3 (1.7-2.3) mg/dL Stl Occult Blood (IFOB) (NEGATIVE) Blood Type Antibody Screen Crossmatch IS Only 06/25/23 06/24/23 06/24/23 Range/Units 05:36 17:29 17:23 WBC 17.2 H (4.8-10.8) x10^3/uL RBC 2.23 L (4.70-6.10) 10^6/uL Hgb 6.8 L* 7.5 L (14.0-18.0) g/dL Hct 21.4 L 22.8 L (42.0-52.0) % MCV 96.0 H (80.0-94.0) fL MCH 30.5 (27.0-31.0) pg MCHC 31.8 L (32.0-36.0) g/dL RDW 14.9 (12.0-15.0) % Plt Count 362 (130-450) 10^3/uL MPV 9.9 (7.4-11.4) fL Neut # (Auto) 13.1 H (1.5-6.6) 10^3/uL Lymph # (Auto) 1.8 (1.5-3.5) 10^3/uL Cotton # (Auto) 1.7 H (0.0-1.0) 10^3/uL Eos # (Auto) 0.1 (0.0-0.7) 10^3/uL Baso # (Auto) 0.1 (0.0-0.1) 10^3/uL Absolute Nucleated RBC 0.03 x10^3/uL Nucleated RBC % 0.2 /100WBC PT (9.9-12.6) secs INR (0.8-1.2) APTT (24.9-33.3) secs VBG pH (7.31-7.41) Ionized Calcium (1.15-1.33) mmol/L Phosphorus (2.5-5.0) mg/dL Magnesium (1.7-2.3) mg/dL Stl Occult Blood (IFOB) POSITIVE A (NEGATIVE) Blood Type Antibody Screen Crossmatch IS Only 06/24/23 Range/Units 07:00 WBC (4.8-10.8) x10^3/uL RBC (4.70-6.10) 10^6/uL Hgb (14.0-18.0) g/dL Hct (42.0-52.0) % MCV (80.0-94.0) fL MCH (27.0-31.0) pg MCHC (32.0-36.0) g/dL RDW (12.0-15.0) % Plt Count (130-450) 10^3/uL MPV (7.4-11.4) fL Neut # (Auto) (1.5-6.6) 10^3/uL Lymph # (Auto) (1.5-3.5) 10^3/uL Cotton # (Auto) (0.0-1.0) 10^3/uL Eos # (Auto) (0.0-0.7) 10^3/uL Baso # (Auto) (0.0-0.1) 10^3/uL Absolute Nucleated RBC x10^3/uL Nucleated RBC % /100WBC PT (9.9-12.6) secs INR (0.8-1.2) APTT (24.9-33.3) secs VBG pH (7.31-7.41) Ionized Calcium (1.15-1.33) mmol/L Phosphorus (2.5-5.0) mg/dL Magnesium (1.7-2.3) mg/dL Stl Occult Blood (IFOB) (NEGATIVE) Blood Type O NEGATIVE Antibody Screen NEGATIVE Crossmatch IS Only See Detail ABX Reporting Has patient been on IV antibiotics over the past 48 hours?: No Assessment/Plan - Problem List (1) Acute anemia Impression: Acute blood loss anemia due to GI bleed. Hgb 6.0 on 06/23, 8.6 on 06/22, 12.6 on 06/17. Iron and Tsat also low. Daily EtOH and NSAID use. Complicated by iron deficiency. Lipase and CT A/P neg. Initial consideration was acute GI bleed but no report of melena, hematochezia, not on blood thinners, no signs of bleeding, fecal occult blood neg. After transfusion on 06/23 when hgb did not rise as expected and it was noted BUN/Cr ration was elevated, suspected he had an atypical GIB presentation due to his severe constipation making the bleed less symptomatic. At risk for UGIB being on NSAIDs at home and in setting of daily EtOH use. S/p EGD 06/24 which showed large peptic ulcer. Plan: s/p 3 units of PRBCs thus far Seen by surgery Dr. Quan Transfuse if hgb<7 Monitor H/H Monitor stools for any melena or bleeding Needs outpatient GI follow up NO NSAIDS Needs to stop drinking EtOH Continue PPI for at least 12 weeks (2) UGIB (upper gastrointestinal bleed) Impression: as above (3) Iron deficiency Impression: Labs show iron low at 43, Tsat low at 14. Contributing to anemia. Plan: Consider IV iron prior to DC Likely will need PO iron at DC (4) Abdominal pain Impression: Improved after relief of constipation. With nausea and early satiety, suspect due to severe constipation and PUD. CT A/P showed large stool burden. Plan: bowel protocol Qualifiers: Abdominal location: generalized Qualified Code(s): R10.84 - Generalized abdominal pain (5) Constipation Impression: Improved Plan: continue bowel regimen Qualifiers: Constipation type: slow transit constipation Qualified Code(s): K59.01 - Slow transit constipation (6) Syncope Impression: Improved. Suspect due to hypovolemia in setting of anemia. Also uses EtOH and opiates which contribute. Plan: treat anemia and monitor Qualifiers: Syncope type: unspecified Qualified Code(s): R55 - Syncope and collapse (7) Leukocytosis Impression: No definite signs of infection. WBC 19.4 on admit and mention of possible LLL small infiltrate on CT A/P, but CXR clear, afebrile, no hypoxia, doubt acute infection. Leukocytosis could be reactive in setting of GIB. Plan: no indication for antibiotics at present Monitor WBC count Qualifiers: Leukocytosis type: unspecified Qualified Code(s): D72.829 - Elevated white blood cell count, unspecified (8) Postoperative pain, acute, shoulder Impression: s/p L shoulder rotator cuff surgery ~mid-May. In sling. Has been taking oxycodone 10 mg (12 tabs per day) post-op for pain. Site without signs of infection. Plan: Continue home oxycodone prn pain (9) Chronic pain Impression: H/o lumbar fusion and radiculopathy with implanted spinal nerve stimulator. On multiple medications chronically for pain. Plan: continue home medications including pregabalin, amitriptyline, Cymbalta Do NOT restart NSAIDs at DC due to GIB Recommend avoiding IV opiates to treat chronic pain Qualifiers: Chronic pain type: chronic pain syndrome Qualified Code(s): G89.4 - Chronic pain syndrome (10) Alcohol use disorder Impression: Admits to excessive EtOH use, drinks on average 4 cocktails per night. Has never had EtOH withdrawal. Plan: monitor for any s/s withdrawal, if any develop, start CIWA protocol Recommend he stop ALL EtOH due to GIB (11) Hypertension Impression: BP stable. Plan: Continue home losartan Qualifiers: Hypertension type: primary hypertension Qualified Code(s): I10 - Essential (primary) hypertension (12) ROSE MARY on CPAP Impression: Stable. Plan: use home CPAP with home settings, if unavailable may need O2 with sleep (13) Asthma Impression: Stable. No wheezing. Plan: continue albuterol prn Qualifiers: Asthma severity: unspecified severity Asthma persistence: unspecified Asthma complication type: uncomplicated Qualified Code(s): J45.909 - Unspecified asthma, uncomplicated
[2023-06-25] MEDS: PANTOPRAZOLE 80 MG in SODIUM CHLORIDE 0.9% 100ML 100 ML IV SCH (18:24)
[2023-06-25 18:45] LABS: HCT - HEMATOCRIT 22.9 % (42.0-52.0); HGB - HEMOGLOBIN 7.1 g/dL (14.0-18.0)
[2023-06-26] MEDS: SUCRALFATE 1 GM/10 ML UDC PO SCH (06:15)
[2023-06-26 06:40] LABS: CALCIUM 8.1 mg/dL (8.5-10.3)
--- NOTE | 2023-06-26 08:25 | PROVIDER PROGRESS NOTE ---
Assessment/Plan - Problem List (1) Acute anemia Assessment/Plan: Secondary to large ulcer identified by EGD -improved anemia after transfusion -Received 2 PRBC, Hb improve -monitoring -transfuse if Hb<7 , or symptamatic (2) Iron deficiency Assessment/Plan: Received blood transfusion. If no further need of blood transfusion, may consider iv iron prior discharge (3) ROSE MARY on CPAP Assessment/Plan: resume home CPAP (4) Abdominal pain Qualifiers: Abdominal location: generalized Qualified Code(s): R10.84 - Generalized abdominal pain Assessment/Plan: resolved - Current Meds Current Meds: Current Medications Generic Name Dose Route Start Last Admin Trade Name Freq PRN Reason Stop Dose Admin Amitriptyline HCl 25 mg 06/24/23 21:00 06/25/23 20:50 Amitriptyline 25 Mg Tablet PO 25 mg QPM MAY Administration Duloxetine HCl 60 mg 06/25/23 09:00 06/25/23 08:59 Duloxetine 60 Mg Capsule PO 60 mg DAILY MAY Administration Pantoprazole Sodium 80 mg/ 100 mls @ 10 mls/hr 06/25/23 19:00 06/26/23 06:04 Sodium Chloride IV 10 mls/hr .Q10H MAY Administration Losartan Potassium 50 mg 06/25/23 09:00 06/25/23 08:59 Losartan 50 Mg Tablet PO 50 mg DAILY MAY Administration Oxycodone HCl 10 mg 06/24/23 10:31 06/26/23 06:15 Oxycodone 5 Mg Tablet PO 10 mg Q4HR PRN Administration PAIN OF 4-8 Polyethylene Glycol 17 gm 06/24/23 11:00 06/25/23 08:59 Polyethylene Glycol 3350 17 Gm Packet PO Not Given DAILY MAY Pregabalin 100 mg 06/24/23 21:00 06/25/23 20:50 Pregabalin 100 Mg Capsule PO 100 mg BID MAY Administration Pregabalin 50 mg 06/24/23 21:00 06/25/23 20:50 Pregabalin 25 Mg Capsule PO 50 mg BID MAY Administration Sodium Chloride 10 ml 06/24/23 09:00 06/26/23 00:29 Sodium Chloride Flush 0.9% 10 Ml Syringe IVP 10 ml 0100,0900,1700 MAY Administration Sucralfate 1 gm 06/26/23 07:00 06/26/23 06:15 Sucralfate 1 Gm/10 Ml Udc PO 1 gm 0700,1100,1600,2200 MAY Administration Trazodone HCl 100 mg 06/24/23 21:00 06/25/23 20:50 Trazodone 50 Mg Tablet PO 100 mg HS MAY Administration - Lab Result Fish Bone Diagrams: 06/26/23 19:30 06/26/23 05:59 - Additional Planning My Orders: My Active Orders 06/26/23 CBC - COMP BLD CT W/AUTO DIFF [HEME] Stat 06/27/23 05:00 BMP - BASIC METABOLIC PANEL [CHEM] DAILYLAB CBC [CBC - COMP BLD CT W/AUTO DIFF] [HEME] DAILYLAB 06/28/23 05:00 BMP - BASIC METABOLIC PANEL [CHEM] DAILYLAB CBC [CBC - COMP BLD CT W/AUTO DIFF] [HEME] DAILYLAB 06/29/23 05:00 BMP - BASIC METABOLIC PANEL [CHEM] DAILYLAB CBC [CBC - COMP BLD CT W/AUTO DIFF] [HEME] DAILYLAB 06/30/23 05:00 BMP - BASIC METABOLIC PANEL [CHEM] DAILYLAB CBC [CBC - COMP BLD CT W/AUTO DIFF] [HEME] DAILYLAB 07/01/23 05:00 BMP - BASIC METABOLIC PANEL [CHEM] DAILYLAB CBC [CBC - COMP BLD CT W/AUTO DIFF] [HEME] DAILYLAB Subjective - Subjective Patient Reports: Feeling Better Nursing Reports: No Complaints Objective Vital Signs: Vital Signs - 24 hr 06/25/23 06/25/23 06/25/23 08:28 09:00 12:01 Temperature 36.7 C 36.7 C 36.7 C Heart Rate Heart Rate [ 95 95 87 Brachial] Respiratory 16 16 16 Rate Blood Pressure Blood Pressure [Right Brachial artery] Blood Pressure 154/89 H 154/89 H 148/79 H [Right Radial artery] O2 Saturation 95 95 94 If not protocol : Oxygen Flow, liters/minute 06/25/23 06/25/23 06/25/23 12:38 12:45 12:50 Temperature 37.5 C 37.3 C 37.3 C Heart Rate 95 88 88 Heart Rate [ Brachial] Respiratory 21 23 16 Rate Blood Pressure 137/77 H 138/80 H 135/79 H Blood Pressure [Right Brachial artery] Blood Pressure [Right Radial artery] O2 Saturation 91 L 97 100 If not protocol : Oxygen Flow, liters/minute 06/25/23 06/25/23 06/26/23 15:38 20:47 00:09 Temperature 36.4 C L 36.7 C 36.4 C L Heart Rate Heart Rate [ 89 86 83 Brachial] Respiratory 20 16 18 Rate Blood Pressure Blood Pressure 137/66 H 133/77 H 144/82 H [Right Brachial artery] Blood Pressure [Right Radial artery] O2 Saturation 96 97 96 If not protocol 2 2 2 : Oxygen Flow, liters/minute 06/26/23 06/26/23 05:26 07:48 Temperature 36.8 C 36.7 C Heart Rate Heart Rate [ 85 92 Brachial] Respiratory 20 18 Rate Blood Pressure Blood Pressure 124/72 159/85 H [Right Brachial artery] Blood Pressure [Right Radial artery] O2 Saturation 96 95 If not protocol 2 2 : Oxygen Flow, liters/minute Oxygen O2 Source Nasal cannula I&O (Last 24 Hrs): Intake and Output Totals x24h 06/24/23 06/25/23 06/26/23 23:59 23:59 23:59 Intake Total 1999 981.500 100 Output Total 625 Balance 1999 981.500 -525 General: Alert, Cooperative HEENT: EOMI Neck: Supple, No JVD Neuro: Alert, Non Focal Cardiovascular: Regular rate Respiratory: Chest non-tender Abdomen: Normal bowel sounds Genitourinary: Abnormal Prostate - Results Results: Laboratory Results WBC 17.2 x10^3/uL (4.8-10.8) H 06/25/23 05:36 RBC 2.23 10^6/uL (4.70-6.10) L 06/25/23 05:36 Hgb 7.1 g/dL (14.0-18.0) L 06/25/23 18:28 Hct 22.9 % (42.0-52.0) L 06/25/23 18:28 MCV 96.0 fL (80.0-94.0) H 06/25/23 05:36 MCH 30.5 pg (27.0-31.0) 06/25/23 05:36 MCHC 31.8 g/dL (32.0-36.0) L 06/25/23 05:36 RDW 14.9 % (12.0-15.0) 06/25/23 05:36 Plt Count 362 10^3/uL (130-450) 06/25/23 05:36 MPV 9.9 fL (7.4-11.4) 06/25/23 05:36 Neut # (Auto) 13.1 10^3/uL (1.5-6.6) H 06/25/23 05:36 Lymph # (Auto) 1.8 10^3/uL (1.5-3.5) 06/25/23 05:36 [place] # (Auto) 1.7 10^3/uL (0.0-1.0) H 06/25/23 05:36 Eos # (Auto) 0.1 10^3/uL (0.0-0.7) 06/25/23 05:36 Baso # (Auto) 0.1 10^3/uL (0.0-0.1) 06/25/23 05:36 Absolute Nucleated RBC 0.03 x10^3/uL 06/25/23 05:36 Total Counted 100 06/24/23 12:17 Band Neuts % (Manual) 1 % (0-10) 06/24/23 12:17 Abnorm Lymph % (Manual) 0 % 06/24/23 12:17 Metamyelocytes % 2 % (-0) H 06/24/23 12:17 Myelocytes % 2 % (-0) H 06/24/23 12:17 Nucleated RBC % 0.2 /100WBC 06/25/23 05:36 Neutrophils # (Manual) 16.4 10^3/uL (1.5-6.6) H 06/24/23 12:17 Lymphocytes # (Manual) 2.4 10^3/uL (1.5-3.5) 06/24/23 12:17 Monocytes # (Manual) 0.2 10^3/uL (0.0-1.0) 06/24/23 12:17 Eosinophils # (Manual) 0.0 10^3/uL (0-0.7) 06/24/23 12:17 Basophils # (Manual) 0.0 10^3/uL (0-0.1) 06/24/23 12:17 Differential Comment MANUAL DIFFERENTIAL 06/24/23 12:17 Manual Slide Review Indicated 06/24/23 12:17 WBC Morphology NORMAL APPEARANCE (NORMAL) 06/24/23 12:17 Platelet Estimate NORMAL (130-450,000) (NORMAL) 06/24/23 12:17 Platelet Morphology NORMAL MIGUEL (NORMAL) 06/24/23 12:17 RBC Morph Micro Appear 2+ HYPOCHROMASIA (NORMAL) 1+ ANISOCYTOSIS (NORMAL) 06/24/23 12:17 RBC Morph Micro Appear 2+ HYPOCHROMASIA (NORMAL) 1+ ANISOCYTOSIS (NORMAL) 06/24/23 12:17 PT 14.2 secs (9.9-12.6) H 06/25/23 05:36 INR 1.3 (0.8-1.2) H 06/25/23 05:36 APTT 25.7 secs (24.9-33.3) 06/25/23 05:36 VBG pH 7.463 (7.31-7.41) H 06/25/23 08:03 Ionized Calcium 1.07 mmol/L (1.15-1.33) L 06/25/23 08:03 Sodium 139 mmol/L (135-145) 06/26/23 05:59 Potassium 4.0 mmol/L (3.5-4.5) 06/26/23 05:59 Chloride 104 mmol/L (101-111) 06/26/23 05:59 Carbon Dioxide 31 mmol/L (21-32) 06/26/23 05:59 Anion Gap 4.0 (6-13) L 06/26/23 05:59 BUN 32 mg/dL (6-20) H 06/26/23 05:59 Creatinine 1.0 mg/dL (0.6-1.3) 06/26/23 05:59 Estimated GFR (MDRD) 75 (>89) L 06/26/23 05:59 Glucose 112 mg/dL (74-104) H 06/26/23 05:59 Lactic Acid 1.5 mmol/L (0.5-2.2) 06/24/23 07:00 Calcium 8.1 mg/dL (8.5-10.3) L 06/26/23 05:59 Phosphorus 3.2 mg/dL (2.5-5.0) 06/25/23 05:36 Magnesium 2.3 mg/dL (1.7-2.3) 06/25/23 05:36 Total Bilirubin 0.3 mg/dL (0.2-1.0) 06/24/23 05:38 AST 14 IU/L (10-42) 06/24/23 05:38 ALT 14 IU/L (10-60) 06/24/23 05:38 Alkaline Phosphatase 52 IU/L (42-121) 06/24/23 05:38 Troponin I High Sens 11.6 ng/L (2.3-19.7) 06/24/23 05:38 Total Protein 5.1 g/dL (6.4-8.9) L 06/24/23 05:38 Albumin 2.9 g/dL (3.2-5.5) L 06/24/23 05:38 Globulin 2.2 g/dL (2.1-4.2) 06/24/23 05:38 Albumin/Globulin Ratio 1.3 (1.0-2.2) 06/24/23 05:38 Lipase < 10 U/L (11-82) L 06/24/23 05:38 Urine Color YELLOW 06/24/23 06:20 Urine Clarity CLEAR (CLEAR) 06/24/23 06:20 Urine pH 5.5 PH (5.0-7.5) 06/24/23 06:20 Ur Specific [place] 1.015 (1.002-1.030) 06/24/23 06:20 Urine Protein NEGATIVE mg/dL (NEGATIVE) 06/24/23 06:20 Urine Glucose (UA) NEGATIVE mg/dL (NEGATIVE) 06/24/23 06:20 Urine Ketones TRACE mg/dL (NEGATIVE) 06/24/23 06:20 Urine Occult Blood NEGATIVE (NEGATIVE) 06/24/23 06:20 Urine Nitrite NEGATIVE (NEGATIVE) 06/24/23 06:20 Urine Bilirubin NEGATIVE (NEGATIVE) 06/24/23 06:20 Urine Urobilinogen 0.2 (NORMAL) E.U./dL (NORMAL) 06/24/23 06:20 Ur Leukocyte Esterase NEGATIVE (NEGATIVE) 06/24/23 06:20 Ur Microscopic Review NOT INDICATED 06/24/23 06:20 Urine Culture Comments NOT INDICATED 06/24/23 06:20 Nasal Adenovirus (PCR) NOT DETECTED 06/24/23 06:14 Nasal B. parapertussis DNA (PCR) NOT DETECTED 06/24/23 06:14 Nasal Coronavir 229E PCR NOT DETECTED 06/24/23 06:14 Nasal Coronavir HKU1 PCR NOT DETECTED 06/24/23 06:14 Nasal Coronavir NL63 PCR NOT DETECTED 06/24/23 06:14 Nasal Coronavir OC43 PCR NOT DETECTED 06/24/23 06:14 Nasal Enterovir/Rhinovir PCR NOT DETECTED 06/24/23 06:14 Nasal Influenza B PCR NOT DETECTED 06/24/23 06:14 Nasal Influenza A PCR NOT DETECTED 06/24/23 06:14 Nasal Parainfluen 1 PCR NOT DETECTED 06/24/23 06:14 Nasal Parainfluen 2 PCR NOT DETECTED 06/24/23 06:14 Nasal Parainfluen 3 PCR NOT DETECTED 06/24/23 06:14 Nasal Parainfluen 4 PCR NOT DETECTED 06/24/23 06:14 Nasal RSV (PCR) NOT DETECTED 06/24/23 06:14 Nasal B.pertussis DNA PCR NOT DETECTED 06/24/23 06:14 Nasal C.pneumoniae (PCR) NOT DETECTED 06/24/23 06:14 [place] Human Metapneumo PCR NOT DETECTED 06/24/23 06:14 Nasal M.pneumoniae (PCR) NOT DETECTED 06/24/23 06:14 Nasal SARS-CoV-2 (PCR) NOT DETECTED 06/24/23 06:14 Stl Occult Blood (IFOB) POSITIVE (NEGATIVE) A 06/24/23 17:23 Blood Type O NEGATIVE 06/24/23 07:00 Blood Type Recheck O NEGATIVE 06/24/23 07:37 Antibody Screen NEGATIVE 06/24/23 07:00 Crossmatch IS Only See Detail 06/24/23 07:00 - Procedures Procedures: Procedures RESECTION OF LEFT ELBOW BURSA AND LIGAMENT, OPEN APPROACH (01/18/18) Sepsis Event Note (H) - Evaluation Current Stage of Sepsis: Ruled out ABX Reporting Has patient been on IV antibiotics over the past 48 hours?: No Current Medications - Current Medications Current Medications: Active Medications Generic Name Dose Route Start Last Admin Trade Name Freq PRN Reason Stop Dose Admin Albuterol 2.5 mg 06/24/23 10:58 Albuterol Neb 2.5 Mg/3 Ml INH RTQ4H PRN Wheezing Amitriptyline HCl 25 mg 06/24/23 21:00 06/26/23 21:01 Amitriptyline 25 Mg Tablet PO 25 mg QPM MAY Administration Duloxetine HCl 60 mg 06/25/23 09:00 06/26/23 08:31 Duloxetine 60 Mg Capsule PO 60 mg DAILY MAY Administration Famotidine 20 mg 06/26/23 09:00 06/26/23 21:01 Famotidine 20 Mg Tablet PO 20 mg BID MAY Administration Pantoprazole Sodium 80 mg/ 100 mls @ 10 mls/hr 06/25/23 19:00 06/26/23 18:00 Sodium Chloride IV 10 mls/hr .Q10H MAY Administration Losartan Potassium 50 mg 06/25/23 09:00 06/26/23 08:31 Losartan 50 Mg Tablet PO 50 mg DAILY MAY Administration Oxycodone HCl 10 mg 06/24/23 10:31 06/26/23 21:00 Oxycodone 5 Mg Tablet PO 10 mg Q4HR PRN Administration PAIN OF 4-8 Polyethylene Glycol 17 gm 06/24/23 11:00 06/26/23 08:32 Polyethylene Glycol 3350 17 Gm Packet PO Not Given DAILY MAY Pregabalin 100 mg 06/24/23 21:00 06/26/23 21:00 Pregabalin 100 Mg Capsule PO 100 mg BID MAY Administration Pregabalin 50 mg 06/24/23 21:00 06/26/23 21:00 Pregabalin 25 Mg Capsule PO 50 mg BID MAY Administration Sodium Chloride 10 ml 06/24/23 08:21 Sodium Chloride Flush 0.9% 10 Ml Syringe IVP PRN PRN NEEDED PER PROVIDER ORDERS Sodium Chloride 10 ml 06/24/23 09:00 06/26/23 17:52 Sodium Chloride Flush 0.9% 10 Ml Syringe IVP 10 ml 0100,0900,1700 MAY Administration Sucralfate 1 gm 06/26/23 07:00 06/26/23 21:01 Sucralfate 1 Gm/10 Ml Udc PO 1 gm 0700,1100,1600,2200 MAY Administration Trazodone HCl 100 mg 06/24/23 21:00 06/26/23 21:00 Trazodone 50 Mg Tablet PO 100 mg HS MAY Administration Amitriptyline HCl 25 - 50 mg PO DAILY PM 01/11/18 Azelastine HCl [Astepro] 4 spray NS QPM 01/11/18 Duloxetine HCl [Cymbalta] 60 mg PO DAILY 01/11/18 Oxycodone HCl 10 mg PO Q4HR PRN 01/11/18 Pregabalin [Lyrica] 150 mg PO BID 01/11/18 Tamsulosin [Flomax] 0.4 mg PO DAILY PM 01/11/18 Zolpidem Tartrate [Ambien] 10 mg PO DAILY PM PRN 01/11/18 Albuterol Sulfate [Proair Hfa Inhaler] 1 - 2 puffs INH Q4H PRN 10/22/19 Budesonide/Formoterol Fumarate [Symbicort 160-4.5 Mcg Inhaler] 1 puffs IH DAILY 10/22/19 Losartan [Cozaar] 50 mg PO DAILY 10/22/19 traZODone [Desyrel] 100 mg PO HS 06/17/[address] [Voltaren] 75 mg PO BIDWM 06/24/23
[2023-06-26 08:35] LABS: BASOPHILS % (AUTO) 0.3 %; EOSINOPHILS # (AUTO) 0.1 10^3/uL (0.0-0.7); EOSINOPHILS % (AUTO) 1.3 %; HCT - HEMATOCRIT 22.1 % (42.0-52.0); LYMPHOCYTES # (AUTO) 1.5 10^3/uL (1.5-3.5); LYMPHOCYTES % (AUTO) 14.1 %; MEAN CORPUSCULAR HEMOGLOBIN 30.1 pg (27.0-31.0); MEAN CORPUSCULAR HGB CONC 30.8 g/dL (32.0-36.0); MEAN CORPUSCULAR VOLUME 97.8 fL (80.0-94.0); MEAN PLATELET VOLUME 9.8 fL (7.4-11.4); MONOCYTES % (AUTO) 9.6 %; NEUTROPHILS # (AUTO) 7.6 10^3/uL (1.5-6.6); NRBC ABSOLUTE COUNT (AUTO) 0.05 x10^3/uL; NUCLEATED RED BLOOD CELLS AUTO 0.5 /100WBC; PLT - PLATELET COUNT 289 10^3/uL (130-450); RED BLOOD COUNT 2.26 10^6/uL (4.70-6.10); WHITE BLOOD COUNT 10.7 x10^3/uL (4.8-10.8)
[2023-06-26 08:39] LABS: HGB - HEMOGLOBIN 6.8 g/dL (14.0-18.0)
[2023-06-26] MEDS: FAMOTIDINE 20 MG TABLET PO SCH (10:43)
[2023-06-26 20:12] LABS: HCT - HEMATOCRIT 25.2 % (42.0-52.0)
[2023-06-27 06:04] LABS: BASOPHILS % (AUTO) 0.3 %; EOSINOPHILS # (AUTO) 0.2 10^3/uL (0.0-0.7); EOSINOPHILS % (AUTO) 1.8 %; HCT - HEMATOCRIT 26.1 % (42.0-52.0); LYMPHOCYTES # (AUTO) 1.2 10^3/uL (1.5-3.5); LYMPHOCYTES % (AUTO) 12.7 %; MEAN CORPUSCULAR HEMOGLOBIN 29.7 pg (27.0-31.0); MEAN CORPUSCULAR HGB CONC 30.7 g/dL (32.0-36.0); MEAN PLATELET VOLUME 9.7 fL (7.4-11.4); MONOCYTES % (AUTO) 10.1 %; NEUTROPHILS # (AUTO) 6.8 10^3/uL (1.5-6.6); NEUTROPHILS % (AUTO) 71.3 %; NRBC ABSOLUTE COUNT (AUTO) 0.03 x10^3/uL; NUCLEATED RED BLOOD CELLS AUTO 0.3 /100WBC; PLT - PLATELET COUNT 284 10^3/uL (130-450); RED BLOOD COUNT 2.69 10^6/uL (4.70-6.10); RED CELL DISTRIBUTION WIDTH 16.4 % (12.0-15.0); WHITE BLOOD COUNT 9.6 x10^3/uL (4.8-10.8)
[2023-06-27 06:23] LABS: CALCIUM 8.3 mg/dL (8.5-10.3); CREATININE 0.8 mg/dL (0.6-1.3); POTASSIUM 3.8 mmol/L (3.5-4.5)
--- NOTE | 2023-06-27 08:28 | PROVIDER PROGRESS NOTE ---
Assessment/Plan - Problem List (1) Acute anemia Assessment/Plan: stable Hb 8 today am (from Hb8 yesterday pm after two units PRBC) Recheck Hb today pm 8.5 continue PPI iv bid till tomorrow if continue to be stable, will transation to oral PPI tomorrow (2) Iron deficiency Assessment/Plan: will start on iron supplement once stable Hb (3) ROSE MRAY on CPAP Assessment/Plan: Use home CPAP at night (4) Abdominal pain Qualifiers: Abdominal location: generalized Qualified Code(s): R10.84 - Generalized abdominal pain Assessment/Plan: Resolved (5) SOB (shortness of breath) on exertion Assessment/Plan: Chronic, patient and reported this symptom for a while, along with leg swollen sometimes Patient has been seeing cardiology and pulmonlogy, no diagnosis so far -desaturation event noted during hospital stay, espicially on exertion -CXR showed no sign of fluid overload (after total 5 units blood transfusion) -BNP normal -Check Echo -Home O2 eval - Current Meds Current Meds: Current Medications Generic Name Dose Route Start Last Admin Trade Name Freq PRN Reason Stop Dose Admin Amitriptyline HCl 25 mg 06/24/23 21:00 06/26/23 21:01 Amitriptyline 25 Mg Tablet PO 25 mg QPM MAY Administration Duloxetine HCl 60 mg 06/25/23 09:00 06/26/23 08:31 Duloxetine 60 Mg Capsule PO 60 mg DAILY MAY Administration Famotidine 20 mg 06/26/23 09:00 06/26/23 21:01 Famotidine 20 Mg Tablet PO 20 mg BID MAY Administration Pantoprazole Sodium 80 mg/ 100 mls @ 10 mls/hr 06/25/23 19:00 06/27/23 06:07 Sodium Chloride IV 10 mls/hr .Q10H MAY Administration Losartan Potassium 50 mg 06/25/23 09:00 06/26/23 08:31 Losartan 50 Mg Tablet PO 50 mg DAILY MAY Administration Oxycodone HCl 10 mg 06/24/23 10:31 06/27/23 04:26 Oxycodone 5 Mg Tablet PO 10 mg Q4HR PRN Administration PAIN OF 4-8 Polyethylene Glycol 17 gm 06/24/23 11:00 06/26/23 08:32 Polyethylene Glycol 3350 17 Gm Packet PO Not Given DAILY MAY Pregabalin 100 mg 06/24/23 21:00 06/26/23 21:00 Pregabalin 100 Mg Capsule PO 100 mg BID MAY Administration Pregabalin 50 mg 06/24/23 21:00 06/26/23 21:00 Pregabalin 25 Mg Capsule PO 50 mg BID MAY Administration Sodium Chloride 10 ml 06/24/23 09:00 06/27/23 00:17 Sodium Chloride Flush 0.9% 10 Ml Syringe IVP 10 ml 0100,0900,1700 MAY Administration Sucralfate 1 gm 06/26/23 07:00 06/27/23 06:10 Sucralfate 1 Gm/10 Ml Udc PO 1 gm 0700,1100,1600,2200 MAY Administration Trazodone HCl 100 mg 06/24/23 21:00 06/26/23 21:00 Trazodone 50 Mg Tablet PO 100 mg HS MAY Administration - Lab Result Fish Bone Diagrams: 06/27/23 15:10 06/27/23 05:05 - Additional Planning Condition/Complexity: Improved My Orders: My Active Orders 06/26/23 08:55 Transfuse RBCs Leukoreduced [RC] .ONCE 06/26/23 09:00 Famotidine [Pepcid] 20 mg PO BID 06/27/23 15:00 HEMOGLOBIN AND HEMATOCRIT [HEME] Timed 06/28/23 05:00 BMP - BASIC METABOLIC PANEL [CHEM] DAILYLAB CBC [CBC - COMP BLD CT W/AUTO DIFF] [HEME] DAILYLAB 06/29/23 05:00 BMP - BASIC METABOLIC PANEL [CHEM] DAILYLAB CBC [CBC - COMP BLD CT W/AUTO DIFF] [HEME] DAILYLAB 06/30/23 05:00 BMP - BASIC METABOLIC PANEL [CHEM] DAILYLAB CBC [CBC - COMP BLD CT W/AUTO DIFF] [HEME] DAILYLAB 07/01/23 05:00 BMP - BASIC METABOLIC PANEL [CHEM] DAILYLAB CBC [CBC - COMP BLD CT W/AUTO DIFF] [HEME] DAILYLAB Plan Discussed with:: Patient, Spouse Time Spent: 31-60 minutes Objective Vital Signs: Vital Signs - 24 hr 06/26/23 06/26/23 06/26/23 11:06 11:25 12:33 Temperature 36.7 C 37.3 C 36.4 C L Heart Rate [ 92 89 105 H Brachial] Respiratory 20 20 18 Rate Blood Pressure 135/75 H 119/69 [Right Brachial artery] Blood Pressure 150/78 H [Right Radial artery] O2 Saturation 95 95 95 If not protocol 2 2 : Oxygen Flow, liters/minute 06/26/23 06/26/23 06/26/23 14:15 14:17 14:41 Temperature 37.0 C 37 C 37.0 C Heart Rate [ 90 90 87 Brachial] Respiratory 20 20 20 Rate Blood Pressure 130/66 130/66 134/74 H [Right Brachial artery] Blood Pressure [Right Radial artery] O2 Saturation 96 96 95 If not protocol 2 2 2 : Oxygen Flow, liters/minute 06/26/23 06/26/23 06/26/23 14:58 16:00 17:48 Temperature 37.1 C 36.9 C 36.6 C Heart Rate [ 91 85 90 Brachial] Respiratory 20 16 18 Rate Blood Pressure 130/72 121/75 137/64 H [Right Brachial artery] Blood Pressure [Right Radial artery] O2 Saturation 95 96 95 If not protocol 2 2 2 : Oxygen Flow, liters/minute 06/26/23 06/27/23 06/27/23 20:17 00:22 04:57 Temperature 36.5 C 36.5 C 36.8 C Heart Rate [ 86 77 83 Brachial] Respiratory 14 16 16 Rate Blood Pressure 136/72 H 144/79 H 146/76 H [Right Brachial artery] Blood Pressure [Right Radial artery] O2 Saturation 96 97 99 If not protocol 2 2 2 : Oxygen Flow, liters/minute 06/27/23 08:00 Temperature 36.6 C Heart Rate [ 95 Brachial] Respiratory 20 Rate Blood Pressure 141/73 H [Right Brachial artery] Blood Pressure [Right Radial artery] O2 Saturation 94 If not protocol 2 : Oxygen Flow, liters/minute Oxygen O2 Source Nasal cannula I&O (Last 24 Hrs): Intake and Output Totals x24h 06/25/23 06/26/23 06/27/23 23:59 23:59 23:59 Intake Total 256.275 3914.000 100 Output Total 1450 300 Balance 981.500 644.000 -200 - Results Results: Laboratory Results WBC 9.6 x10^3/uL (4.8-10.8) 06/27/23 05:05 RBC 2.69 10^6/uL (4.70-6.10) L 06/27/23 05:05 Hgb 8.0 g/dL (14.0-18.0) L 06/27/23 05:05 Hct 26.1 % (42.0-52.0) L 06/27/23 05:05 MCV 97.0 fL (80.0-94.0) H 06/27/23 05:05 MCH 29.7 pg (27.0-31.0) 06/27/23 05:05 MCHC 30.7 g/dL (32.0-36.0) L 06/27/23 05:05 RDW 16.4 % (12.0-15.0) H 06/27/23 05:05 Plt Count 284 10^3/uL (130-450) 06/27/23 05:05 MPV 9.7 fL (7.4-11.4) 06/27/23 05:05 Neut # (Auto) 6.8 10^3/uL (1.5-6.6) H 06/27/23 05:05 Lymph # (Auto) 1.2 10^3/uL (1.5-3.5) L 06/27/23 05:05 [place] # (Auto) 1.0 10^3/uL (0.0-1.0) 06/27/23 05:05 Eos # (Auto) 0.2 10^3/uL (0.0-0.7) 06/27/23 05:05 Baso # (Auto) 0.0 10^3/uL (0.0-0.1) 06/27/23 05:05 Absolute Nucleated RBC 0.03 x10^3/uL 06/27/23 05:05 Total Counted 100 06/24/23 12:17 Band Neuts % (Manual) 1 % (0-10) 06/24/23 12:17 Abnorm Lymph % (Manual) 0 % 06/24/23 12:17 Metamyelocytes % 2 % (-0) H 06/24/23 12:17 Myelocytes % 2 % (-0) H 06/24/23 12:17 Nucleated RBC % 0.3 /100WBC 06/27/23 05:05 Neutrophils # (Manual) 16.4 10^3/uL (1.5-6.6) H 06/24/23 12:17 Lymphocytes # (Manual) 2.4 10^3/uL (1.5-3.5) 06/24/23 12:17 Monocytes # (Manual) 0.2 10^3/uL (0.0-1.0) 06/24/23 12:17 Eosinophils # (Manual) 0.0 10^3/uL (0-0.7) 06/24/23 12:17 Basophils # (Manual) 0.0 10^3/uL (0-0.1) 06/24/23 12:17 Differential Comment MANUAL DIFFERENTIAL 06/24/23 12:17 Manual Slide Review Indicated 06/24/23 12:17 WBC Morphology NORMAL APPEARANCE (NORMAL) 06/24/23 12:17 Platelet Estimate NORMAL (130-450,000) (NORMAL) 06/24/23 12:17 Platelet Morphology NORMAL MIGUEL (NORMAL) 06/24/23 12:17 RBC Morph Micro Appear 2+ HYPOCHROMASIA (NORMAL) 1+ ANISOCYTOSIS (NORMAL) 06/24/23 12:17 RBC Morph Micro Appear 2+ HYPOCHROMASIA (NORMAL) 1+ ANISOCYTOSIS (NORMAL) 06/24/23 12:17 PT 14.2 secs (9.9-12.6) H 06/25/23 05:36 INR 1.3 (0.8-1.2) H 06/25/23 05:36 APTT 25.7 secs (24.9-33.3) 06/25/23 05:36 VBG pH 7.463 (7.31-7.41) H 06/25/23 08:03 Ionized Calcium 1.07 mmol/L (1.15-1.33) L 06/25/23 08:03 Sodium 138 mmol/L (135-145) 06/27/23 05:05 Potassium 3.8 mmol/L (3.5-4.5) 06/27/23 05:05 Chloride 103 mmol/L (101-111) 06/27/23 05:05 Carbon Dioxide 31 mmol/L (21-32) 06/27/23 05:05 Anion Gap 4.0 (6-13) L 06/27/23 05:05 BUN 19 mg/dL (6-20) 06/27/23 05:05 Creatinine 0.8 mg/dL (0.6-1.3) 06/27/23 05:05 Estimated GFR (MDRD) 97 (>89) 06/27/23 05:05 Glucose 101 mg/dL (74-104) 06/27/23 05:05 Lactic Acid 1.5 mmol/L (0.5-2.2) 06/24/23 07:00 Calcium 8.3 mg/dL (8.5-10.3) L 06/27/23 05:05 Phosphorus 3.2 mg/dL (2.5-5.0) 06/25/23 05:36 Magnesium 2.3 mg/dL (1.7-2.3) 06/25/23 05:36 Total Bilirubin 0.3 mg/dL (0.2-1.0) 06/24/23 05:38 AST 14 IU/L (10-42) 06/24/23 05:38 ALT 14 IU/L (10-60) 06/24/23 05:38 Alkaline Phosphatase 52 IU/L (42-121) 06/24/23 05:38 Troponin I High Sens 11.6 ng/L (2.3-19.7) 06/24/23 05:38 Total Protein 5.1 g/dL (6.4-8.9) L 06/24/23 05:38 Albumin 2.9 g/dL (3.2-5.5) L 06/24/23 05:38 Globulin 2.2 g/dL (2.1-4.2) 06/24/23 05:38 Albumin/Globulin Ratio 1.3 (1.0-2.2) 06/24/23 05:38 Lipase < 10 U/L (11-82) L 06/24/23 05:38 Urine Color YELLOW 06/24/23 06:20 Urine Clarity CLEAR (CLEAR) 06/24/23 06:20 Urine pH 5.5 PH (5.0-7.5) 06/24/23 06:20 Ur Specific [place] 1.015 (1.002-1.030) 06/24/23 06:20 Urine Protein NEGATIVE mg/dL (NEGATIVE) 06/24/23 06:20 Urine Glucose (UA) NEGATIVE mg/dL (NEGATIVE) 06/24/23 06:20 Urine Ketones TRACE mg/dL (NEGATIVE) 06/24/23 06:20 Urine Occult Blood NEGATIVE (NEGATIVE) 06/24/23 06:20 Urine Nitrite NEGATIVE (NEGATIVE) 06/24/23 06:20 Urine Bilirubin NEGATIVE (NEGATIVE) 06/24/23 06:20 Urine Urobilinogen 0.2 (NORMAL) E.U./dL (NORMAL) 06/24/23 06:20 Ur Leukocyte Esterase NEGATIVE (NEGATIVE) 06/24/23 06:20 Ur Microscopic Review NOT INDICATED 06/24/23 06:20 Urine Culture Comments NOT INDICATED 06/24/23 06:20 Nasal Adenovirus (PCR) NOT DETECTED 06/24/23 06:14 Nasal B. parapertussis DNA (PCR) NOT DETECTED 06/24/23 06:14 Nasal Coronavir 229E PCR NOT DETECTED 06/24/23 06:14 Nasal Coronavir HKU1 PCR NOT DETECTED 06/24/23 06:14 Nasal Coronavir NL63 PCR NOT DETECTED 06/24/23 06:14 Nasal Coronavir OC43 PCR NOT DETECTED 06/24/23 06:14 Nasal Enterovir/Rhinovir PCR NOT DETECTED 06/24/23 06:14 Nasal Influenza B PCR NOT DETECTED 06/24/23 06:14 Nasal Influenza A PCR NOT DETECTED 06/24/23 06:14 Nasal Parainfluen 1 PCR NOT DETECTED 06/24/23 06:14 Nasal Parainfluen 2 PCR NOT DETECTED 06/24/23 06:14 Nasal Parainfluen 3 PCR NOT DETECTED 06/24/23 06:14 Nasal Parainfluen 4 PCR NOT DETECTED 06/24/23 06:14 Nasal RSV (PCR) NOT DETECTED 06/24/23 06:14 Nasal B.pertussis DNA PCR NOT DETECTED 06/24/23 06:14 Nasal C.pneumoniae (PCR) NOT DETECTED 06/24/23 06:14 Brent Human Metapneumo PCR NOT DETECTED 06/24/23 06:14 Nasal M.pneumoniae (PCR) NOT DETECTED 06/24/23 06:14 Nasal SARS-CoV-2 (PCR) NOT DETECTED 06/24/23 06:14 Stl Occult Blood (IFOB) POSITIVE (NEGATIVE) A 06/24/23 17:23 Blood Type O NEGATIVE 06/24/23 07:00 Blood Type Recheck O NEGATIVE 06/24/23 07:37 Antibody Screen NEGATIVE 06/24/23 07:00 Crossmatch IS Only See Detail 06/24/23 07:00 - Procedures Procedures: Procedures RESECTION OF LEFT ELBOW BURSA AND LIGAMENT, OPEN APPROACH (01/18/18) Sepsis Event Note (H) - Evaluation Current Stage of Sepsis: Ruled out ABX Reporting Has patient been on IV antibiotics over the past 48 hours?: No
--- NOTE | 2023-06-27 11:17 | XRAY Report ---
PROCEDURE: Chest 1V INDICATIONS: hypoxia TECHNIQUE: One view of the chest was acquired. COMPARISON: Radiograph 09/01/2021 FINDINGS: Surgical changes and devices: None. Lungs and pleura: No pleural effusions or pneumothorax. Lungs are clear. Mediastinum: Mediastinal contours appear normal. Heart size is normal. Bones and chest wall: No suspicious bony lesions. Overlying soft tissues appear unremarkable. Anne vated right hemidiaphragm, stable from prior. IMPRESSION: No acute cardiopulmonary process. Reviewed by: Jose Cantu MD on 06/27/2023 11:16 AM PST Approved by: Jose Cantu MD on 06/27/2023 11:16 AM PST Station ID: [id number]
--- NOTE | 2023-06-27 12:39 | CONSULTATION NOTE ---
Consultation Report: asked to place IV by Hospitalist. Skin localized with 1% lidocaine, 20G long IV placed under ultrasound guidance in left cephalic heath easily on first attempt. Patient tolerated well and very thankful. Line draws and flushed easily, secured above AC.
[2023-06-27] MEDS: PANTOPRAZOLE 40 MG VIAL IVP SCH (12:55)
[2023-06-27 15:16] LABS: HCT - HEMATOCRIT 26.2 % (42.0-52.0); HGB - HEMOGLOBIN 8.5 g/dL (14.0-18.0)
[2023-06-28 04:58] LABS: BASOPHILS % (AUTO) 0.3 %; EOSINOPHILS % (AUTO) 1.5 %; HCT - HEMATOCRIT 28.2 % (42.0-52.0); HGB - HEMOGLOBIN 8.7 g/dL (14.0-18.0); LYMPHOCYTES % (AUTO) 16.6 %; MEAN CORPUSCULAR HEMOGLOBIN 30.2 pg (27.0-31.0); MEAN CORPUSCULAR HGB CONC 30.9 g/dL (32.0-36.0); MEAN CORPUSCULAR VOLUME 97.9 fL (80.0-94.0); MEAN PLATELET VOLUME 9.3 fL (7.4-11.4); MONOCYTES % (AUTO) 8.2 %; NEUTROPHILS % (AUTO) 68.9 %; PLT - PLATELET COUNT 309 10^3/uL (130-450); RED BLOOD COUNT 2.88 10^6/uL (4.70-6.10); WHITE BLOOD COUNT 11.2 x10^3/uL (4.8-10.8)
[2023-06-28 05:03] LABS: ABNORMAL LYMPHS % (MANUAL) 0 %
[2023-06-28 05:18] LABS: CALCIUM 8.7 mg/dL (8.5-10.3); CREATININE 0.8 mg/dL (0.6-1.3); POTASSIUM 3.8 mmol/L (3.5-4.5)
[2023-06-28 05:36] LABS: BAND NEUTROPHILS % (MANUAL) 1 %; EOSINOPHILS # (MANUAL) 0.2 10^3/uL (0-0.7); LYMPHOCYTES # (MANUAL) 1.9 10^3/uL (1.5-3.5); LYMPHOCYTES % (MANUAL) 17 %; METAMYELOCYTES % (MANUAL) 1 %; MONOCYTES # (MANUAL) 0.9 10^3/uL (0.0-1.0); MYELOCYTES % (MANUAL) 1 %
[2023-06-28 05:38] LABS: DIFFERENTIAL COMMENT MANUAL DIFFERENTIAL
[2023-06-28] MEDS: PANTOPRAZOLE 40 MG TABLET PO SCH (08:09)
[2023-06-28] MEDS: ONDANSETRON ODT 4 MG TABLET TL PRN (08:57)
--- NOTE | 2023-06-28 11:39 | PROVIDER PROGRESS NOTE ---
Assessment/Plan - Problem List (1) Acute anemia Assessment/Plan: Improved, stable Hemoglobin 8.7 today However patient is not able to tolerate general diet No bowel movement yet Monitoring hemoglobin overnight to make sure no further GI loss Advance diet as tolerated (2) Iron deficiency Assessment/Plan: Related to GI blood loss May consider oral iron supplement once his GI symptoms improved (4) Abdominal pain Qualifiers: Abdominal location: generalized Qualified Code(s): R10.84 - Generalized abdominal pain Assessment/Plan: Improved, however complains of abdominal distention and a lot of gas Give simethicone (5) SOB (shortness of breath) on exertion Assessment/Plan: Still has shortness of breath on exertion, 1 L oxygen as needed to keep good oxygen saturation Appears to be a cardiac related symptom, plus anemia contributing to shortness of breath Echo performed, pending report - Current Meds Current Meds: Current Medications Generic Name Dose Route Start Last Admin Trade Name Freq PRN Reason Stop Dose Admin Amitriptyline HCl 25 mg 06/24/23 21:00 06/27/23 20:44 Amitriptyline 25 Mg Tablet PO 25 mg QPM MAY Administration Duloxetine HCl 60 mg 06/25/23 09:00 06/28/23 08:08 Duloxetine 60 Mg Capsule PO 60 mg DAILY MAY Administration Famotidine 20 mg 06/26/23 09:00 06/28/23 08:08 Famotidine 20 Mg Tablet PO 20 mg BID MAY Administration Losartan Potassium 50 mg 06/25/23 09:00 06/28/23 08:08 Losartan 50 Mg Tablet PO 50 mg DAILY MAY Administration Ondansetron HCl 4 mg 06/28/23 08:50 06/28/23 08:57 Ondansetron Odt 4 Mg Tablet TL 4 mg Q4HR PRN Administration Nausea / Vomiting Oxycodone HCl 10 mg 06/24/23 10:31 06/28/23 08:57 Oxycodone 5 Mg Tablet PO 10 mg Q4HR PRN Administration PAIN OF 4-8 Pantoprazole Sodium 40 mg 06/28/23 09:00 06/28/23 08:09 Pantoprazole 40 Mg Tablet PO 40 mg BID MAY Administration Polyethylene Glycol 17 gm 06/24/23 11:00 06/28/23 08:09 Polyethylene Glycol 3350 17 Gm Packet PO 17 gm DAILY MAY Administration Pregabalin 100 mg 06/24/23 21:00 06/28/23 08:08 Pregabalin 100 Mg Capsule PO 100 mg BID MAY Administration Pregabalin 50 mg 06/24/23 21:00 06/28/23 08:09 Pregabalin 25 Mg Capsule PO 50 mg BID MAY Administration Sodium Chloride 10 ml 06/24/23 09:00 06/28/23 08:09 Sodium Chloride Flush 0.9% 10 Ml Syringe IVP 10 ml 0100,0900,1700 MAY Administration Sucralfate 1 gm 06/26/23 07:00 06/28/23 10:59 Sucralfate 1 Gm/10 Ml Udc PO 1 gm 0700,1100,1600,2200 MAY Administration Trazodone HCl 100 mg 06/24/23 21:00 06/27/23 22:24 Trazodone 50 Mg Tablet PO 100 mg HS MAY Administration - Lab Result Fish Bone Diagrams: 06/28/23 04:47 06/28/23 04:47 - Diagnostic Imaging Results Diagnostic Imaging Results: Final report reviewed - Additional Planning Condition/Complexity: Improved My Orders: My Active Orders 06/27/23 15:42 Home Oxygen [RC] .ONCE 06/27/23 Dinner Soft (Low Fiber) Diet [DIET] 06/28/23 08:50 Ondansetron Odt [Zofran Odt] 4 mg TL Q4HR PRN 06/28/23 09:00 Pantoprazole [Protonix] 40 mg PO BID 06/29/23 05:00 BMP - BASIC METABOLIC PANEL [CHEM] DAILYLAB CBC [CBC - COMP BLD CT W/AUTO DIFF] [HEME] DAILYLAB 06/30/23 05:00 BMP - BASIC METABOLIC PANEL [CHEM] DAILYLAB CBC [CBC - COMP BLD CT W/AUTO DIFF] [HEME] DAILYLAB 07/01/23 05:00 BMP - BASIC METABOLIC PANEL [CHEM] DAILYLAB CBC [CBC - COMP BLD CT W/AUTO DIFF] [HEME] DAILYLAB Plan Discussed with:: Patient, Spouse Time Spent: 31-60 minutes Additional Planning Notes: Patient is not able to tolerate diet Echo is pending Anticipate discharge in 1 to 2 days once patient is able to eat well and having bowel movement Subjective - Subjective Patient Reports: Constipation, Shortness of Breath, Other (Feels nausea, unable to eat general diet yet) Objective Vital Signs: Vital Signs - 24 hr 06/27/23 06/27/23 06/27/23 12:01 15:58 20:27 Temperature 36.7 C 37.0 C 36.6 C Heart Rate [ 97 82 87 Brachial] Heart Rate [ Radial] Respiratory 20 16 14 Rate Blood Pressure 137/86 H 127/68 [Right Brachial artery] Blood Pressure 122/59 L [Right Radial artery] O2 Saturation 93 94 96 If not protocol 1 : Oxygen Flow, liters/minute 06/27/23 06/28/23 06/28/23 23:22 04:50 07:43 Temperature 36.6 C 36.6 C 36.5 C Heart Rate [ 93 87 Brachial] Heart Rate [ 100 Radial] Respiratory 18 16 18 Rate Blood Pressure [Right Brachial artery] Blood Pressure 150/91 H 159/86 H 157/96 H [Right Radial artery] O2 Saturation 95 96 94 If not protocol 1 1 : Oxygen Flow, liters/minute Oxygen O2 Source Room air I&O (Last 24 Hrs): Intake and Output Totals x24h 06/26/23 06/27/23 06/28/23 23:59 23:59 23:59 Intake Total 2094.000 1158 480 Output Total 1450 600 320 Balance 644.000 558 160 General: Oriented x3 HEENT: PERRLA, EOMI Neck: Supple Neuro: Alert, Non Focal Cardiovascular: Regular rate Respiratory: Chest non-tender Abdomen: Normal bowel sounds, Soft, Other (Distended, no tender on palpation) Extremities: No clubbing, No edema Skin: No rashes - Results Results: Laboratory Results WBC 11.2 x10^3/uL (4.8-10.8) H 06/28/23 04:47 RBC 2.88 10^6/uL (4.70-6.10) L 06/28/23 04:47 Hgb 8.7 g/dL (14.0-18.0) L 06/28/23 04:47 Hct 28.2 % (42.0-52.0) L 06/28/23 04:47 MCV 97.9 fL (80.0-94.0) H 06/28/23 04:47 MCH 30.2 pg (27.0-31.0) 06/28/23 04:47 MCHC 30.9 g/dL (32.0-36.0) L 06/28/23 04:47 RDW 16.0 % (12.0-15.0) H 06/28/23 04:47 Plt Count 309 10^3/uL (130-450) 06/28/23 04:47 MPV 9.3 fL (7.4-11.4) 06/28/23 04:47 Neut # (Auto) Not Reportable 06/28/23 04:47 Lymph # (Auto) Not Reportable 06/28/23 04:47 [place] # (Auto) Not Reportable 06/28/23 04:47 Eos # (Auto) Not Reportable 06/28/23 04:47 Baso # (Auto) Not Reportable 06/28/23 04:47 Absolute Nucleated RBC Not Reportable 06/28/23 04:47 Total Counted 100 06/28/23 04:47 Band Neuts % (Manual) 1 % (0-10) 06/28/23 04:47 Abnorm Lymph % (Manual) 0 % 06/28/23 04:47 Metamyelocytes % 1 % (-0) H 06/28/23 04:47 Myelocytes % 1 % (-0) H 06/28/23 04:47 Nucleated RBC % Not Reportable 06/28/23 04:47 Neutrophils # (Manual) 8.0 10^3/uL (1.5-6.6) H 06/28/23 04:47 Lymphocytes # (Manual) 1.9 10^3/uL (1.5-3.5) 06/28/23 04:47 Monocytes # (Manual) 0.9 10^3/uL (0.0-1.0) 06/28/23 04:47 Eosinophils # (Manual) 0.2 10^3/uL (0-0.7) 06/28/23 04:47 Basophils # (Manual) 0.0 10^3/uL (0-0.1) 06/28/23 04:47 Differential Comment MANUAL DIFFERENTIAL 06/28/23 04:47 Manual Slide Review Indicated 06/24/23 12:17 WBC Morphology NORMAL APPEARANCE (NORMAL) 06/24/23 12:17 Platelet Estimate NORMAL (130-450,000) (NORMAL) 06/24/23 12:17 Platelet Morphology NORMAL MIGUEL (NORMAL) 06/24/23 12:17 RBC Morph Micro Appear 2+ ANISOCYTOSIS (NORMAL) 1+ HYPOCHROMASIA (NORMAL) 1+ MICROCYTOSIS (NORMAL) 1+ POLYCHROMASIA (NORMAL) 06/28/23 04:47 RBC Morph Micro Appear 2+ ANISOCYTOSIS (NORMAL) 1+ HYPOCHROMASIA (NORMAL) 1+ MICROCYTOSIS (NORMAL) 1+ POLYCHROMASIA (NORMAL) 06/28/23 04:47 RBC Morph Micro Appear 2+ ANISOCYTOSIS (NORMAL) 1+ HYPOCHROMASIA (NORMAL) 1+ MICROCYTOSIS (NORMAL) 1+ POLYCHROMASIA (NORMAL) 06/28/23 04:47 RBC Morph Micro Appear 2+ ANISOCYTOSIS (NORMAL) 1+ HYPOCHROMASIA (NORMAL) 1+ MICROCYTOSIS (NORMAL) 1+ POLYCHROMASIA (NORMAL) 06/28/23 04:47 PT 14.2 secs (9.9-12.6) H 06/25/23 05:36 INR 1.3 (0.8-1.2) H 06/25/23 05:36 APTT 25.7 secs (24.9-33.3) 06/25/23 05:36 VBG pH 7.463 (7.31-7.41) H 06/25/23 08:03 Ionized Calcium 1.07 mmol/L (1.15-1.33) L 06/25/23 08:03 Sodium 138 mmol/L (135-145) 06/28/23 04:47 Potassium 3.8 mmol/L (3.5-4.5) 06/28/23 04:47 Chloride 102 mmol/L (101-111) 06/28/23 04:47 Carbon Dioxide 33 mmol/L (21-32) H 06/28/23 04:47 Anion Gap 3.0 (6-13) L 06/28/23 04:47 BUN 18 mg/dL (6-20) 06/28/23 04:47 Creatinine 0.8 mg/dL (0.6-1.3) 06/28/23 04:47 Estimated GFR (MDRD) 97 (>89) 06/28/23 04:47 Glucose 111 mg/dL (74-104) H 06/28/23 04:47 Lactic Acid 1.5 mmol/L (0.5-2.2) 06/24/23 07:00 Calcium 8.7 mg/dL (8.5-10.3) 06/28/23 04:47 Phosphorus 3.2 mg/dL (2.5-5.0) 06/25/23 05:36 Magnesium 2.3 mg/dL (1.7-2.3) 06/25/23 05:36 Total Bilirubin 0.3 mg/dL (0.2-1.0) 06/24/23 05:38 AST 14 IU/L (10-42) 06/24/23 05:38 ALT 14 IU/L (10-60) 06/24/23 05:38 Alkaline Phosphatase 52 IU/L (42-121) 06/24/23 05:38 Troponin I High Sens 11.6 ng/L (2.3-19.7) 06/24/23 05:38 B-Natriuretic Peptide 26 pg/mL (5-100) 06/27/23 05:05 Total Protein 5.1 g/dL (6.4-8.9) L 06/24/23 05:38 Albumin 2.9 g/dL (3.2-5.5) L 06/24/23 05:38 Globulin 2.2 g/dL (2.1-4.2) 06/24/23 05:38 Albumin/Globulin Ratio 1.3 (1.0-2.2) 06/24/23 05:38 Lipase < 10 U/L (11-82) L 06/24/23 05:38 Urine Color YELLOW 06/24/23 06:20 Urine Clarity CLEAR (CLEAR) 06/24/23 06:20 Urine pH 5.5 PH (5.0-7.5) 06/24/23 06:20 Ur Specific [place] 1.015 (1.002-1.030) 06/24/23 06:20 Urine Protein NEGATIVE mg/dL (NEGATIVE) 06/24/23 06:20 Urine Glucose (UA) NEGATIVE mg/dL (NEGATIVE) 06/24/23 06:20 Urine Ketones TRACE mg/dL (NEGATIVE) 06/24/23 06:20 Urine Occult Blood NEGATIVE (NEGATIVE) 06/24/23 06:20 Urine Nitrite NEGATIVE (NEGATIVE) 06/24/23 06:20 Urine Bilirubin NEGATIVE (NEGATIVE) 06/24/23 06:20 Urine Urobilinogen 0.2 (NORMAL) E.U./dL (NORMAL) 06/24/23 06:20 Ur Leukocyte Esterase NEGATIVE (NEGATIVE) 06/24/23 06:20 Ur Microscopic Review NOT INDICATED 06/24/23 06:20 Urine Culture Comments NOT INDICATED 06/24/23 06:20 Nasal Adenovirus (PCR) NOT DETECTED 06/24/23 06:14 Nasal B. parapertussis DNA (PCR) NOT DETECTED 06/24/23 06:14 Nasal Coronavir 229E PCR NOT DETECTED 06/24/23 06:14 Nasal Coronavir HKU1 PCR NOT DETECTED 06/24/23 06:14 Nasal Coronavir NL63 PCR NOT DETECTED 06/24/23 06:14 Nasal Coronavir OC43 PCR NOT DETECTED 06/24/23 06:14 Nasal Enterovir/Rhinovir PCR NOT DETECTED 06/24/23 06:14 Nasal Influenza B PCR NOT DETECTED 06/24/23 06:14 Nasal Influenza A PCR NOT DETECTED 06/24/23 06:14 Nasal Parainfluen 1 PCR NOT DETECTED 06/24/23 06:14 Nasal Parainfluen 2 PCR NOT DETECTED 06/24/23 06:14 Nasal Parainfluen 3 PCR NOT DETECTED 06/24/23 06:14 Nasal Parainfluen 4 PCR NOT DETECTED 06/24/23 06:14 Nasal RSV (PCR) NOT DETECTED 06/24/23 06:14 Nasal B.pertussis DNA PCR NOT DETECTED 06/24/23 06:14 Nasal C.pneumoniae (PCR) NOT DETECTED 06/24/23 06:14 [place] Human Metapneumo PCR NOT DETECTED 06/24/23 06:14 Nasal M.pneumoniae (PCR) NOT DETECTED 06/24/23 06:14 Nasal SARS-CoV-2 (PCR) NOT DETECTED 06/24/23 06:14 Stl Occult Blood (IFOB) POSITIVE (NEGATIVE) A 06/24/23 17:23 Blood Type O NEGATIVE 06/24/23 07:00 Blood Type Recheck O NEGATIVE 06/24/23 07:37 Antibody Screen NEGATIVE 06/24/23 07:00 Crossmatch IS Only See Detail 06/24/23 07:00 - Procedures Procedures: Procedures RESECTION OF LEFT ELBOW BURSA AND LIGAMENT, OPEN APPROACH (01/18/18) Sepsis Event Note (H) - Evaluation Current Stage of Sepsis: Ruled out ABX Reporting Has patient been on IV antibiotics over the past 48 hours?: No
[2023-06-28] MEDS: LACTULOSE 10 GM /15 ML UDC PO SCH (12:20)
[2023-06-28] MEDS: MAG HYDROX/AL HYDROX/SIMETH 30 ML UDC PO SCH (14:44)
[2023-06-28] MEDS: traMADol 50 MG TABLET PO PRN (20:00)
[2023-06-29 06:11] LABS: BASOPHILS % (AUTO) 0.3 %; EOSINOPHILS % (AUTO) 1.9 %; HGB - HEMOGLOBIN 7.5 g/dL (14.0-18.0); MEAN CORPUSCULAR HGB CONC 31.3 g/dL (32.0-36.0); MEAN PLATELET VOLUME 9.3 fL (7.4-11.4); MONOCYTES % (AUTO) 9.4 %; NEUTROPHILS % (AUTO) 68.7 %; PLT - PLATELET COUNT 319 10^3/uL (130-450); RED CELL DISTRIBUTION WIDTH 15.9 % (12.0-15.0); WHITE BLOOD COUNT 11.4 x10^3/uL (4.8-10.8)
[2023-06-29 06:15] LABS: ABNORMAL LYMPHS % (MANUAL) 0 %; SLIDE REVIEW? Indicated
[2023-06-29 06:28] LABS: CALCIUM 8.5 mg/dL (8.5-10.3); CREATININE 0.8 mg/dL (0.6-1.3); POTASSIUM 3.8 mmol/L (3.5-4.5)
[2023-06-29 07:09] LABS: BAND NEUTROPHILS % (MANUAL) 1 %; DIFFERENTIAL COMMENT MANUAL DIFFERENTIAL; LYMPHOCYTES # (MANUAL) 1.5 10^3/uL (1.5-3.5); LYMPHOCYTES % (MANUAL) 11 %; METAMYELOCYTES % (MANUAL) 1 %; MONOCYTES # (MANUAL) 0.8 10^3/uL (0.0-1.0); RBC MORPHOLOGY (MULTIPLE) 3+ ANISOCYTOSIS (NORMAL); REACTIVE LYMPHS % (MANUAL) 2 %
[2023-06-29] MEDS: SENNA 8.6 MG TABLET PO SCH (08:11)
[2023-06-29] MEDS: METOCLOPRAMIDE 10 MG TABLET PO SCH (08:17)
--- NOTE | 2023-06-29 12:38 | PROVIDER PROGRESS NOTE ---
Assessment/Plan - Problem List (1) Acute anemia Assessment/Plan: Stable Hemoglobin 7.8 in the morning comparing to 8.5 yesterday Repeat hemoglobin in p.m. showed 7.7 Patient had bowel movement in the morning appears normal color (2) Iron deficiency Assessment/Plan: Give IV iron 1 dose (3) ROSE MARY on CPAP Assessment/Plan: Use home CPAP machine (4) Abdominal pain Qualifiers: Abdominal location: generalized Qualified Code(s): R10.84 - Generalized abdominal pain Assessment/Plan: Improved, after the bowel movement Able to tolerate more diet (5) SOB (shortness of breath) on exertion Assessment/Plan: May be related to anemia Echo performed showed EF 60 to 65%, no valvular disease Off oxygen, able to walk about - Current Meds Current Meds: Current Medications Generic Name Dose Route Start Last Admin Trade Name Freq PRN Reason Stop Dose Admin Al Hydroxide/Mg Hydroxide 30 ml 06/28/23 14:00 06/29/23 06:13 Mag Hydrox/Al Hydrox/Simeth 30 Ml Udc PO 30 ml TID MAY Administration Amitriptyline HCl 25 mg 06/24/23 21:00 06/28/23 22:10 Amitriptyline 25 Mg Tablet PO 25 mg QPM MAY Administration Duloxetine HCl 60 mg 06/25/23 09:00 06/29/23 08:11 Duloxetine 60 Mg Capsule PO 60 mg DAILY MAY Administration Lactulose 10 gm 06/28/23 12:00 06/29/23 08:11 Lactulose 10 Gm /15 Ml Udc PO 10 gm DAILY MAY Administration Losartan Potassium 50 mg 06/25/23 09:00 06/29/23 08:11 Losartan 50 Mg Tablet PO 50 mg DAILY MAY Administration Metoclopramide HCl 10 mg 06/29/23 08:00 06/29/23 10:55 Metoclopramide 10 Mg Tablet PO 06/29/23 16:01 10 mg ACHS MAY Administration Ondansetron HCl 4 mg 06/28/23 08:50 06/28/23 22:05 Ondansetron Odt 4 Mg Tablet TL 4 mg Q4HR PRN Administration Nausea / Vomiting Oxycodone HCl 10 mg 06/24/23 10:31 06/29/23 09:10 Oxycodone 5 Mg Tablet PO 10 mg Q4HR PRN Administration PAIN OF 4-8 Pantoprazole Sodium 40 mg 06/28/23 09:00 06/29/23 08:11 Pantoprazole 40 Mg Tablet PO 40 mg BID MAY Administration Polyethylene Glycol 17 gm 06/24/23 11:00 06/29/23 08:10 Polyethylene Glycol 3350 17 Gm Packet PO 17 gm DAILY MAY Administration Pregabalin 100 mg 06/24/23 21:00 06/29/23 08:11 Pregabalin 100 Mg Capsule PO 100 mg BID MAY Administration Pregabalin 50 mg 06/24/23 21:00 06/29/23 08:11 Pregabalin 25 Mg Capsule PO 50 mg BID MAY Administration Senna 8.6 mg 06/29/23 09:00 06/29/23 08:11 Senna 8.6 Mg Tablet PO 8.6 mg DAILY MAY Administration Sodium Chloride 10 ml 06/24/23 09:00 06/29/23 09:12 Sodium Chloride Flush 0.9% 10 Ml Syringe IVP 10 ml 0100,0900,1700 MAY Administration Sucralfate 1 gm 06/26/23 07:00 06/29/23 10:53 Sucralfate 1 Gm/10 Ml Udc PO 1 gm 0700,1100,1600,2200 MAY Administration Tramadol HCl 50 mg 06/28/23 18:12 06/29/23 06:18 Tramadol 50 Mg Tablet PO 50 mg Q4HR PRN Administration Moderate Pain (Level 4-6) Trazodone HCl 100 mg 06/24/23 21:00 06/28/23 22:05 Trazodone 50 Mg Tablet PO 100 mg HS MAY Administration - Lab Result Fish Bone Diagrams: 06/29/23 15:15 06/29/23 06:00 - Additional Planning Condition/Complexity: Improved My Orders: My Active Orders 06/28/23 12:00 Lactulose [Enulose] 10 gm PO DAILY 06/28/23 14:00 Mag Hydrox/Al Hydrox/Simeth [Mylanta Plus] 30 ml PO TID 06/28/23 18:12 traMADol [Ultram] 50 mg PO Q4HR PRN 06/29/23 08:00 Metoclopramide [Reglan] 10 mg PO ACHS 06/29/23 09:00 Senna [Senokot] 8.6 mg PO DAILY 06/29/23 10:53 Nutrition Consult [CONS] Routine 06/29/23 15:00 HEMOGLOBIN AND HEMATOCRIT [HEME] Timed 06/30/23 05:00 BMP - BASIC METABOLIC PANEL [CHEM] DAILYLAB CBC [CBC - COMP BLD CT W/AUTO DIFF] [HEME] DAILYLAB 07/01/23 05:00 BMP - BASIC METABOLIC PANEL [CHEM] DAILYLAB CBC [CBC - COMP BLD CT W/AUTO DIFF] [HEME] DAILYLAB Plan Discussed with:: Patient, Spouse Time Spent: 31-60 minutes Additional Planning Notes: If hemoglobin still stable may be discharged tomorrow Subjective - Subjective Patient Reports: Feeling Better (Still feels very weak, abdominal discomfort noted from some food), Constipation Objective Vital Signs: Vital Signs - 24 hr 06/28/23 06/28/23 06/28/23 14:50 14:52 15:42 Temperature 36.8 C Heart Rate [ Brachial] Heart Rate [ 91 Radial] Heart Rate [ 97 97 Sitting] Heart Rate [ 104 H 104 H Standing] Respiratory 16 Rate Blood Pressure 140/84 H [Right Radial artery] Blood Pressure 162/99 H 162/99 H [Sitting] Blood Pressure 162/110 H 162/110 H [Standing] O2 Saturation 92 06/28/23 06/28/23 06/29/23 20:01 23:36 04:39 Temperature 36.5 C 36.6 C 36.7 C Heart Rate [ 100 92 Brachial] Heart Rate [ 97 Radial] Heart Rate [ Sitting] Heart Rate [ Standing] Respiratory 20 20 16 Rate Blood Pressure 143/76 H 116/72 157/80 H [Right Radial artery] Blood Pressure [Sitting] Blood Pressure [Standing] O2 Saturation 92 93 94 06/29/23 06/29/23 08:17 12:10 Temperature 37.1 C 36.8 C Heart Rate [ 81 91 Brachial] Heart Rate [ Radial] Heart Rate [ Sitting] Heart Rate [ Standing] Respiratory 20 20 Rate Blood Pressure 143/83 H 154/86 H [Right Radial artery] Blood Pressure [Sitting] Blood Pressure [Standing] O2 Saturation 94 91 L Oxygen O2 Source Room air I&O (Last 24 Hrs): Intake and Output Totals x24h 06/27/23 06/28/23 06/29/23 23:59 23:59 23:59 Intake Total 1158 1300 480 Output Total 600 620 400 Balance 558 680 80 General: Alert, Oriented x3, Cooperative, Other (Chronic ill appearance) HEENT: PERRLA, EOMI Neck: Supple, No JVD Neuro: Alert, Non Focal Cardiovascular: Regular rate Respiratory: Chest non-tender, No respiratory distress Abdomen: Normal bowel sounds, Soft Extremities: No clubbing, No edema Comments/Notes: Skin bruises from IV has been improved - Results Results: Laboratory Results WBC 11.4 x10^3/uL (4.8-10.8) H 06/29/23 06:00 RBC 2.50 10^6/uL (4.70-6.10) L 06/29/23 06:00 Hgb 7.5 g/dL (14.0-18.0) L 06/29/23 06:00 Hct 24.0 % (42.0-52.0) L 06/29/23 06:00 MCV 96.0 fL (80.0-94.0) H 06/29/23 06:00 MCH 30.0 pg (27.0-31.0) 06/29/23 06:00 MCHC 31.3 g/dL (32.0-36.0) L 06/29/23 06:00 RDW 15.9 % (12.0-15.0) H 06/29/23 06:00 Plt Count 319 10^3/uL (130-450) 06/29/23 06:00 MPV 9.3 fL (7.4-11.4) 06/29/23 06:00 Neut # (Auto) Not Reportable 06/29/23 06:00 Lymph # (Auto) Not Reportable 06/29/23 06:00 [place] # (Auto) Not Reportable 06/29/23 06:00 Eos # (Auto) Not Reportable 06/29/23 06:00 Baso # (Auto) Not Reportable 06/29/23 06:00 Absolute Nucleated RBC Not Reportable 06/29/23 06:00 Total Counted 100 06/29/23 06:00 Band Neuts % (Manual) 1 % (0-10) 06/29/23 06:00 Reactive Lymphs % (Man) 2 % 06/29/23 06:00 Abnorm Lymph % (Manual) 0 % 06/29/23 06:00 Metamyelocytes % 1 % (-0) H 06/29/23 06:00 Myelocytes % 1 % (-0) H 06/28/23 04:47 Nucleated RBC % Not Reportable 06/29/23 06:00 Neutrophils # (Manual) 9.0 10^3/uL (1.5-6.6) H 06/29/23 06:00 Lymphocytes # (Manual) 1.5 10^3/uL (1.5-3.5) 06/29/23 06:00 Monocytes # (Manual) 0.8 10^3/uL (0.0-1.0) 06/29/23 06:00 Eosinophils # (Manual) 0.0 10^3/uL (0-0.7) 06/29/23 06:00 Basophils # (Manual) 0.0 10^3/uL (0-0.1) 06/29/23 06:00 Differential Comment MANUAL DIFFERENTIAL 06/29/23 06:00 Manual Slide Review Indicated 06/29/23 06:00 WBC Morphology NORMAL APPEARANCE (NORMAL) 06/24/23 12:17 Platelet Estimate NORMAL (130-450,000) (NORMAL) 06/24/23 12:17 Platelet Morphology NORMAL MIGUEL (NORMAL) 06/24/23 12:17 RBC Morph Micro Appear 3+ ANISOCYTOSIS (NORMAL) 06/29/23 06:00 PT 14.2 secs (9.9-12.6) H 06/25/23 05:36 INR 1.3 (0.8-1.2) H 06/25/23 05:36 APTT 25.7 secs (24.9-33.3) 06/25/23 05:36 VBG pH 7.463 (7.31-7.41) H 06/25/23 08:03 Ionized Calcium 1.07 mmol/L (1.15-1.33) L 06/25/23 08:03 Sodium 139 mmol/L (135-145) 06/29/23 06:00 Potassium 3.8 mmol/L (3.5-4.5) 06/29/23 06:00 Chloride 103 mmol/L (101-111) 06/29/23 06:00 Carbon Dioxide 32 mmol/L (21-32) 06/29/23 06:00 Anion Gap 4.0 (6-13) L 06/29/23 06:00 BUN 21 mg/dL (6-20) H 06/29/23 06:00 Creatinine 0.8 mg/dL (0.6-1.3) 06/29/23 06:00 Estimated GFR (MDRD) 97 (>89) 06/29/23 06:00 Glucose 111 mg/dL (74-104) H 06/29/23 06:00 Lactic Acid 1.5 mmol/L (0.5-2.2) 06/24/23 07:00 Calcium 8.5 mg/dL (8.5-10.3) 06/29/23 06:00 Phosphorus 3.2 mg/dL (2.5-5.0) 06/25/23 05:36 Magnesium 2.3 mg/dL (1.7-2.3) 06/25/23 05:36 Total Bilirubin 0.3 mg/dL (0.2-1.0) 06/24/23 05:38 AST 14 IU/L (10-42) 06/24/23 05:38 ALT 14 IU/L (10-60) 06/24/23 05:38 Alkaline Phosphatase 52 IU/L (42-121) 06/24/23 05:38 Troponin I High Sens 11.6 ng/L (2.3-19.7) 06/24/23 05:38 B-Natriuretic Peptide 26 pg/mL (5-100) 06/27/23 05:05 Total Protein 5.1 g/dL (6.4-8.9) L 06/24/23 05:38 Albumin 2.9 g/dL (3.2-5.5) L 06/24/23 05:38 Globulin 2.2 g/dL (2.1-4.2) 06/24/23 05:38 Albumin/Globulin Ratio 1.3 (1.0-2.2) 06/24/23 05:38 Lipase < 10 U/L (11-82) L 06/24/23 05:38 Urine Color YELLOW 06/24/23 06:20 Urine Clarity CLEAR (CLEAR) 06/24/23 06:20 Urine pH 5.5 PH (5.0-7.5) 06/24/23 06:20 Ur Specific [place] 1.015 (1.002-1.030) 06/24/23 06:20 Urine Protein NEGATIVE mg/dL (NEGATIVE) 06/24/23 06:20 Urine Glucose (UA) NEGATIVE mg/dL (NEGATIVE) 06/24/23 06:20 Urine Ketones TRACE mg/dL (NEGATIVE) 06/24/23 06:20 Urine Occult Blood NEGATIVE (NEGATIVE) 06/24/23 06:20 Urine Nitrite NEGATIVE (NEGATIVE) 06/24/23 06:20 Urine Bilirubin NEGATIVE (NEGATIVE) 06/24/23 06:20 Urine Urobilinogen 0.2 (NORMAL) E.U./dL (NORMAL) 06/24/23 06:20 Ur Leukocyte Esterase NEGATIVE (NEGATIVE) 06/24/23 06:20 Ur Microscopic Review NOT INDICATED 06/24/23 06:20 Urine Culture Comments NOT INDICATED 06/24/23 06:20 Nasal Adenovirus (PCR) NOT DETECTED 06/24/23 06:14 Nasal B. parapertussis DNA (PCR) NOT DETECTED 06/24/23 06:14 Nasal Coronavir 229E PCR NOT DETECTED 06/24/23 06:14 Nasal Coronavir HKU1 PCR NOT DETECTED 06/24/23 06:14 Nasal Coronavir NL63 PCR NOT DETECTED 06/24/23 06:14 Nasal Coronavir OC43 PCR NOT DETECTED 06/24/23 06:14 Nasal Enterovir/Rhinovir PCR NOT DETECTED 06/24/23 06:14 Nasal Influenza B PCR NOT DETECTED 06/24/23 06:14 Nasal Influenza A PCR NOT DETECTED 06/24/23 06:14 Nasal Parainfluen 1 PCR NOT DETECTED 06/24/23 06:14 Nasal Parainfluen 2 PCR NOT DETECTED 06/24/23 06:14 Nasal Parainfluen 3 PCR NOT DETECTED 06/24/23 06:14 Nasal Parainfluen 4 PCR NOT DETECTED 06/24/23 06:14 Nasal RSV (PCR) NOT DETECTED 06/24/23 06:14 Nasal B.pertussis DNA PCR NOT DETECTED 06/24/23 06:14 Nasal C.pneumoniae (PCR) NOT DETECTED 06/24/23 06:14 [place] Human Metapneumo PCR NOT DETECTED 06/24/23 06:14 Nasal M.pneumoniae (PCR) NOT DETECTED 06/24/23 06:14 Nasal SARS-CoV-2 (PCR) NOT DETECTED 06/24/23 06:14 Stl Occult Blood (IFOB) POSITIVE (NEGATIVE) A 06/24/23 17:23 Blood Type O NEGATIVE 06/24/23 07:00 Blood Type Recheck O NEGATIVE 06/24/23 07:37 Antibody Screen NEGATIVE 06/24/23 07:00 Crossmatch IS Only See Detail 06/24/23 07:00 - Procedures Procedures: Procedures RESECTION OF LEFT ELBOW BURSA AND LIGAMENT, OPEN APPROACH (01/18/18) Sepsis Event Note (H) - Evaluation Current Stage of Sepsis: Ruled out ABX Reporting Has patient been on IV antibiotics over the past 48 hours?: No
[2023-06-29] MEDS ORDERED: MIN OIL/DIMETHICON/COCONUT OIL 92 GM TUBE TOP PRN ×2 (14:51→15:06)
[2023-06-29 15:28] LABS: HCT - HEMATOCRIT 24.9 % (42.0-52.0); HGB - HEMOGLOBIN 7.7 g/dL (14.0-18.0)
--- NOTE | 2023-06-29 15:52 | XRAY Report ---
PROCEDURE: Abdomen 1 V INDICATIONS: constipation TECHNIQUE: One view of the abdomen acquired. COMPARISON: None. FINDINGS: This is a markedly limited study given large patient body habitus. Surgical changes and devices: None. Bowel: Bowel gas pattern is normal. Colon appears gas-filled. No findings to suggest constipation. Soft tissues: No suspicious abdominal calcifications. Visualized solid organ contours appear normal in size. Bones: No suspicious bony lesions. IMPRESSION: Markedly limited study. No discrete radiographic abnormalities where visualized. Reviewed by: Mariah Cali MD on 06/29/2023 3:51 PM PST Approved by: Mariah Cali MD on 06/29/2023 3:51 PM PST Station ID: [id number]
[2023-06-29] MEDS: FERRIC GLUCONATE 125 MG in SODIUM CHLORIDE 0.9% 100ML 100 ML IV ONE (17:19)
[2023-06-29] MEDS: SODIUM CHLORIDE FLUSH 0.9% 10 ML SYRINGE IVP PRN (23:55)
[2023-06-30 06:03] LABS: BASOPHILS % (AUTO) 0.3 %; EOSINOPHILS # (AUTO) 0.3 10^3/uL (0.0-0.7); EOSINOPHILS % (AUTO) 2.4 %; HCT - HEMATOCRIT 23.8 % (42.0-52.0); HGB - HEMOGLOBIN 7.4 g/dL (14.0-18.0); LYMPHOCYTES % (AUTO) 16.7 %; MEAN CORPUSCULAR HEMOGLOBIN 30.3 pg (27.0-31.0); MEAN CORPUSCULAR HGB CONC 31.1 g/dL (32.0-36.0); MEAN CORPUSCULAR VOLUME 97.5 fL (80.0-94.0); MEAN PLATELET VOLUME 9.5 fL (7.4-11.4); MONOCYTES # (AUTO) 1.1 10^3/uL (0.0-1.0); MONOCYTES % (AUTO) 9.2 %; NEUTROPHILS # (AUTO) 7.8 10^3/uL (1.5-6.6); NEUTROPHILS % (AUTO) 66.9 %; NRBC ABSOLUTE COUNT (AUTO) 0.05 x10^3/uL; NUCLEATED RED BLOOD CELLS AUTO 0.4 /100WBC; PLT - PLATELET COUNT 321 10^3/uL (130-450); RED BLOOD COUNT 2.44 10^6/uL (4.70-6.10); RED CELL DISTRIBUTION WIDTH 15.5 % (12.0-15.0); WHITE BLOOD COUNT 11.7 x10^3/uL (4.8-10.8)
[2023-06-30 06:27] LABS: CALCIUM 8.6 mg/dL (8.5-10.3); CREATININE 0.9 mg/dL (0.6-1.3); POTASSIUM 3.8 mmol/L (3.5-4.5)
[2023-06-30 07:31] LABS: DIFFERENTIAL COMMENT MANUAL=AUTO DIFF; PLATELET ESTIMATE, MANUAL NORMAL (130-450,000) (NORMAL); PLATELET MORPHOLOGY RARE GIANT PLATELETS (NORMAL); RBC MORPHOLOGY (MULTIPLE) NORMAL APPEARANCE (NORMAL); WBC MORPHOLOGY (MULTIPLE) NORMAL APPEARANCE (NORMAL)
--- NOTE | 2023-06-30 08:58 | PROVIDER PROGRESS NOTE ---
Assessment/Plan - Problem List (1) Acute anemia Assessment/Plan: Not improved Hemoglobin 7.4 today, patient feels weak and shortness of breath appears pale Give 1 PRBC today Follow-up CBC tomorrow a.m. Continue Protonix twice a day and Carafate 4 times a day (2) Iron deficiency Assessment/Plan: Received 1 dose of IV iron on 06/29/2023 (3) ROSE MARY on CPAP Assessment/Plan: Use at night CPAP (4) Abdominal pain Qualifiers: Abdominal location: generalized Qualified Code(s): R10.84 - Generalized abdominal pain (5) SOB (shortness of breath) on exertion Assessment/Plan: Likely combination of anemia, poor endurance of overall condition Oxygen treatment as needed - Current Meds Current Meds: Current Medications Generic Name Dose Route Start Last Admin Trade Name Freq PRN Reason Stop Dose Admin Al Hydroxide/Mg Hydroxide 30 ml 06/28/23 14:00 06/30/23 05:34 Mag Hydrox/Al Hydrox/Simeth 30 Ml Udc PO 30 ml TID MAY Administration Amitriptyline HCl 25 mg 06/24/23 21:00 06/29/23 21:08 Amitriptyline 25 Mg Tablet PO 25 mg QPM MAY Administration Duloxetine HCl 60 mg 06/25/23 09:00 06/30/23 08:33 Duloxetine 60 Mg Capsule PO 60 mg DAILY MAY Administration Lactulose 10 gm 06/28/23 12:00 06/30/23 08:32 Lactulose 10 Gm /15 Ml Udc PO 10 gm DAILY MAY Administration Losartan Potassium 50 mg 06/25/23 09:00 06/30/23 08:33 Losartan 50 Mg Tablet PO 50 mg DAILY MAY Administration Ondansetron HCl 4 mg 06/28/23 08:50 06/29/23 21:08 Ondansetron Odt 4 Mg Tablet TL 4 mg Q4HR PRN Administration Nausea / Vomiting Oxycodone HCl 10 mg 06/24/23 10:31 06/30/23 07:52 Oxycodone 5 Mg Tablet PO 10 mg Q4HR PRN Administration PAIN OF 4-8 Pantoprazole Sodium 40 mg 06/28/23 09:00 06/30/23 08:33 Pantoprazole 40 Mg Tablet PO 40 mg BID MAY Administration Polyethylene Glycol 17 gm 06/24/23 11:00 06/30/23 08:33 Polyethylene Glycol 3350 17 Gm Packet PO 17 gm DAILY MAY Administration Pregabalin 100 mg 06/24/23 21:00 06/30/23 08:33 Pregabalin 100 Mg Capsule PO 100 mg BID MAY Administration Pregabalin 50 mg 06/24/23 21:00 06/30/23 08:33 Pregabalin 25 Mg Capsule PO 50 mg BID MAY Administration Senna 8.6 mg 06/29/23 09:00 06/30/23 08:33 Senna 8.6 Mg Tablet PO 8.6 mg DAILY MAY Administration Sodium Chloride 10 ml 06/24/23 08:21 06/29/23 23:55 Sodium Chloride Flush 0.9% 10 Ml Syringe IVP 10 ml PRN PRN Administration NEEDED PER PROVIDER ORDERS Sodium Chloride 10 ml 06/24/23 09:00 06/30/23 08:34 Sodium Chloride Flush 0.9% 10 Ml Syringe IVP Not Given 0100,0900,1700 MAY Sucralfate 1 gm 06/26/23 07:00 06/30/23 06:19 Sucralfate 1 Gm/10 Ml Udc PO 1 gm 0700,1100,1600,2200 MAY Administration Tramadol HCl 50 mg 06/28/23 18:12 06/29/23 06:18 Tramadol 50 Mg Tablet PO 50 mg Q4HR PRN Administration Moderate Pain (Level 4-6) Trazodone HCl 100 mg 06/24/23 21:00 06/29/23 21:09 Trazodone 50 Mg Tablet PO 100 mg HS MAY Administration - Lab Result Lab results reviewed: Yes Fish Bone Diagrams: 06/30/23 05:39 06/30/23 05:39 - Additional Planning Condition/Complexity: Other (Not improved) My Orders: My Active Orders 06/29/23 09:00 Senna [Senokot] 8.6 mg PO DAILY 06/29/23 10:53 Nutrition Consult [CONS] Routine 06/30/23 15:00 HEMOGLOBIN AND HEMATOCRIT [HEME] Timed 07/01/23 05:00 BMP - BASIC METABOLIC PANEL [CHEM] DAILYLAB CBC [CBC - COMP BLD CT W/AUTO DIFF] [HEME] DAILYLAB Plan Discussed with:: Patient, Spouse Time Spent: 31-60 minutes Additional Planning Notes: Patient anemia is not improved, need blood transfusion today Not medically stable for discharge Subjective - Subjective Patient Reports: Shortness of Breath, Other (Feeling tired, and weakness) Objective Vital Signs: Vital Signs - 24 hr 06/29/23 06/29/23 06/29/23 12:10 16:19 20:42 Temperature 36.8 C 36.8 C 36.6 C Heart Rate [ 91 Brachial] Heart Rate [ 83 98 Radial] Respiratory 20 16 16 Rate Blood Pressure 154/86 H 132/78 H 133/80 H [Right Radial artery] O2 Saturation 91 L 91 L 91 L 06/29/23 06/30/23 06/30/23 23:59 04:32 08:21 Temperature 37.1 C 37.2 C 37.0 C Heart Rate [ Brachial] Heart Rate [ 93 91 86 Radial] Respiratory 18 18 18 Rate Blood Pressure 135/84 H 137/82 H 128/82 H [Right Radial artery] O2 Saturation 90 L 93 92 Oxygen O2 Source Room air I&O (Last 24 Hrs): Intake and Output Totals x24h 06/28/23 06/29/23 06/30/23 23:59 23:59 23:59 Intake Total 1300 991 Output Total 620 625 225 Balance 680 366 -225 General: Alert, Oriented x3, Other (Anxious) HEENT: PERRLA, EOMI Neuro: Alert, Non Focal, CN 2-12 Grossly Intact Respiratory: Chest non-tender, Breath sounds nml Abdomen: Soft, No tenderness - Results Results: Laboratory Results WBC 11.7 x10^3/uL (4.8-10.8) H 06/30/23 05:39 RBC 2.44 10^6/uL (4.70-6.10) L 06/30/23 05:39 Hgb 7.4 g/dL (14.0-18.0) L 06/30/23 05:39 Hct 23.8 % (42.0-52.0) L 06/30/23 05:39 MCV 97.5 fL (80.0-94.0) H 06/30/23 05:39 MCH 30.3 pg (27.0-31.0) 06/30/23 05:39 MCHC 31.1 g/dL (32.0-36.0) L 06/30/23 05:39 RDW 15.5 % (12.0-15.0) H 06/30/23 05:39 Plt Count 321 10^3/uL (130-450) 06/30/23 05:39 MPV 9.5 fL (7.4-11.4) 06/30/23 05:39 Neut # (Auto) 7.8 10^3/uL (1.5-6.6) H 06/30/23 05:39 Lymph # (Auto) 2.0 10^3/uL (1.5-3.5) 06/30/23 05:39 [place] # (Auto) 1.1 10^3/uL (0.0-1.0) H 06/30/23 05:39 Eos # (Auto) 0.3 10^3/uL (0.0-0.7) 06/30/23 05:39 Baso # (Auto) 0.0 10^3/uL (0.0-0.1) 06/30/23 05:39 Absolute Nucleated RBC 0.05 x10^3/uL 06/30/23 05:39 Total Counted 100 06/29/23 06:00 Band Neuts % (Manual) Not Reportable 06/30/23 05:39 Reactive Lymphs % (Man) 2 % 06/29/23 06:00 Abnorm Lymph % (Manual) Not Reportable 06/30/23 05:39 Metamyelocytes % 1 % (-0) H 06/29/23 06:00 Myelocytes % 1 % (-0) H 06/28/23 04:47 Nucleated RBC % 0.4 /100WBC 06/30/23 05:39 Neutrophils # (Manual) Not Reportable 06/30/23 05:39 Lymphocytes # (Manual) Not Reportable 06/30/23 05:39 Monocytes # (Manual) Not Reportable 06/30/23 05:39 Eosinophils # (Manual) Not Reportable 06/30/23 05:39 Basophils # (Manual) Not Reportable 06/30/23 05:39 Differential Comment MANUAL=AUTO DIFF 06/30/23 05:39 Manual Slide Review Indicated 06/29/23 06:00 WBC Morphology NORMAL APPEARANCE (NORMAL) 06/30/23 05:39 Platelet Estimate NORMAL (130-450,000) (NORMAL) 06/30/23 05:39 Platelet Morphology RARE GIANT PLATELETS (NORMAL) 06/30/23 05:39 RBC Morph Micro Appear NORMAL APPEARANCE (NORMAL) 06/30/23 05:39 PT 14.2 secs (9.9-12.6) H 06/25/23 05:36 INR 1.3 (0.8-1.2) H 06/25/23 05:36 APTT 25.7 secs (24.9-33.3) 06/25/23 05:36 VBG pH 7.463 (7.31-7.41) H 06/25/23 08:03 Ionized Calcium 1.07 mmol/L (1.15-1.33) L 06/25/23 08:03 Sodium 138 mmol/L (135-145) 06/30/23 05:39 Potassium 3.8 mmol/L (3.5-4.5) 06/30/23 05:39 Chloride 101 mmol/L (101-111) 06/30/23 05:39 Carbon Dioxide 33 mmol/L (21-32) H 06/30/23 05:39 Anion Gap 4.0 (6-13) L 06/30/23 05:39 BUN 19 mg/dL (6-20) 06/30/23 05:39 Creatinine 0.9 mg/dL (0.6-1.3) 06/30/23 05:39 Estimated GFR (MDRD) 85 (>89) L 06/30/23 05:39 Glucose 148 mg/dL (74-104) H 06/30/23 05:39 Lactic Acid 1.5 mmol/L (0.5-2.2) 06/24/23 07:00 Calcium 8.6 mg/dL (8.5-10.3) 06/30/23 05:39 Phosphorus 3.2 mg/dL (2.5-5.0) 06/25/23 05:36 Magnesium 2.3 mg/dL (1.7-2.3) 06/25/23 05:36 Total Bilirubin 0.3 mg/dL (0.2-1.0) 06/24/23 05:38 AST 14 IU/L (10-42) 06/24/23 05:38 ALT 14 IU/L (10-60) 06/24/23 05:38 Alkaline Phosphatase 52 IU/L (42-121) 06/24/23 05:38 Troponin I High Sens 11.6 ng/L (2.3-19.7) 06/24/23 05:38 B-Natriuretic Peptide 26 pg/mL (5-100) 06/27/23 05:05 Total Protein 5.1 g/dL (6.4-8.9) L 06/24/23 05:38 Albumin 2.9 g/dL (3.2-5.5) L 06/24/23 05:38 Globulin 2.2 g/dL (2.1-4.2) 06/24/23 05:38 Albumin/Globulin Ratio 1.3 (1.0-2.2) 06/24/23 05:38 Lipase < 10 U/L (11-82) L 06/24/23 05:38 Urine Color YELLOW 06/24/23 06:20 Urine Clarity CLEAR (CLEAR) 06/24/23 06:20 Urine pH 5.5 PH (5.0-7.5) 06/24/23 06:20 Ur Specific [place] 1.015 (1.002-1.030) 06/24/23 06:20 Urine Protein NEGATIVE mg/dL (NEGATIVE) 06/24/23 06:20 Urine Glucose (UA) NEGATIVE mg/dL (NEGATIVE) 06/24/23 06:20 Urine Ketones TRACE mg/dL (NEGATIVE) 06/24/23 06:20 Urine Occult Blood NEGATIVE (NEGATIVE) 06/24/23 06:20 Urine Nitrite NEGATIVE (NEGATIVE) 06/24/23 06:20 Urine Bilirubin NEGATIVE (NEGATIVE) 06/24/23 06:20 Urine Urobilinogen 0.2 (NORMAL) E.U./dL (NORMAL) 06/24/23 06:20 Ur Leukocyte Esterase NEGATIVE (NEGATIVE) 06/24/23 06:20 Ur Microscopic Review NOT INDICATED 06/24/23 06:20 Urine Culture Comments NOT INDICATED 06/24/23 06:20 Nasal Adenovirus (PCR) NOT DETECTED 06/24/23 06:14 Nasal B. parapertussis DNA (PCR) NOT DETECTED 06/24/23 06:14 Nasal Coronavir 229E PCR NOT DETECTED 06/24/23 06:14 Nasal Coronavir HKU1 PCR NOT DETECTED 06/24/23 06:14 Nasal Coronavir NL63 PCR NOT DETECTED 06/24/23 06:14 Nasal Coronavir OC43 PCR NOT DETECTED 06/24/23 06:14 Nasal Enterovir/Rhinovir PCR NOT DETECTED 06/24/23 06:14 Nasal Influenza B PCR NOT DETECTED 06/24/23 06:14 Nasal Influenza A PCR NOT DETECTED 06/24/23 06:14 Nasal Parainfluen 1 PCR NOT DETECTED 06/24/23 06:14 Nasal Parainfluen 2 PCR NOT DETECTED 06/24/23 06:14 Nasal Parainfluen 3 PCR NOT DETECTED 06/24/23 06:14 Nasal Parainfluen 4 PCR NOT DETECTED 06/24/23 06:14 Nasal RSV (PCR) NOT DETECTED 06/24/23 06:14 Nasal B.pertussis DNA PCR NOT DETECTED 06/24/23 06:14 Nasal C.pneumoniae (PCR) NOT DETECTED 06/24/23 06:14 [place] Human Metapneumo PCR NOT DETECTED 06/24/23 06:14 Nasal M.pneumoniae (PCR) NOT DETECTED 06/24/23 06:14 Nasal SARS-CoV-2 (PCR) NOT DETECTED 06/24/23 06:14 Stl Occult Blood (IFOB) POSITIVE (NEGATIVE) A 06/24/23 17:23 Blood Type O NEGATIVE 06/24/23 07:00 Blood Type Recheck O NEGATIVE 06/24/23 07:37 Antibody Screen NEGATIVE 06/24/23 07:00 Crossmatch IS Only See Detail 06/24/23 07:00 - Procedures Procedures: Procedures RESECTION OF LEFT ELBOW BURSA AND LIGAMENT, OPEN APPROACH (01/18/18) Sepsis Event Note (H) - Evaluation Current Stage of Sepsis: Ruled out ABX Reporting Has patient been on IV antibiotics over the past 48 hours?: No
[2023-06-30] MEDS ORDERED: LACTULOSE 10 GM /15 ML UDC PO PRN (12:35)
[2023-07-01 05:47] LABS: BASOPHILS % (AUTO) 0.3 %; EOSINOPHILS % (AUTO) 1.6 %; HCT - HEMATOCRIT 26.9 % (42.0-52.0); HGB - HEMOGLOBIN 8.1 g/dL (14.0-18.0); LYMPHOCYTES % (AUTO) 14.8 %; MEAN CORPUSCULAR HGB CONC 30.1 g/dL (32.0-36.0); MEAN CORPUSCULAR VOLUME 96.4 fL (80.0-94.0); MEAN PLATELET VOLUME 9.6 fL (7.4-11.4); MONOCYTES % (AUTO) 9.5 %; NEUTROPHILS % (AUTO) 68.5 %; PLT - PLATELET COUNT 335 10^3/uL (130-450); RED BLOOD COUNT 2.79 10^6/uL (4.70-6.10); RED CELL DISTRIBUTION WIDTH 16.5 % (12.0-15.0); WHITE BLOOD COUNT 11.7 x10^3/uL (4.8-10.8)
[2023-07-01 05:48] LABS: SLIDE REVIEW? Indicated
[2023-07-01 05:49] LABS: ABNORMAL LYMPHS % (MANUAL) 0 %
[2023-07-01 06:06] LABS: CALCIUM 8.7 mg/dL (8.5-10.3); CREATININE 0.9 mg/dL (0.6-1.3); POTASSIUM 3.9 mmol/L (3.5-4.5)
[2023-07-01 06:10] LABS: BAND NEUTROPHILS % (MANUAL) 3 %; EOSINOPHILS # (MANUAL) 0.5 10^3/uL (0-0.7); LYMPHOCYTES # (MANUAL) 2.6 10^3/uL (1.5-3.5); LYMPHOCYTES % (MANUAL) 21 %; METAMYELOCYTES % (MANUAL) 1 %; MONOCYTES # (MANUAL) 0.8 10^3/uL (0.0-1.0); NEUTROPHILS # (MANUAL) 7.7 10^3/uL (1.5-6.6); NUCLEATED RBC (MANUAL) 1 %; REACTIVE LYMPHS % (MANUAL) 1 %
[2023-07-01 06:16] LABS: DIFFERENTIAL COMMENT MANUAL DIFFERENTIAL; PLATELET ESTIMATE, MANUAL NORMAL (130-450,000) (NORMAL); PLATELET MORPHOLOGY NORMAL APPEARANCE (NORMAL); WBC MORPHOLOGY (MULTIPLE) NORMAL APPEARANCE (NORMAL)
[2023-07-01] MEDS: METOPROLOL SUCCINATE 25 MG TABLET PO SCH (08:34)
--- NOTE | 2023-07-01 09:30 | PROVIDER PROGRESS NOTE ---
Assessment/Plan - Problem List (1) Acute anemia Assessment/Plan: Not improved much Hemoglobin 8.1 after 1 unit of transfusion Patient had 5 black stool today Recheck H&H, transfuse if hemoglobin less than 7 Switch oral Protonix to IV Protonix twice a day (2) Iron deficiency Assessment/Plan: Received 1 dose of IV iron 2 days ago will consider oral iron (3) ROSE MARY on CPAP Assessment/Plan: Stable (4) Abdominal pain Qualifiers: Abdominal location: generalized Qualified Code(s): R10.84 - Generalized abdominal pain Assessment/Plan: Resolved (5) SOB (shortness of breath) on exertion Assessment/Plan: Related to anemia Focus on anemia correction - Current Meds Current Meds: Current Medications Generic Name Dose Route Start Last Admin Trade Name Freq PRN Reason Stop Dose Admin Al Hydroxide/Mg Hydroxide 30 ml 06/28/23 14:00 07/01/23 05:03 Mag Hydrox/Al Hydrox/Simeth 30 Ml Udc PO 30 ml TID MAY Administration Amitriptyline HCl 25 mg 06/24/23 21:00 06/30/23 20:52 Amitriptyline 25 Mg Tablet PO 25 mg QPM MAY Administration Duloxetine HCl 60 mg 06/25/23 09:00 07/01/23 08:34 Duloxetine 60 Mg Capsule PO 60 mg DAILY MAY Administration Losartan Potassium 50 mg 06/25/23 09:00 07/01/23 08:34 Losartan 50 Mg Tablet PO 50 mg DAILY MAY Administration Metoprolol Succinate 25 mg 07/01/23 09:00 07/01/23 08:34 Metoprolol Succinate 25 Mg Tablet PO 25 mg DAILY MAY Administration Ondansetron HCl 4 mg 06/28/23 08:50 06/30/23 22:46 Ondansetron Odt 4 Mg Tablet TL 4 mg Q4HR PRN Administration Nausea / Vomiting Oxycodone HCl 10 mg 06/24/23 10:31 07/01/23 08:40 Oxycodone 5 Mg Tablet PO 10 mg Q4HR PRN Administration PAIN OF 4-8 Pantoprazole Sodium 40 mg 06/28/23 09:00 07/01/23 08:34 Pantoprazole 40 Mg Tablet PO 40 mg BID MAY Administration Polyethylene Glycol 17 gm 06/24/23 11:00 07/01/23 08:35 Polyethylene Glycol 3350 17 Gm Packet PO 17 gm DAILY MAY Administration Pregabalin 100 mg 06/24/23 21:00 07/01/23 08:34 Pregabalin 100 Mg Capsule PO 100 mg BID MAY Administration Pregabalin 50 mg 06/24/23 21:00 07/01/23 08:34 Pregabalin 25 Mg Capsule PO 50 mg BID MAY Administration Senna 8.6 mg 06/29/23 09:00 07/01/23 08:34 Senna 8.6 Mg Tablet PO 8.6 mg DAILY MAY Administration Sodium Chloride 10 ml 06/24/23 08:21 06/29/23 23:55 Sodium Chloride Flush 0.9% 10 Ml Syringe IVP 10 ml PRN PRN Administration NEEDED PER PROVIDER ORDERS Sodium Chloride 10 ml 06/24/23 09:00 07/01/23 08:35 Sodium Chloride Flush 0.9% 10 Ml Syringe IVP 10 ml 0100,0900,1700 MAY Administration Sucralfate 1 gm 06/26/23 07:00 07/01/23 06:12 Sucralfate 1 Gm/10 Ml Udc PO 1 gm 0700,1100,1600,2200 MAY Administration Tramadol HCl 50 mg 06/28/23 18:12 06/30/23 14:42 Tramadol 50 Mg Tablet PO 50 mg Q4HR PRN Administration Moderate Pain (Level 4-6) Trazodone HCl 100 mg 06/24/23 21:00 06/30/23 20:52 Trazodone 50 Mg Tablet PO 100 mg HS MAY Administration - Lab Result Fish Bone Diagrams: 07/01/23 05:40 07/01/23 05:40 - Additional Planning Condition/Complexity: Unstable My Orders: My Active Orders 06/30/23 11:43 Transfuse RBCs Leukoreduced [RC] .ONCE 06/30/23 12:35 Lactulose [Enulose] 10 gm PO DAILY PRN 07/01/23 09:00 Metoprolol Succinate [Toprol Xl] 25 mg PO DAILY 07/02/23 05:00 BMP - BASIC METABOLIC PANEL [CHEM] DAILYLAB CBC [CBC - COMP BLD CT W/AUTO DIFF] [HEME] DAILYLAB 07/03/23 05:00 BMP - BASIC METABOLIC PANEL [CHEM] DAILYLAB CBC [CBC - COMP BLD CT W/AUTO DIFF] [HEME] DAILYLAB 07/04/23 05:00 BMP - BASIC METABOLIC PANEL [CHEM] DAILYLAB CBC [CBC - COMP BLD CT W/AUTO DIFF] [HEME] DAILYLAB 07/05/23 05:00 BMP - BASIC METABOLIC PANEL [CHEM] DAILYLAB CBC [CBC - COMP BLD CT W/AUTO DIFF] [HEME] DAILYLAB Time Spent: 31-60 minutes Additional Planning Notes: Patient still has black stool, may need blood transfusion again. Still need IV Protonix to help with healing of the ulcer. Not medically stable for discharge Subjective - Subjective Patient Reports: Shortness of Breath Objective Vital Signs: Vital Signs - 24 hr 06/30/23 06/30/23 06/30/23 11:46 12:01 12:18 Temperature 36.8 C 36.8 C 36.7 C Heart Rate [ Brachial] Heart Rate [ 88 84 94 Radial] Respiratory 17 17 18 Rate Blood Pressure 134/77 H 134/77 H 123/79 [Right Radial artery] O2 Saturation 91 L 91 L 92 06/30/23 06/30/23 06/30/23 12:21 14:36 14:38 Temperature 36.7 C 36.4 C L 36.4 C L Heart Rate [ Brachial] Heart Rate [ 95 91 92 Radial] Respiratory 18 17 18 Rate Blood Pressure 123/79 131/74 H 131/74 H [Right Radial artery] O2 Saturation 92 91 L 91 L 06/30/23 06/30/23 06/30/23 16:22 21:00 23:54 Temperature 36.6 C 36.6 C 37.0 C Heart Rate [ Brachial] Heart Rate [ 93 86 89 Radial] Respiratory 16 16 16 Rate Blood Pressure 160/82 H 136/80 H 139/76 H [Right Radial artery] O2 Saturation 93 91 L 94 07/01/23 07/01/23 04:59 08:15 Temperature 36.7 C 36.7 C Heart Rate [ 84 Brachial] Heart Rate [ 89 Radial] Respiratory 76 H 16 Rate Blood Pressure 137/79 H 150/86 H [Right Radial artery] O2 Saturation 91 L 90 L Oxygen O2 Source Room air I&O (Last 24 Hrs): Intake and Output Totals x24h 06/29/23 06/30/23 07/02/23 23:59 23:59 00:59 Intake Total 991 1330 240 Output Total 625 375 Balance 366 955 240 General: Alert, Oriented x3 HEENT: PERRLA, EOMI Neck: Supple, No JVD Neuro: Alert, Non Focal Cardiovascular: Regular rate Respiratory: No respiratory distress Abdomen: Normal bowel sounds Extremities: No clubbing, No edema Comments/Notes: Pale. chronic ill - Results Results: Laboratory Results WBC 11.7 x10^3/uL (4.8-10.8) H 07/01/23 05:40 RBC 2.79 10^6/uL (4.70-6.10) L 07/01/23 05:40 Hgb 8.1 g/dL (14.0-18.0) L 07/01/23 05:40 Hct 26.9 % (42.0-52.0) L 07/01/23 05:40 MCV 96.4 fL (80.0-94.0) H 07/01/23 05:40 MCH 29.0 pg (27.0-31.0) 07/01/23 05:40 MCHC 30.1 g/dL (32.0-36.0) L 07/01/23 05:40 RDW 16.5 % (12.0-15.0) H 07/01/23 05:40 Plt Count 335 10^3/uL (130-450) 07/01/23 05:40 MPV 9.6 fL (7.4-11.4) 07/01/23 05:40 Neut # (Auto) Not Reportable 07/01/23 05:40 Lymph # (Auto) Not Reportable 07/01/23 05:40 [place] # (Auto) Not Reportable 07/01/23 05:40 Eos # (Auto) Not Reportable 07/01/23 05:40 Baso # (Auto) Not Reportable 07/01/23 05:40 Absolute Nucleated RBC Not Reportable 07/01/23 05:40 Total Counted 100 07/01/23 05:40 Band Neuts % (Manual) 3 % (0-10) 07/01/23 05:40 Reactive Lymphs % (Man) 1 % 07/01/23 05:40 Abnorm Lymph % (Manual) 0 % 07/01/23 05:40 Metamyelocytes % 1 % (-0) H 07/01/23 05:40 Myelocytes % 1 % (-0) H 06/28/23 04:47 Nucleated RBC % Not Reportable 07/01/23 05:40 Neutrophils # (Manual) 7.7 10^3/uL (1.5-6.6) H 07/01/23 05:40 Lymphocytes # (Manual) 2.6 10^3/uL (1.5-3.5) 07/01/23 05:40 Monocytes # (Manual) 0.8 10^3/uL (0.0-1.0) 07/01/23 05:40 Eosinophils # (Manual) 0.5 10^3/uL (0-0.7) 07/01/23 05:40 Basophils # (Manual) 0.0 10^3/uL (0-0.1) 07/01/23 05:40 Nucleated RBCs 1 % 07/01/23 05:40 Differential Comment MANUAL DIFFERENTIAL 07/01/23 05:40 Manual Slide Review Indicated 07/01/23 05:40 WBC Morphology NORMAL APPEARANCE (NORMAL) 07/01/23 05:40 Platelet Estimate NORMAL (130-450,000) (NORMAL) 07/01/23 05:40 Platelet Morphology NORMAL APPEARANCE (NORMAL) 07/01/23 05:40 RBC Morph Micro Appear 2+ ANISOCYTOSIS (NORMAL) 2+ POLYCHROMASIA (NORMAL) 07/01/23 05:40 RBC Morph Micro Appear 2+ ANISOCYTOSIS (NORMAL) 2+ POLYCHROMASIA (NORMAL) 07/01/23 05:40 PT 14.2 secs (9.9-12.6) H 06/25/23 05:36 INR 1.3 (0.8-1.2) H 06/25/23 05:36 APTT 25.7 secs (24.9-33.3) 06/25/23 05:36 VBG pH 7.463 (7.31-7.41) H 06/25/23 08:03 Ionized Calcium 1.07 mmol/L (1.15-1.33) L 06/25/23 08:03 Sodium 137 mmol/L (135-145) 07/01/23 05:40 Potassium 3.9 mmol/L (3.5-4.5) 07/01/23 05:40 Chloride 102 mmol/L (101-111) 07/01/23 05:40 Carbon Dioxide 33 mmol/L (21-32) H 07/01/23 05:40 Anion Gap 2.0 (6-13) L 07/01/23 05:40 BUN 19 mg/dL (6-20) 07/01/23 05:40 Creatinine 0.9 mg/dL (0.6-1.3) 07/01/23 05:40 Estimated GFR (MDRD) 85 (>89) L 07/01/23 05:40 Glucose 109 mg/dL (74-104) H 07/01/23 05:40 Lactic Acid 1.5 mmol/L (0.5-2.2) 06/24/23 07:00 Calcium 8.7 mg/dL (8.5-10.3) 07/01/23 05:40 Phosphorus 3.2 mg/dL (2.5-5.0) 06/25/23 05:36 Magnesium 2.3 mg/dL (1.7-2.3) 06/25/23 05:36 Total Bilirubin 0.3 mg/dL (0.2-1.0) 06/24/23 05:38 AST 14 IU/L (10-42) 06/24/23 05:38 ALT 14 IU/L (10-60) 06/24/23 05:38 Alkaline Phosphatase 52 IU/L (42-121) 06/24/23 05:38 Troponin I High Sens 11.6 ng/L (2.3-19.7) 06/24/23 05:38 B-Natriuretic Peptide 26 pg/mL (5-100) 06/27/23 05:05 Total Protein 5.1 g/dL (6.4-8.9) L 06/24/23 05:38 Albumin 2.9 g/dL (3.2-5.5) L 06/24/23 05:38 Globulin 2.2 g/dL (2.1-4.2) 06/24/23 05:38 Albumin/Globulin Ratio 1.3 (1.0-2.2) 06/24/23 05:38 Lipase < 10 U/L (11-82) L 06/24/23 05:38 Urine Color YELLOW 06/24/23 06:20 Urine Clarity CLEAR (CLEAR) 06/24/23 06:20 Urine pH 5.5 PH (5.0-7.5) 06/24/23 06:20 Ur Specific [place] 1.015 (1.002-1.030) 06/24/23 06:20 Urine Protein NEGATIVE mg/dL (NEGATIVE) 06/24/23 06:20 Urine Glucose (UA) NEGATIVE mg/dL (NEGATIVE) 06/24/23 06:20 Urine Ketones TRACE mg/dL (NEGATIVE) 06/24/23 06:20 Urine Occult Blood NEGATIVE (NEGATIVE) 06/24/23 06:20 Urine Nitrite NEGATIVE (NEGATIVE) 06/24/23 06:20 Urine Bilirubin NEGATIVE (NEGATIVE) 06/24/23 06:20 Urine Urobilinogen 0.2 (NORMAL) E.U./dL (NORMAL) 06/24/23 06:20 Ur Leukocyte Esterase NEGATIVE (NEGATIVE) 06/24/23 06:20 Ur Microscopic Review NOT INDICATED 06/24/23 06:20 Urine Culture Comments NOT INDICATED 06/24/23 06:20 Nasal Adenovirus (PCR) NOT DETECTED 06/24/23 06:14 Nasal B. parapertussis DNA (PCR) NOT DETECTED 06/24/23 06:14 Nasal Coronavir 229E PCR NOT DETECTED 06/24/23 06:14 Nasal Coronavir HKU1 PCR NOT DETECTED 06/24/23 06:14 Nasal Coronavir NL63 PCR NOT DETECTED 06/24/23 06:14 Nasal Coronavir OC43 PCR NOT DETECTED 06/24/23 06:14 Nasal Enterovir/Rhinovir PCR NOT DETECTED 06/24/23 06:14 Nasal Influenza B PCR NOT DETECTED 06/24/23 06:14 Nasal Influenza A PCR NOT DETECTED 06/24/23 06:14 Nasal Parainfluen 1 PCR NOT DETECTED 06/24/23 06:14 Nasal Parainfluen 2 PCR NOT DETECTED 06/24/23 06:14 Nasal Parainfluen 3 PCR NOT DETECTED 06/24/23 06:14 Nasal Parainfluen 4 PCR NOT DETECTED 06/24/23 06:14 Nasal RSV (PCR) NOT DETECTED 06/24/23 06:14 Nasal B.pertussis DNA PCR NOT DETECTED 06/24/23 06:14 Nasal C.pneumoniae (PCR) NOT DETECTED 06/24/23 06:14 [place] Human Metapneumo PCR NOT DETECTED 06/24/23 06:14 Nasal M.pneumoniae (PCR) NOT DETECTED 06/24/23 06:14 Nasal SARS-CoV-2 (PCR) NOT DETECTED 06/24/23 06:14 Stl Occult Blood (IFOB) POSITIVE (NEGATIVE) A 06/24/23 17:23 Blood Type O NEGATIVE 06/30/23 10:44 Blood Type Recheck O NEGATIVE 06/24/23 07:37 Antibody Screen NEGATIVE 06/30/23 10:44 Crossmatch IS Only See Detail 06/30/23 10:44 - Procedures Procedures: Procedures RESECTION OF LEFT ELBOW BURSA AND LIGAMENT, OPEN APPROACH (01/18/18) Sepsis Event Note (H) - Evaluation Current Stage of Sepsis: Ruled out ABX Reporting Has patient been on IV antibiotics over the past 48 hours?: No Current Medications - Current Medications Current Medications: Active Medications Al Hydroxide/Mg Hydroxide (Mag Hydrox/Al Hydrox/Simeth 30 Ml Udc) 30 ml PO TID [facility] Last Admin: 07/01/23 14:00 Dose: 30 ml Albuterol (Albuterol Neb 2.5 Mg/3 Ml) 2.5 mg INH RTQ4H PRN PRN Reason: Wheezing Amitriptyline HCl (Amitriptyline 25 Mg Tablet) 25 mg PO QPM [facility] Last Admin: 06/30/23 20:52 Dose: 25 mg Duloxetine HCl (Duloxetine 60 Mg Capsule) 60 mg PO DAILY [facility] Last Admin: 07/01/23 08:34 Dose: 60 mg Lactulose (Lactulose 10 Gm /15 Ml Udc) 10 gm PO DAILY PRN PRN Reason: Constipation Losartan Potassium (Losartan 50 Mg Tablet) 50 mg PO DAILY [facility] Last Admin: 07/01/23 08:34 Dose: 50 mg Metoprolol Succinate (Metoprolol Succinate 25 Mg Tablet) 25 mg PO DAILY [facility] Last Admin: 07/01/23 08:34 Dose: 25 mg Mineral Oil (Min Oil/Dimethicon/Coconut Oil 92 Gm Tube) 1 applic TOP PRN PRN PRN Reason: Skin Care Ondansetron HCl (Ondansetron Odt 4 Mg Tablet) 4 mg TL Q4HR PRN PRN Reason: Nausea / Vomiting Last Admin: 06/30/23 22:46 Dose: 4 mg Oxycodone HCl (Oxycodone 5 Mg Tablet) 10 mg PO Q4HR PRN PRN Reason: PAIN OF 4-8 Last Admin: 07/01/23 17:49 Dose: 10 mg Pantoprazole Sodium (Pantoprazole 40 Mg Vial) 40 mg IVP BID [facility] Polyethylene Glycol (Polyethylene Glycol 3350 17 Gm Packet) 17 gm PO DAILY [facility] Last Admin: 07/01/23 08:35 Dose: 17 gm Pregabalin (Pregabalin 100 Mg Capsule) 100 mg PO BID [facility] Last Admin: 07/01/23 08:34 Dose: 100 mg Pregabalin (Pregabalin 25 Mg Capsule) 50 mg PO BID [facility] Last Admin: 07/01/23 08:34 Dose: 50 mg Senna (Senna 8.6 Mg Tablet) 8.6 mg PO DAILY [facility] Last Admin: 07/01/23 08:34 Dose: 8.6 mg Sodium Chloride (Sodium Chloride Flush 0.9% 10 Ml Syringe) 10 ml IVP PRN PRN PRN Reason: NEEDED PER PROVIDER ORDERS Last Admin: 06/29/23 23:55 Dose: 10 ml Sodium Chloride (Sodium Chloride Flush 0.9% 10 Ml Syringe) 10 ml IVP 0100,0900,1700 [facility] Last Admin: 07/01/23 17:51 Dose: 10 ml Sucralfate (Sucralfate 1 Gm/10 Ml Udc) 1 gm PO 0700,1100,1600,2200 [facility] Last Admin: 07/01/23 17:49 Dose: 1 gm Tramadol HCl (Tramadol 50 Mg Tablet) 50 mg PO Q4HR PRN PRN Reason: Moderate Pain (Level 4-6) Last Admin: 06/30/23 14:42 Dose: 50 mg Trazodone HCl (Trazodone 50 Mg Tablet) 100 mg PO HS [facility] Last Admin: 06/30/23 20:52 Dose: 100 mg Amitriptyline HCl 25 - 50 mg PO DAILY PM 01/11/18 Azelastine HCl [Astepro] 4 spray NS QPM 01/11/18 Duloxetine HCl [Cymbalta] 60 mg PO DAILY 01/11/18 Oxycodone HCl 10 mg PO Q4HR PRN 01/11/18 Pregabalin [Lyrica] 150 mg PO BID 01/11/18 Tamsulosin [Flomax] 0.4 mg PO DAILY PM 01/11/18 Zolpidem Tartrate [Ambien] 10 mg PO DAILY PM PRN 01/11/18 Albuterol Sulfate [Proair Hfa Inhaler] 1 - 2 puffs INH Q4H PRN 10/22/19 Budesonide/Formoterol Fumarate [Symbicort 160-4.5 Mcg Inhaler] 1 puffs IH DAILY 10/22/19 Losartan [Cozaar] 50 mg PO DAILY 10/22/19 traZODone [Desyrel] 100 mg PO HS 06/17/[address] [Voltaren] 75 mg PO BIDWM 06/24/23
[2023-07-01 19:19] LABS: HCT - HEMATOCRIT 28.8 % (42.0-52.0); HGB - HEMOGLOBIN 8.6 g/dL (14.0-18.0)
[2023-07-01] MEDS: PANTOPRAZOLE 40 MG VIAL IVP SCH (21:06)
[2023-07-02 06:40] LABS: BASOPHILS % (AUTO) 0.4 %; EOSINOPHILS # (AUTO) 0.2 10^3/uL (0.0-0.7); EOSINOPHILS % (AUTO) 1.8 %; HCT - HEMATOCRIT 28.1 % (42.0-52.0); HGB - HEMOGLOBIN 8.4 g/dL (14.0-18.0); LYMPHOCYTES # (AUTO) 1.7 10^3/uL (1.5-3.5); LYMPHOCYTES % (AUTO) 16.2 %; MEAN CORPUSCULAR HEMOGLOBIN 29.1 pg (27.0-31.0); MEAN CORPUSCULAR HGB CONC 29.9 g/dL (32.0-36.0); MEAN CORPUSCULAR VOLUME 97.2 fL (80.0-94.0); MEAN PLATELET VOLUME 9.5 fL (7.4-11.4); MONOCYTES # (AUTO) 1.1 10^3/uL (0.0-1.0); MONOCYTES % (AUTO) 10.6 %; NEUTROPHILS # (AUTO) 6.8 10^3/uL (1.5-6.6); NEUTROPHILS % (AUTO) 66.1 %; NRBC ABSOLUTE COUNT (AUTO) 0.02 x10^3/uL; NUCLEATED RED BLOOD CELLS AUTO 0.2 /100WBC; PLT - PLATELET COUNT 323 10^3/uL (130-450); RED BLOOD COUNT 2.89 10^6/uL (4.70-6.10); RED CELL DISTRIBUTION WIDTH 16.1 % (12.0-15.0); WHITE BLOOD COUNT 10.2 x10^3/uL (4.8-10.8)
[2023-07-02 06:51] LABS: CALCIUM 8.7 mg/dL (8.5-10.3); CREATININE 0.9 mg/dL (0.6-1.3); POTASSIUM 4.1 mmol/L (3.5-4.5)
[2023-07-02] MEDS: IRON DEXTRAN 200 MG in SODIUM CHLORIDE 0.9% 100ML 100 ML IV ONE (08:49)
[2023-07-02 15:08] LABS: HCT - HEMATOCRIT 28.1 % (42.0-52.0); HGB - HEMOGLOBIN 8.2 g/dL (14.0-18.0)
--- NOTE | 2023-07-02 22:57 | PROVIDER PROGRESS NOTE ---
Assessment/Plan - Problem List (1) Acute anemia Assessment/Plan: Improving Hemoglobin hold around 8.4 after the 1 unit of blood transfusion 2 days ago Give IV iron today Monitoring hemoglobin to see if any sign of downtrending Discussed with on-call surgery, no indication for further surgical intervention. Recommend continue medical management, since the big duodenal ulcer needs time to heal (2) Iron deficiency Assessment/Plan: Give IV iron (3) Abdominal pain Qualifiers: Abdominal location: generalized Qualified Code(s): R10.84 - Generalized abdominal pain Assessment/Plan: Resolved, able to tolerate diet (4) SOB (shortness of breath) on exertion Assessment/Plan: Improving, off oxygen Echocardiogram showed normal ejection fraction, no evidence of CHF. No evidence of pulmonary disease at this point SOB and hypoxia is related to acute anemia - Current Meds Current Meds: Current Medications Generic Name Dose Route Start Last Admin Trade Name Freq PRN Reason Stop Dose Admin Al Hydroxide/Mg Hydroxide 30 ml 06/28/23 14:00 07/02/23 21:21 Mag Hydrox/Al Hydrox/Simeth 30 Ml Udc PO 30 ml TID MAY Administration Amitriptyline HCl 25 mg 06/24/23 21:00 07/02/23 21:20 Amitriptyline 25 Mg Tablet PO 25 mg QPM MAY Administration Duloxetine HCl 60 mg 06/25/23 09:00 07/02/23 08:50 Duloxetine 60 Mg Capsule PO 60 mg DAILY MAY Administration Losartan Potassium 50 mg 06/25/23 09:00 07/02/23 08:50 Losartan 50 Mg Tablet PO 50 mg DAILY MAY Administration Metoprolol Succinate 25 mg 07/01/23 09:00 07/02/23 08:50 Metoprolol Succinate 25 Mg Tablet PO 25 mg DAILY MAY Administration Ondansetron HCl 4 mg 06/28/23 08:50 07/02/23 18:52 Ondansetron Odt 4 Mg Tablet TL 4 mg Q4HR PRN Administration Nausea / Vomiting Oxycodone HCl 10 mg 06/24/23 10:31 07/02/23 21:21 Oxycodone 5 Mg Tablet PO 10 mg Q4HR PRN Administration PAIN OF 4-8 Pantoprazole Sodium 40 mg 07/01/23 21:00 07/02/23 21:21 Pantoprazole 40 Mg Vial IVP 40 mg BID MAY Administration Polyethylene Glycol 17 gm 06/24/23 11:00 07/02/23 08:50 Polyethylene Glycol 3350 17 Gm Packet PO Not Given DAILY MAY Pregabalin 100 mg 06/24/23 21:00 07/02/23 21:21 Pregabalin 100 Mg Capsule PO 100 mg BID MAY Administration Pregabalin 50 mg 06/24/23 21:00 07/02/23 21:20 Pregabalin 25 Mg Capsule PO 50 mg BID MAY Administration Senna 8.6 mg 06/29/23 09:00 07/02/23 08:50 Senna 8.6 Mg Tablet PO 8.6 mg DAILY MAY Administration Sodium Chloride 10 ml 06/24/23 08:21 06/29/23 23:55 Sodium Chloride Flush 0.9% 10 Ml Syringe IVP 10 ml PRN PRN Administration NEEDED PER PROVIDER ORDERS Sodium Chloride 10 ml 06/24/23 09:00 07/02/23 16:31 Sodium Chloride Flush 0.9% 10 Ml Syringe IVP 10 ml 0100,0900,1700 MAY Administration Sucralfate 1 gm 06/26/23 07:00 07/02/23 21:31 Sucralfate 1 Gm/10 Ml Udc PO 1 gm 0700,1100,1600,2200 MAY Administration Tramadol HCl 50 mg 06/28/23 18:12 07/02/23 00:31 Tramadol 50 Mg Tablet PO 50 mg Q4HR PRN Administration Moderate Pain (Level 4-6) Trazodone HCl 100 mg 06/24/23 21:00 07/02/23 21:20 Trazodone 50 Mg Tablet PO 100 mg HS MAY Administration - Lab Result Lab results reviewed: Yes Fish Bone Diagrams: 07/02/23 15:02 07/02/23 06:27 - Additional Planning My Orders: My Active Orders 07/03/23 05:00 BMP - BASIC METABOLIC PANEL [CHEM] DAILYLAB CBC [CBC - COMP BLD CT W/AUTO DIFF] [HEME] DAILYLAB 07/04/23 05:00 BMP - BASIC METABOLIC PANEL [CHEM] DAILYLAB CBC [CBC - COMP BLD CT W/AUTO DIFF] [HEME] DAILYLAB 07/05/23 05:00 BMP - BASIC METABOLIC PANEL [CHEM] DAILYLAB CBC [CBC - COMP BLD CT W/AUTO DIFF] [HEME] DAILYLAB Subjective - Subjective Patient Reports: Feeling Better, Shortness of Breath Objective Vital Signs: Vital Signs - 24 hr 07/02/23 07/02/23 07/02/23 00:25 05:00 08:31 Temperature 36.6 C 37.1 C 36.7 C Heart Rate [ 90 87 92 Brachial] Respiratory 16 16 16 Rate Blood Pressure 137/79 H [Right Brachial artery] Blood Pressure 139/80 H 146/85 H [Right Radial artery] O2 Saturation 96 92 93 07/02/23 07/02/23 07/02/23 13:00 17:00 21:00 Temperature 37.1 C 36.7 C 36.7 C Heart Rate [ 73 80 79 Brachial] Respiratory 16 16 16 Rate Blood Pressure 137/73 H 136/69 H 153/83 H [Right Brachial artery] Blood Pressure [Right Radial artery] O2 Saturation 92 93 92 Oxygen O2 Source Room air I&O (Last 24 Hrs): Intake and Output Totals x24h 06/30/23 07/01/23 07/02/23 22:59 23:59 23:59 Intake Total 1694 Output Total 200 Balance 1494 General: Alert, Oriented x3 HEENT: PERRLA, EOMI Neck: Supple Neuro: Alert, CN 2-12 Grossly Intact Cardiovascular: Regular rate Respiratory: No respiratory distress Abdomen: Soft Extremities: No clubbing, No edema - Results Results: Laboratory Results WBC 10.2 x10^3/uL (4.8-10.8) 07/02/23 06:27 RBC 2.89 10^6/uL (4.70-6.10) L 07/02/23 06:27 Hgb 8.2 g/dL (14.0-18.0) L 07/02/23 15:02 Hct 28.1 % (42.0-52.0) L 07/02/23 15:02 MCV 97.2 fL (80.0-94.0) H 07/02/23 06:27 MCH 29.1 pg (27.0-31.0) 07/02/23 06:27 MCHC 29.9 g/dL (32.0-36.0) L 07/02/23 06:27 RDW 16.1 % (12.0-15.0) H 07/02/23 06:27 Plt Count 323 10^3/uL (130-450) 07/02/23 06:27 MPV 9.5 fL (7.4-11.4) 07/02/23 06:27 Neut # (Auto) 6.8 10^3/uL (1.5-6.6) H 07/02/23 06:27 Lymph # (Auto) 1.7 10^3/uL (1.5-3.5) 07/02/23 06:27 Nye # (Auto) 1.1 10^3/uL (0.0-1.0) H 07/02/23 06:27 Eos # (Auto) 0.2 10^3/uL (0.0-0.7) 07/02/23 06:27 Baso # (Auto) 0.0 10^3/uL (0.0-0.1) 07/02/23 06:27 Absolute Nucleated RBC 0.02 x10^3/uL 07/02/23 06:27 Total Counted 100 07/01/23 05:40 Band Neuts % (Manual) 3 % (0-10) 07/01/23 05:40 Reactive Lymphs % (Man) 1 % 07/01/23 05:40 Abnorm Lymph % (Manual) 0 % 07/01/23 05:40 Metamyelocytes % 1 % (-0) H 07/01/23 05:40 Myelocytes % 1 % (-0) H 06/28/23 04:47 Nucleated RBC % 0.2 /100WBC 07/02/23 06:27 Neutrophils # (Manual) 7.7 10^3/uL (1.5-6.6) H 07/01/23 05:40 Lymphocytes # (Manual) 2.6 10^3/uL (1.5-3.5) 07/01/23 05:40 Monocytes # (Manual) 0.8 10^3/uL (0.0-1.0) 07/01/23 05:40 Eosinophils # (Manual) 0.5 10^3/uL (0-0.7) 07/01/23 05:40 Basophils # (Manual) 0.0 10^3/uL (0-0.1) 07/01/23 05:40 Nucleated RBCs 1 % 07/01/23 05:40 Differential Comment MANUAL DIFFERENTIAL 07/01/23 05:40 Manual Slide Review Indicated 07/01/23 05:40 WBC Morphology NORMAL APPEARANCE (NORMAL) 07/01/23 05:40 Platelet Estimate NORMAL (130-450,000) (NORMAL) 07/01/23 05:40 Platelet Morphology NORMAL APPEARANCE (NORMAL) 07/01/23 05:40 RBC Morph Micro Appear 2+ ANISOCYTOSIS (NORMAL) 2+ POLYCHROMASIA (NORMAL) 07/01/23 05:40 RBC Morph Micro Appear 2+ ANISOCYTOSIS (NORMAL) 2+ POLYCHROMASIA (NORMAL) 07/01/23 05:40 PT 14.2 secs (9.9-12.6) H 06/25/23 05:36 INR 1.3 (0.8-1.2) H 06/25/23 05:36 APTT 25.7 secs (24.9-33.3) 06/25/23 05:36 VBG pH 7.463 (7.31-7.41) H 06/25/23 08:03 Ionized Calcium 1.07 mmol/L (1.15-1.33) L 06/25/23 08:03 Sodium 137 mmol/L (135-145) 07/02/23 06:27 Potassium 4.1 mmol/L (3.5-4.5) 07/02/23 06:27 Chloride 101 mmol/L (101-111) 07/02/23 06:27 Carbon Dioxide 33 mmol/L (21-32) H 07/02/23 06:27 Anion Gap 3.0 (6-13) L 07/02/23 06:27 BUN 17 mg/dL (6-20) 07/02/23 06:27 Creatinine 0.9 mg/dL (0.6-1.3) 07/02/23 06:27 Estimated GFR (MDRD) 85 (>89) L 07/02/23 06:27 Glucose 106 mg/dL (74-104) H 07/02/23 06:27 Lactic Acid 1.5 mmol/L (0.5-2.2) 06/24/23 07:00 Calcium 8.7 mg/dL (8.5-10.3) 07/02/23 06:27 Phosphorus 3.2 mg/dL (2.5-5.0) 06/25/23 05:36 Magnesium 2.3 mg/dL (1.7-2.3) 06/25/23 05:36 Total Bilirubin 0.3 mg/dL (0.2-1.0) 06/24/23 05:38 AST 14 IU/L (10-42) 06/24/23 05:38 ALT 14 IU/L (10-60) 06/24/23 05:38 Alkaline Phosphatase 52 IU/L (42-121) 06/24/23 05:38 Troponin I High Sens 11.6 ng/L (2.3-19.7) 06/24/23 05:38 B-Natriuretic Peptide 26 pg/mL (5-100) 06/27/23 05:05 Total Protein 5.1 g/dL (6.4-8.9) L 06/24/23 05:38 Albumin 2.9 g/dL (3.2-5.5) L 06/24/23 05:38 Globulin 2.2 g/dL (2.1-4.2) 06/24/23 05:38 Albumin/Globulin Ratio 1.3 (1.0-2.2) 06/24/23 05:38 Lipase < 10 U/L (11-82) L 06/24/23 05:38 Urine Color YELLOW 06/24/23 06:20 Urine Clarity CLEAR (CLEAR) 06/24/23 06:20 Urine pH 5.5 PH (5.0-7.5) 06/24/23 06:20 Ur Specific [place] 1.015 (1.002-1.030) 06/24/23 06:20 Urine Protein NEGATIVE mg/dL (NEGATIVE) 06/24/23 06:20 Urine Glucose (UA) NEGATIVE mg/dL (NEGATIVE) 06/24/23 06:20 Urine Ketones TRACE mg/dL (NEGATIVE) 06/24/23 06:20 Urine Occult Blood NEGATIVE (NEGATIVE) 06/24/23 06:20 Urine Nitrite NEGATIVE (NEGATIVE) 06/24/23 06:20 Urine Bilirubin NEGATIVE (NEGATIVE) 06/24/23 06:20 Urine Urobilinogen 0.2 (NORMAL) E.U./dL (NORMAL) 06/24/23 06:20 Ur Leukocyte Esterase NEGATIVE (NEGATIVE) 06/24/23 06:20 Ur Microscopic Review NOT INDICATED 06/24/23 06:20 Urine Culture Comments NOT INDICATED 06/24/23 06:20 Nasal Adenovirus (PCR) NOT DETECTED 06/24/23 06:14 Nasal B. parapertussis DNA (PCR) NOT DETECTED 06/24/23 06:14 Nasal Coronavir 229E PCR NOT DETECTED 06/24/23 06:14 Nasal Coronavir HKU1 PCR NOT DETECTED 06/24/23 06:14 Nasal Coronavir NL63 PCR NOT DETECTED 06/24/23 06:14 Nasal Coronavir OC43 PCR NOT DETECTED 06/24/23 06:14 Nasal Enterovir/Rhinovir PCR NOT DETECTED 06/24/23 06:14 Nasal Influenza B PCR NOT DETECTED 06/24/23 06:14 Nasal Influenza A PCR NOT DETECTED 06/24/23 06:14 Nasal Parainfluen 1 PCR NOT DETECTED 06/24/23 06:14 Nasal Parainfluen 2 PCR NOT DETECTED 06/24/23 06:14 Nasal Parainfluen 3 PCR NOT DETECTED 06/24/23 06:14 Nasal Parainfluen 4 PCR NOT DETECTED 06/24/23 06:14 Nasal RSV (PCR) NOT DETECTED 06/24/23 06:14 Nasal B.pertussis DNA PCR NOT DETECTED 06/24/23 06:14 Nasal C.pneumoniae (PCR) NOT DETECTED 06/24/23 06:14 Brent Human Metapneumo PCR NOT DETECTED 06/24/23 06:14 Nasal M.pneumoniae (PCR) NOT DETECTED 06/24/23 06:14 Nasal SARS-CoV-2 (PCR) NOT DETECTED 06/24/23 06:14 Stl Occult Blood (IFOB) POSITIVE (NEGATIVE) A 06/24/23 17:23 Blood Type O NEGATIVE 06/30/23 10:44 Blood Type Recheck O NEGATIVE 06/24/23 07:37 Antibody Screen NEGATIVE 06/30/23 10:44 Crossmatch IS Only See Detail 06/30/23 10:44 - Procedures Procedures: Procedures RESECTION OF LEFT ELBOW BURSA AND LIGAMENT, OPEN APPROACH (01/18/18) Sepsis Event Note (H) - Evaluation Current Stage of Sepsis: Ruled out ABX Reporting Has patient been on IV antibiotics over the past 48 hours?: No
[2023-07-03 06:05] LABS: BASOPHILS % (AUTO) 0.4 %; EOSINOPHILS # (AUTO) 0.2 10^3/uL (0.0-0.7); EOSINOPHILS % (AUTO) 2.1 %; HCT - HEMATOCRIT 28.4 % (42.0-52.0); HGB - HEMOGLOBIN 8.5 g/dL (14.0-18.0); LYMPHOCYTES # (AUTO) 1.7 10^3/uL (1.5-3.5); LYMPHOCYTES % (AUTO) 17.4 %; MEAN CORPUSCULAR HGB CONC 29.9 g/dL (32.0-36.0); MEAN CORPUSCULAR VOLUME 96.9 fL (80.0-94.0); MEAN PLATELET VOLUME 9.5 fL (7.4-11.4); MONOCYTES % (AUTO) 9.9 %; NEUTROPHILS # (AUTO) 6.5 10^3/uL (1.5-6.6); NEUTROPHILS % (AUTO) 66.2 %; PLT - PLATELET COUNT 306 10^3/uL (130-450); RED BLOOD COUNT 2.93 10^6/uL (4.70-6.10); RED CELL DISTRIBUTION WIDTH 15.9 % (12.0-15.0); WHITE BLOOD COUNT 9.8 x10^3/uL (4.8-10.8)
[2023-07-03 06:33] LABS: CALCIUM 8.8 mg/dL (8.5-10.3); CREATININE 0.9 mg/dL (0.6-1.3); POTASSIUM 4.1 mmol/L (3.5-4.5)
[2023-07-03] MEDS: PANTOPRAZOLE 40 MG TABLET PO SCH (08:40)
[2023-07-03 09:24] VITALS: O2SAT 92
--- NOTE | 2023-07-03 10:56 | Discharge Plan ---
Discharge Plan Problem Reviewed?: Yes Disposition: Home, Self Care Condition: Fair Prescriptions: Sucralfate [Carafate] 1 gm PO 0700,1100,1600,2200 #120 ea Ferrous Gluconate 324 mg PO DAILY #60 tablet Pantoprazole [Protonix] 40 mg PO BIDAC #60 tab Metoprolol Succinate [Toprol Xl] 25 mg PO DAILY #30 tab Diet: Regular Activity Restrictions: Activity as Tolerated (and as per ortho for his left shoulder) Shower Restrictions: No Driving Restrictions: Yes (while shoulder is immobilized) Assistance Devices: Sling Weight Bearing: Full Weight Health Concerns: You are a gentleman who is followed by Nereyda Howard in our clinics. Your problem list with Nereyda is alcohol dependence, opioid dependence, depression with anxiety, hyperlipidemia, obstructive sleep apnea, hypertension, venous insufficiency of the legs, arthritis of the shoulder with recent shoulder surgery, as well as asthma and a chronically runny nose. You had recent shoulder surgery, and were placed on diclofenac for pain management. Unfortunately the combination of diclofenac with alcohol overuse can result in either severe stomach gastritis or ulcers of the stomach. You ended up having an ulcer of the stomach. You presented to the emergency room twice with abdominal pain. Once was June 17, and the second was June 22. With the first visit labs were done. You were mildly anemic. For you normal hemoglobin is 14. You were close to 13 g of hemoglobin on that day. You also had a CAT scan of your abdomen and pelvis. An ultrasound of your right upper quadrant. All of those were negative for any cause of your pain. They thought about gallbladder disease, bowel disease such as constipation, or diverticulosis. With the second visit, you continued to have pain that was in the middle of your stomach, as well as left lower quadrant. Your hemoglobin was now lower than it was before at 8.6. You also had a newly elevated white cell count. Before it was 10,000 and now it was 25,000. They checked the stool and there is no blood in your stool. The diseases they considered for that pain and lab work was gallbladder disease, urinary tract infection, pneumonia that was early or diverticulosis. CAT scan of the abdomen was again negative. He then went home and felt horrible. You had an episode of fainting and you had to come back to the emergency room. Now your hemoglobin was markedly low at 6.0. Your stool was dark. And they could narrow down the diagnosis to ulcer disease. You have been in the hospital since June 23 for upper GI bleed. The endoscopy finds you to have a very large duodenal ulcer. There is some constipation due to your opioid use and you had to have lactulose. Treatment consisted of an acid reducing medication to help your ulcer heal. Carafate to cover the ulcer much like an ointment would cover a open wound. And 6 units of transfusion. Your hemoglobin has been stable for the last 3 days at over 8. Today you are 8.5. You do not have any dizziness, lightheadedness or abdominal pain. Plan of Treatment: I have already called her primary care provider, Nereyda Howard, and let her know that you need to be seen this week. I would like her to do a CBC. You will be sent home on Protonix 40 mg twice a day. You will also be taking Carafate before each meal, and at bedtime. For the rest of the life you cannot take nonsteroidals. There are multiple nonsteroidals on the market. This includes aspirin, Naprosyn, Aleve, ibuprofen, Motrin, diclofenac, etc. The only pain reliever that you can take [id number] is Tylenol. We do feel that it is a combination of alcohol and diclofenac to gave you such a large ulcer. We are asking you to not drink at all, ever again. Please make sure that you follow-up with outpatient physical therapy for the left shoulder. In the next 4 to 6 weeks you will need a repeat endoscopy with Dr. Quan. He is the surgeon that did the first endoscopy. Please have Nereyda Howard refer you to Dr. Quan office. In addition to the Protonix and Carafate, I am sending you home on iron, 1 tablet a day. It will turn your stools dark or black. Please take that on a daily basis for the next month. It takes close to 3 weeks for you to go from a hemoglobin of 8 to hemoglobin of 9. So I do not anticipate you having a normal hemoglobin again for 18 weeks. If you feel that you are bleeding again, we have limited services at this hospital with regards to care of such a large ulcer. Treatment consists of injection of the ulcer with a drying agent during a repeat endoscopy. It can be surgical resection called a vagotomy and antrectomy. Or you could see interventional radiology where a radiologist locates the artery that is bleeding and then plug up the artery doing an x-ray with clotting injection. Care Goals: To have complete healing of your ulcer. To be sober without any alcohol use at all To have regained use of the left shoulder again with less pain Assessment: Patient is alert, oriented to person place and time. Understands instructions and promises to follow through. is at his bedside, and also understands instructions. Follow-Up Care: Outpatient Rehab - PT, Outpatient Rehab - OT No Smoking: If you smoke, Please STOP! Call for help.
[2023-07-03 11:40] VITALS: BP 124/69
--- NOTE | 2023-07-03 13:26 | DISCHARGE SUMMARY ---
Discharge Summary Discharge Date: 07/03/23 Discharging Provider: Debbi Sexton MD Primary Care Provider: Nereyda Howard Code Status: Attempt Resuscitation Condition at Discharge: Fair Discharge Disposition: 01 Home, Self Care - DIAGNOSES Discharge Diagnoses with Status of Each Condition: 1. Upper GI bleed 2. Acute blood loss anemia 3. Iron deficiency anemia 4. Duodenal ulcer 5. Abdominal pain 6. Syncope 7. Leukocytosis 8. Postoperative pain, acute, shoulder 9. Chronic pain 10. Alcohol use disorder 11. Hypertension 12. Obstructive sleep apnea on CPAP 13. Asthma without exacerbation - HPI History of Present Illness: The patient is a 63-year-old male with complicated PMH including HTN, ROSE MARY on CPAP, BPH, chronic back pain with spinal cord stimulator BIBA from home for syncope. The at bedside provides additional history. He had left shoulder rotator cuff repair and arthroscopy in mid-May, and after that had a viral respiratory illness that lasted about 7 days. He has been in the ED now 3 times in the past couple weeks for abdominal pain. In May, hemoglobin was slightly diminished from his baseline hemoglobin. Baseline is 14, and he was seen in the ER with a hemoglobin of 12. CT of abdomen was normal. Differential diagnosis included gallbladder, colon distention, and he was sent home. He returned a second time with abdominal pain and again differential diagnosis did not include ulcer. Hemoglobin had dropped to 8.6. Stool was guaiac negative. It was with the third and final visit where his hemoglobin was 6, and stool was quite positive that he was admitted for GI bleed. He states he has not felt well with abdominal pain, nausea, early satiety for the past 10+ days. He has not had a BM in ~10 days and has had no luck with home laxatives. This morning he got up and he immediately felt lightheaded and then awoke on the floor. As he has not been feeling well and sleeping in the recliner, his was sleeping on the couch and heard him fall, immediately went over to him and his eyes were open but he was not responsive for about 90 seconds. She called EMS who brought patient to ED. He did not hit his head. He has never had syncope in the past. In ED, he was noted to have H/H 6/19.2, Cr 1.5, plt 440, wbc 19.4. - Past Medical History Cardiovascular: reports: Hypertension Respiratory: reports: Asthma, Sleep apnea, CPAP use Endocrine/Autoimmune: reports: None GI: reports: None : reports: Benign prostate hypertrophy HEENT: reports: Chronic vision loss Psych: reports: None Musculoskeletal: reports: Chronic back pain Derm: reports: None MRSA Hx?: No - Past Surgical History General: reports: Colonoscopy Ortho: reports: Spine surgery, Other (spinal nerve stimulator) - HOSPITAL COURSE Hospital Course: The patient was scoped within a few hours of his admission. EGD showed 1 nonbleeding cratered duodenal ulcer in the ampulla. It was 30 mm in its largest dimension. It was not actively bleeding and as such there was not active intervention such as injection. This is the source of his anemia. Cardia and gastric fundus were normal. He had a normal esophagus, rest of stomach was normal. Pathology had no diagnostic alterations and he had no Helicobacter.The patient also has a history of chronic opioid use, as well as chronic alcohol abuse noted in the medical record.It was felt that the patient had developed an ulcer secondary to his diclofenac use combined with ongoing alcohol abuse. The patient stated that he would no longer drink. That the drink he had before admission was his last 1. He was also advised never to take any nonsteroidal therapy. There are many on the market. And I explained to him that that the easiest way to remember was to only take Tylenol that was [id number]. He had a prolonged stay due to continued bleeding. In the first 24 to 48 hours he required 5 units of blood to maintain his hemoglobin. When he was seen in the emergency room with his first visit his hemoglobin was 12. When he was seen in the emergency room the second visit and sent home his hemoglobin was 8. When he was finally admitted with his third emergency room stay his hemoglobin was 6.0. With 5 units of blood his hemoglobin increased to 7.5. Over the next 24 hours from June 24 to June 25 he continued to drift down. On June 25 his hemoglobin was again 6.8 and he was transfused 1 more unit of blood. He has received a total of 6 units. With that last unit his hemoglobin has stayed stable. Over the course of June 30- July 01 hemoglobin was 8.1-8.5. He states that he does not have any stomach symptoms right now. There is no dizziness, lighthe adedness. As such I am discharging him on Protonix 40 mg p.o. twice daily, Carafate before each meal and at bedtime. I would like him to see his primary care provider in the next week and I have texted her and messaged her in the outpatient chart. I would like a CBC checked. He does have a really large ulcer and needs to be watched to make sure he does not rebleed. I also want to make sure he gets rescoped with Dr. Quan in the next 4 to 6 weeks. If he returns with bleeding, consideration should be given to transfer from the ER. He would need either ulcer injection, interventional radiology, or vagotomy and pyloroplasty possibly. While we can inject an ulcer, we do not have interventional radiology for this. At discharge temperature 36.4. Heart rate 69. Blood pressure 124/69. Respirations 16. 92% on room air. His left arm is in a sling and his pain is rated at 4 out of 10 because of that. He is a fatigued appearing morbidly obese gentleman who is 6 foot tall, 138 kg. Alert and oriented to person, place, time and situation. is at the bedside and hears all of the instructions as well. Neck is supple. Lungs are clear. Regular rate and rhythm. Abdomen obese, soft, nontender. Extremities without edema. Stools are intermittently dark. Nursing reports that has been present for the last 3 days without any change. And again hemoglobin has remained stable in the face of the dark stools. He promises not to drink anymore. Greater than 30 minutes was spent coordinating discharge This document was made in part using voice recognition software. While efforts are made to proofread this document, sound alike and grammatical errors may occur. - ALLERGIES Allergies/Adverse Reactions: Allergies Allergy/AdvReac Type Severity Reaction Status Date / Time cefaclor [From [facility]] Allergy Rash Verified 06/24/23 05:38 - MEDICATIONS Home Medications: Ambulatory Orders Medication Instructions Recorded Confirmed Amitriptyline HCl 25 - 50 mg PO DAILY PM 01/11/18 06/24/23 Azelastine HCl [Astepro] 4 spray NS QPM 01/11/18 06/24/23 Duloxetine HCl [Cymbalta] 60 mg PO DAILY 01/11/18 06/24/23 Oxycodone HCl 10 mg PO Q4HR PRN 01/11/18 06/24/23 Pregabalin [Lyrica] 150 mg PO BID 01/11/18 06/24/23 Tamsulosin [Flomax] 0.4 mg PO DAILY PM 01/11/18 06/24/23 Zolpidem Tartrate [Ambien] 10 mg PO DAILY PM PRN 01/11/18 06/24/23 Albuterol Sulfate [Proair Hfa 1 - 2 puffs INH Q4H PRN 10/22/19 06/24/23 Inhaler] Budesonide/Formoterol Fumarate 1 puffs IH DAILY 10/22/19 06/24/23 [Symbicort 160-4.5 Mcg Inhaler] Losartan [Cozaar] 50 mg PO DAILY 10/22/19 06/24/23 traZODone [Desyrel] 100 mg PO HS 06/17/23 06/24/23 Ferrous Gluconate 324 mg PO DAILY #60 tablet 07/03/23 Metoprolol Succinate [Toprol Xl] 25 mg PO DAILY #30 tab 07/03/23 Pantoprazole [Protonix] 40 mg PO BIDAC #60 tab 07/03/23 Sucralfate [Carafate] 1 gm PO 0700,1100,1600,2200 #120 ea 07/03/23 - LABS Result Diagrams: 07/03/23 05:50 07/03/23 05:50 - SEPSIS Current Stage of Sepsis: Ruled out
== END 2023-07-03 12:00 | disposition home or self-care (01) | DRG 378 ==
LOC: EDUNIT# → ED 05:24 → MS2 08:21 → OBSVTOIN 13:08
PROVIDERS: ADMIT Internal Medicine; ATTEND Specialist
PROC: 0DB68ZX Excision of Stomach, Via Natural or Artificial Opening Endoscopic, Diagnostic (ICD-10-PCS; principal; 2023-06-25 11:30)
PROC: 30233N1 Transfusion of Nonautologous Red Blood Cells into Peripheral Vein, Percutaneous Approach (ICD-10-PCS; 2023-06-30)
DX: K26.4 Chronic or unspecified duodenal ulcer with hemorrhage (principal); D50.9 Iron deficiency anemia, unspecified; K92.2 Gastrointestinal hemorrhage, unspecified; D62 Acute posthemorrhagic anemia; Z68.41 Body mass index [BMI] 40.0-44.9, adult; I10 Essential (primary) hypertension; R79.89 Other specified abnormal findings of blood chemistry; G47.33 Obstructive sleep apnea (adult) (pediatric); N40.0 Benign prostatic hyperplasia without lower urinary tract symptoms; G89.4 Chronic pain syndrome; J45.909 Unspecified asthma, uncomplicated; H54.7 Unspecified visual loss; Z20.822 Contact with and (suspected) exposure to COVID-19; Z20.828 Contact with and (suspected) exposure to other viral communicable diseases; F10.10 Alcohol abuse, uncomplicated; T39.395A Adverse effect of other nonsteroidal anti-inflammatory drugs [NSAID], initial encounter; E66.01 Morbid (severe) obesity due to excess calories; K59.01 Slow transit constipation; D72.829 Elevated white blood cell count, unspecified; G89.18 Other acute postprocedural pain; M25.512 Pain in left shoulder; M54.10 Radiculopathy, site unspecified; M79.671 Pain in right foot; W19.XXXA Unspecified fall, initial encounter; E61.1 Iron deficiency; R05.9 Cough, unspecified; R06.02 Shortness of breath; Z79.899 Other long term (current) drug therapy; Z86.19 Personal history of other infectious and parasitic diseases; Z87.898 Personal history of other specified conditions; Z96.82 Presence of neurostimulator; Z98.1 Arthrodesis status; Z98.890 Other specified postprocedural states
CPT/HCPCS: 36415; 36430; 71045; 73030; 73610; 74018; 80048; 80053; 81003; 82272; 82274; 82330; 83605; 83690; 83735; 83880; 84100; 84484; 85014; 85018; 85025; 85610; 85730; 86850; 86900; 86901; 86920; 87633; 93005; 93307; 96374; 96375; 96376; 97116; 97161; 97166; 99291; A9270; J1750; J2916; J7120; P9016; P9040; Q0162; 81001; 87086

== ENCOUNTER 2023-07-09 09:00 | Outpatient (CLI) | payer MEDICARE ==
[2023-07-09 09:11] LABS: BASOPHILS % (AUTO) 0.3 %; EOSINOPHILS # (AUTO) 0.1 10^3/uL (0.0-0.7); EOSINOPHILS % (AUTO) 1.3 %; HGB - HEMOGLOBIN 9.7 g/dL (14.0-18.0); LYMPHOCYTES # (AUTO) 1.1 10^3/uL (1.5-3.5); LYMPHOCYTES % (AUTO) 14.6 %; MEAN CORPUSCULAR HEMOGLOBIN 28.6 pg (27.0-31.0); MEAN CORPUSCULAR HGB CONC 29.4 g/dL (32.0-36.0); MEAN CORPUSCULAR VOLUME 97.3 fL (80.0-94.0); MEAN PLATELET VOLUME 9.4 fL (7.4-11.4); MONOCYTES # (AUTO) 0.7 10^3/uL (0.0-1.0); MONOCYTES % (AUTO) 8.8 %; NEUTROPHILS # (AUTO) 5.6 10^3/uL (1.5-6.6); NEUTROPHILS % (AUTO) 74.2 %; PLT - PLATELET COUNT 275 10^3/uL (130-450); RED BLOOD COUNT 3.39 10^6/uL (4.70-6.10); RED CELL DISTRIBUTION WIDTH 15.7 % (12.0-15.0); WHITE BLOOD COUNT 7.6 x10^3/uL (4.8-10.8)
== END 2023-07-09 09:01 | disposition home or self-care (01) ==
LOC: LAB 09:00
PROVIDERS: ATTEND Nurse Practitioner
DX: I10 Essential (primary) hypertension (principal)
CPT/HCPCS: 36415; 85025

== ENCOUNTER 2023-07-18 12:46 | Outpatient (CLI) | payer MEDICARE ==
[2023-07-18 13:00] LABS: HCT - HEMATOCRIT 36.1 % (42.0-52.0); HGB - HEMOGLOBIN 10.6 g/dL (14.0-18.0); MEAN CORPUSCULAR HEMOGLOBIN 27.6 pg (27.0-31.0); MEAN CORPUSCULAR HGB CONC 29.4 g/dL (32.0-36.0); MEAN PLATELET VOLUME 9.8 fL (7.4-11.4); RED BLOOD COUNT 3.84 10^6/uL (4.70-6.10); RED CELL DISTRIBUTION WIDTH 14.7 % (12.0-15.0)
[2023-07-18 13:32] LABS: FERRITIN 21.5 ng/mL (23.9-336.2)
== END 2023-07-18 12:47 | disposition home or self-care (01) ==
LOC: LAB 12:46
PROVIDERS: ATTEND Nurse Practitioner
DX: D64.9 Anemia, unspecified (principal); N40.0 Benign prostatic hyperplasia without lower urinary tract symptoms; R97.20 Elevated prostate specific antigen [PSA]
CPT/HCPCS: 36415; 82728; 83540; 84153; 84466; 85027

== ENCOUNTER 2023-08-06 07:27 | Day surgery (SDC) | payer MEDICARE ==
[2023-08-06] MEDS: LACTATED RINGERS 1,000 ML IV ONE ×2 (07:31→09:45)
--- NOTE | 2023-08-06 09:08 | ANESTHESIA ---
Pre-Anesthesia VS, & Labs - Diagnosis DUODENAL ULCER - Procedure FOLLOW UP SURVEILLANCE Vital Signs: Temp Pulse Resp BP Pulse Ox O2 Flow Rate 36 C L 78 16 145/85 H 98 08/06/23 07:35 08/06/23 07:35 08/06/23 07:35 08/06/23 07:35 08/06/23 07:35 Height: 6 ft Weight (kg): 131 kg Body Mass Index: 39.2 BMI Classification: Obese - NPO Last Fluid Intake: 629 Last Food Intake: >8HR Home Medications and Allergies Home Medications: Ambulatory Orders Atorvastatin [Lipitor] 20 mg PO QPM 07/31/23 Ondansetron Odt [Zofran Odt] 4 mg PO Q6H PRN 07/31/23 Spironolactone [Aldactone] 25 mg PO DAILY 07/31/23 Active Medications Metoprolol Succinate (Metoprolol Succinate 25 Mg Tablet) 25 mg PO DAILY MAY Amitriptyline HCl 25 - 50 mg PO DAILY PM 01/11/18 Azelastine HCl [Astepro] 4 spray NS QPM 01/11/18 Duloxetine HCl [Cymbalta] 60 mg PO DAILY 01/11/18 Oxycodone HCl 10 mg PO Q4HR PRN 01/11/18 Pregabalin [Lyrica] 150 mg PO BID 01/11/18 Tamsulosin [Flomax] 0.4 mg PO DAILY PM 01/11/18 Albuterol Sulfate [Proair Hfa Inhaler] 1 - 2 puffs INH Q4H PRN 10/22/19 Budesonide/Formoterol Fumarate [Symbicort 160-4.5 Mcg Inhaler] 1 puffs IH DAILY 10/22/19 Losartan [Cozaar] 50 mg PO DAILY 10/22/19 traZODone [Desyrel] 100 mg PO HS 06/17/23 Atorvastatin [Lipitor] 20 mg PO QPM 07/31/23 Ondansetron Odt [Zofran Odt] 4 mg PO Q6H PRN 07/31/23 Spironolactone [Aldactone] 25 mg PO DAILY 07/31/23 Allergies/Adverse Reactions: Allergies Allergy/AdvReac Type Severity Reaction Status Date / Time cefaclor [From [facility]] Allergy Rash Verified 06/24/23 05:38 Anes History & Medical History - Anesthetic History Anesthesia Complications: reports: No previous complications Family history of Anesthesia Complications: Denies - Medical History Cardiovascular: reports: Hypertension (DIDN'T TAKE METOPROLOL; WILL GIVE; DENIES CARDIAC CHEST PAIN; HAS HAD SOME RELATED TO ULCER), High cholesterol Pulmonary: reports: Asthma, Shortness of breath, Sleep apnea, CPAP use Gastrointestinal: reports: GI bleed, Ulcers Urinary: reports: Benign prostate hypertrophy Neuro: reports: None Musculoskeletal: reports: Chronic back pain Endocrine/Autoimmune: reports: None Skin: reports: None Smoking Status: Never smoker Psychosocial: reports: No issues indicated History of Cancer?: No - Surgical History General: reports: Colonoscopy, EGD, Other Orthopedic: reports: Rotator cuff repair, Spine surgery, Other Results - EKG Results EKG Comparison: Reviewed EKG Exam General: Alert Dental: WNL Mouth Openin Fingerbreadth Neck Mobility: Normal Mallampati classification: II Thyromental Distance: 4-6 cm Respiratory: Lungs clear (NO WHEEZING) Cardiovascular: Regular rate Plan Anesthesia Type: Total IV Consent for Procedure(s) Verified and Reviewed: Yes Code Status: Attempt Resuscitation ASA classification: 3-Severe systemic disease Is this case an emergency?: No
[2023-08-06] MEDS ORDERED: PROPOFOL 200 MG/20 ML VIAL IVP ONE (09:38)
[2023-08-06] MEDS ORDERED: LIDOCAINE-MPF 2% 5 ML VIAL ONE (09:38)
[2023-08-06] MEDS ORDERED: METOPROLOL SUCCINATE 25 MG TABLET PO SCH (10:00)
[2023-08-06 10:18] VITALS: BP 125/88; O2SAT 96
--- NOTE | 2023-08-06 14:11 | ANESTHESIA POST OP EVALUATION ---
Anesthesia Post Eval - Post Anesthesia Eval Vitals: Last Vital Signs Temp 36.5 C 08/06/23 09:45 Pulse 94 08/06/23 10:00 Resp 16 08/06/23 10:00 BP 125/88 H 08/06/23 10:00 Pulse Ox 96 08/06/23 10:00 O2 Flow Rate CV Function Including HR & BP: Stable Pain Control: Satisfactory Nausea & Vomiting: Negative Mental Status: Baseline Respiratory Status: Airway Patent Hydration Status: Satisfactory Anesthesia Complications: None
== END 2023-08-06 07:28 | disposition home or self-care (01) ==
LOC: SDS 07:27
PROVIDERS: ATTEND Surgery
DX: K26.0 Acute duodenal ulcer with hemorrhage (principal); K21.00 Gastro-esophageal reflux disease with esophagitis, without bleeding; E66.9 Obesity, unspecified; Z68.39 Body mass index [BMI] 39.0-39.9, adult; G47.33 Obstructive sleep apnea (adult) (pediatric); J45.909 Unspecified asthma, uncomplicated; I10 Essential (primary) hypertension; E78.5 Hyperlipidemia, unspecified
CPT/HCPCS: 43235; J7120

== ENCOUNTER 2023-08-18 12:09 | Outpatient (CLI) | payer MEDICARE ==
--- NOTE | 2023-08-18 21:47 | XRAY Report ---
PROCEDURE: Foot 3+V RT INDICATIONS: FOOT PAIN,RIGHT TECHNIQUE: 3 views of the foot were acquired. COMPARISON: None. FINDINGS: Bones: No fractures or dislocations. No suspicious bony lesions. Mild degenerative changes are pre sent at the midfoot. There is a small calcaneal spur. Soft tissues: No tibiotalar joint effusion. Achilles tendon appears normal. IMPRESSION: No acute bony abnormality. Mild degenerative change. Reviewed by: Mariah Cali MD on 08/18/2023 9:46 PM PDT Approved by: Mariah Cali MD on 08/18/2023 9:46 PM PDT Station ID: [id number]
== END 2023-08-18 12:10 | disposition home or self-care (01) ==
LOC: DI 12:09
PROVIDERS: ATTEND Physician Assistant Surgical
DX: M19.071 Primary osteoarthritis, right ankle and foot (principal)

== ENCOUNTER 2023-09-10 09:55 | Day surgery (SDC) | payer MEDICARE ==
[~2023-09-10 09:55] MED LIST changes: +CIPROFLOXACIN 400 MG/200 ML 400 MG/200 ML BAG IV ONE; -CLINDAMYCIN IV 900 MG/50 ML IV ONE
[2023-09-10] MEDS: LACTATED RINGERS 1,000 ML IV ONE ×2 (10:33→12:05)
[2023-09-10] MEDS: LIDOCAINE 2% URO-JET 5 ML SYRINGE UR ONE (10:56)
[2023-09-10] MEDS ORDERED: LIDOCAINE-MPF 1% 30 ML VIAL ONE (11:19)
--- NOTE | 2023-09-10 11:43 | ANESTHESIA ---
Pre-Anesthesia VS, & Labs - Diagnosis Elevated PSA - Procedure TRUS prostate biopsy Vital Signs: Temp Pulse Resp BP Pulse Ox O2 Flow Rate 36.9 C 85 24 146/90 H 97 09/10/23 10:07 09/10/23 10:07 09/10/23 10:07 09/10/23 10:07 09/10/23 10:07 Height: 6 ft Weight (kg): 127 kg Body Mass Index: 38.0 BMI Classification: Obese - NPO >8 hours Home Medications and Allergies Home Medications: Ambulatory Orders Albuterol Sulfate [Proair Digihaler] 90 mcg IH Q4HR PRN 09/03/23 Tadalafil [Cialis] 20 mg PO DAILY 09/03/23 Amitriptyline HCl 25 - 50 mg PO DAILY PM 01/11/18 Azelastine HCl [Astepro] 4 spray NS QPM 01/11/18 Duloxetine HCl [Cymbalta] 60 mg PO DAILY 01/11/18 Oxycodone HCl 10 mg PO Q4HR PRN 01/11/18 Pregabalin [Lyrica] 150 mg PO BID 01/11/18 Tamsulosin [Flomax] 0.4 mg PO DAILY PM 01/11/18 Budesonide/Formoterol Fumarate [Symbicort 160-4.5 Mcg Inhaler] 1 puffs IH DAILY 10/22/19 Losartan [Cozaar] 50 mg PO DAILY 10/22/19 traZODone [Desyrel] 100 mg PO HS 06/17/23 Atorvastatin [Lipitor] 20 mg PO QPM 07/31/23 Ondansetron Odt [Zofran Odt] 4 mg PO Q6H PRN 07/31/23 Spironolactone [Aldactone] 25 mg PO DAILY 07/31/23 Albuterol Sulfate [Proair Digihaler] 90 mcg IH Q4HR PRN 09/03/23 Tadalafil [Cialis] 20 mg PO DAILY 09/03/23 Allergies/Adverse Reactions: Allergies Allergy/AdvReac Type Severity Reaction Status Date / Time cefaclor [From Ceclor] Allergy Rash Verified 09/07/23 14:47 cephalexin [From Keflex] Allergy Unknown Verified 09/10/23 10:21 Sulfa (Sulfonamide Allergy Unknown Verified 05/20/24 10:21 Antibiotics) amlodipine [From [facility]] AdvReac Edema Verified 09/10/23 10:20 NSAIDS (Non-Steroidal AdvReac Unknown Verified 09/10/23 10:20 Anti-Inflamma Anes History & Medical History - Anesthetic History Anesthesia Complications: reports: No previous complications - Medical History Cardiovascular: reports: Hypertension, High cholesterol Pulmonary: reports: Asthma, Shortness of breath, Sleep apnea, CPAP use Gastrointestinal: reports: GI bleed, Ulcers Urinary: reports: Benign prostate hypertrophy Neuro: reports: None Musculoskeletal: reports: Chronic back pain Endocrine/Autoimmune: reports: None Skin: reports: None Smoking Status: Never smoker Psychosocial: reports: No issues indicated History of Cancer?: No - Surgical History General: reports: Colonoscopy, EGD, Other Orthopedic: reports: Rotator cuff repair, Spine surgery, Other Exam General: Alert, Oriented x3, Cooperative, No acute distress Dental: WNL Mouth Openin Fingerbreadth Neck Mobility: Normal Mallampati classification: II Thyromental Distance: 4-6 cm Mental/Cognitive Status: Alert/Oriented X3, Normal for patient Plan Anesthesia Type: General, Total IV Consent for Procedure(s) Verified and Reviewed: Yes Code Status: Attempt Resuscitation ASA classification: 3-Severe systemic disease Is this case an emergency?: No
[2023-09-10] MEDS ORDERED: fentaNYL 100 MCG/2 ML VIAL ONE (11:48)
[2023-09-10] MEDS ORDERED: PROPOFOL 200 MG/20 ML VIAL IVP ONE (11:48)
[2023-09-10] MEDS ORDERED: MIDAZOLAM 2 MG/2 ML VIAL ONE (11:48)
--- NOTE | 2023-09-10 12:05 | Discharge Plan ---
Discharge Plan Problem Reviewed?: Yes Disposition: Home, Self Care Condition: Good Activity Restrictions: No Restrictions Shower Restrictions: No Driving Restrictions: No Instruction Topics: Biopsy Ultrasound Transrectal Additional Instructions or Follow Up instructions: You have a follow-up appointment with Dr. Rose on September 18 at 1:15 PM. Please arrive 15 minutes early No Smoking: If you smoke, Please STOP! Call for help. Follow-up with: Erasto Rose MD [Provider Admit Priv/Credential] -
--- NOTE | 2023-09-10 12:07 | OPERATIVE REPORT ---
Operative Report - General Procedure Date: 09/10/23 Planned Procedure: Transrectal ultrasound-guided prostate biopsy Pre-Op Diagnosis: elevated psa Procedure Performed: Transrectal ultrasound-guided prostate biopsy Post Op Diagnosis: elevated psa - Procedure Note Primary Surgeon: Milton Anesthesia Provider: ARIELA Arellano Anesthesia Technique: Moderate sedation Pathology: routine prostate biopsy samples Estimated Blood Loss (mL): 0 Findings: 21.7cc prostate left apex hypoechoic area Complications: none - Other Other Information/Narrative: After informed sent was obtained the patient was brought to the OR and laid in the left lateral decubitus position with the right side up. He was anesthetized per anesthesia protocols. A formal timeout was performed reconfirming the patient and procedure. A transrectal ultrasound was placed per rectum and his prostate was visualized. It was measured at 21.7 cc. He was noted to have a hypoechoic lesion to the left apex. Using 18-gauge prostate biopsy needle we selected samples from the left and right prostate, from the medial and lateral aspects of the apex, mid and base of the prostate for a total of 12 cores. The probe was removed and no bleeding was noted. This concluded the procedure. Patient was brought to PACU without further incident. He will follow-up in a week's time for pathology discussion
[2023-09-10 12:34] VITALS: BP 132/83; O2SAT 93
--- NOTE | 2023-09-10 15:39 | ANESTHESIA POST OP EVALUATION ---
Anesthesia Post Eval - Post Anesthesia Eval Vitals: Last Vital Signs Temp 36.9 C 09/10/23 12:05 Pulse 83 09/10/23 12:27 Resp 16 09/10/23 12:27 BP 132/83 H 09/10/23 12:27 Pulse Ox 93 09/10/23 12:27 O2 Flow Rate CV Function Including HR & BP: Stable Pain Control: Satisfactory Nausea & Vomiting: Negative Mental Status: Baseline Respiratory Status: Airway Patent Hydration Status: Satisfactory Anesthesia Complications: None
== END 2023-09-10 09:56 | disposition home or self-care (01) ==
LOC: SDS 09:55
PROVIDERS: ATTEND Urology
PROC: 0VB07ZX Excision of Prostate, Via Natural or Artificial Opening, Diagnostic (ICD-10-PCS; principal; 2023-09-10 11:30)
DX: C61 Malignant neoplasm of prostate (principal); N40.0 Benign prostatic hyperplasia without lower urinary tract symptoms; E66.9 Obesity, unspecified; I10 Essential (primary) hypertension; J45.909 Unspecified asthma, uncomplicated; G47.30 Sleep apnea, unspecified; Z68.38 Body mass index [BMI] 38.0-38.9, adult
CPT/HCPCS: 55700; 76942; J7120

== ENCOUNTER 2023-10-18 11:40 | Outpatient (CLI) | payer MEDICARE ==
[2023-10-18 11:52] LABS: HCT - HEMATOCRIT 44.6 % (42.0-52.0); HGB - HEMOGLOBIN 14.1 g/dL (14.0-18.0); MEAN CORPUSCULAR HGB CONC 31.6 g/dL (32.0-36.0); MEAN CORPUSCULAR VOLUME 85.3 fL (80.0-94.0); RED BLOOD COUNT 5.23 10^6/uL (4.70-6.10); WHITE BLOOD COUNT 7.6 x10^3/uL (4.8-10.8)
[2023-10-18 12:27] LABS: FERRITIN 22.2 ng/mL (23.9-336.2)
[2023-10-18 12:51] LABS: ESTIMATED AVERAGE GLUCOSE 120 mg/dL (70-100); HEMOGLOBIN A1c% 5.8 % (4.27-6.07)
== END 2023-10-18 11:41 | disposition home or self-care (01) ==
LOC: LAB 11:40
PROVIDERS: ATTEND Nurse Practitioner
DX: D64.9 Anemia, unspecified (principal); R73.03 Prediabetes
CPT/HCPCS: 36415; 82728; 83036; 83540; 84466; 85027

== ENCOUNTER 2023-10-23 08:34 | Outpatient (CLI) | payer MEDICARE ==
--- NOTE | 2023-10-23 08:56 | Sleep Patient Instructions ---
Sleep Center Visit Summary - Patient Visit Information Reason for Visit: Annual follow-up - Patient Instructions Additional Instructions: You will continue with CPAP therapy with pressure changed to 11 cmH2O. A supply prescription will be updated with your DME. We encourage you to continue to try to lose weight. Please follow up with the sleep care office in 1 year. - Clinic Information Contact: [facility] [address] [place] [address] [email or web address] T: [phone]
--- NOTE | 2023-10-23 09:03 | SLEEP CARE CONSULTATION ---
Information from patient questionnaire entered by Ayesha Lawson. I have reviewed and concur with the information entered by Ayesha Lawson. This document represents the service I personally performed and the decisions made by me, Guerita Meeks ARNP. History of Present Illness Service Date and Time: 10/23/2023 0834 Previous diagnosis: Severe, Obstructive Sleep Apnea-Hypopnea Syndrome AHI: 38.9 (in 2018) Reason for follow up: annual (LAST SEEN 09/2022) Equipment type: CPAP (TROTTER Dreamstation 2, s/u 08/27/2017, NEED SD) Equipment obtained from: [employer] (getting supplies as needed) Mask style: Nasal Backup mask available: Yes Last cushion change: 1 week ago Prior sleep studies: Yes Year and Where: 2017 - [facility] Type of Sleep Study: Polysomnography HPI additional information: LISA VEGAS was diagnosed to have severe, AHI 38.9, obstructive sleep apnea- hypopnea syndrome and returned today for CPAP therapy annual follow-up. Sleep Study - Results Type of Sleep Study: Polysomnography Prior sleep studies: Yes Year and Where: 2018 - [facility] CPAP Compliance Data - Data Reviewed with Patient Average duration of nightly device use: 7 HRS 47 MINS 39 SECS Compliance rate %: 94.4 (10/22/22-10/21/23; 171/180 days used) Current pressure setting (cmH2O): 8 Average residual AHI: 6.7 Central apnea: 0.8 Obstructive apnea: 1.1 Hypopnea: 4.8 Average large leak: 5 mins 13 secs Subjective Missed days of use due to: reports: illness (in hospital for bleeding ulcer 10 days) Patient concerns: denies: aerophagia, mask discomfort, air blowing in eyes, mask leak noise, condensation in mask/hose, nasal congestion, dry mouth, nose, throat, epistaxis Observed to snore while using device: No Current pressure setting perceived as: comfortable On therapy, patient: reports: sleeping better, awakening more refreshed, being more awake and alert during the day, more rested overall. denies: drowsiness while driving Initial [place] Sleepiness Scale score: 10 (in 2018) Current [place] Sleepiness Scale score: 4 Allergies and Home Medications Known drug allergies: Yes (as listed) Drug allergies reviewed: Yes Home medication list reviewed: Yes (no changes) Allergy and home medication list: Allergies cefaclor [From Ceclor] Allergy (Verified 10/22/23 08:57) Rash cephalexin [From Keflex] Allergy (Verified 10/22/23 08:57) Unknown Sulfa (Sulfonamide Antibiotics) Allergy (Verified 10/22/23 08:57) Unknown amlodipine [From Norvasc] Adverse Reaction (Verified 10/22/23 08:57) Edema NSAIDS (Non-Steroidal Anti-Inflamma Adverse Reaction (Verified 10/22/23 08:57) Unknown hx bleeding ulcers Review of Systems Review of systems same as previous: No (bleeding ulcer, hospitalized) Physical Exam Vital signs obtained and entered by: AYESHA Barrera MA Blood Pressure: 148/83 (LEFT ARM) Cuff size: long Heart Rate: 84 O2 Saturation: 96 Height: 6 ft Weight: 286 lb 6.4 oz Weight change since last visit: 13.6 lb loss Body Mass Index: 38.8 BMI Classification: Obese Impression and Plan 1. Obstructive Sleep Apnea-Hypopnea Syndrome, severe, with good treatment compliance and fair apnea control with elevated residual AHI. On CPAP therapy, the patient has better sleep quality and is more rested overall. His Dreamstation 2 is the replacement for the recall and came set up at 8 cmH2O. This pressure is not adequate and he used to be set up at different pressure, 11 cmH2O. The patients pressure will be changed to autoCPAP 11 cmH20 for elevation of residual AHI. Patient advised to contact me if pressure change is uncomfortable so that it can be adjusted. Goals for apnea control discussed. Patient's apnea severity and rationale for treatment to reduce apnea, improve sleep quality and reduce cardiovascular and cerebrovascular events was reviewed. I also reviewed the benefit of consistent device use of CPAP for hypertension. 2. Obesity, unspecified. Currently patients BMI is 38.8. He has lost weight. Obesity increases the risk of apnea, CPAP pressure requirements and overall health risks especially cardiovascular and diabetes. Thus patient is advised to continue to try to lose weight. * Change CPAP pressure back to 11 cmH2O * Update supply prescription * Notify me if snoring with mask or feeling that the pressure is too much or too little * Attempt to lose weight * Call this office if any problems using CPAP * Return for follow up in 12 months, or sooner if concerns arise Adjust device pressure to (cmH2O): 11 Counseling Topics: Spare mask, Weight loss health impact Prescriptions: Device supplies Follow up with Sleep Care in: 1 year Visit Type: In Office Time Spent with Patient (minutes): 21 Provider Statement: I spent 100% of the Face to Face Visit with the patient with greater than 50% spent counseling the patient and coordination of care.
[2023-10-23 09:10] VITALS: BP 148/83; O2SAT 96
== END 2023-10-23 08:35 | disposition home or self-care (01) ==
LOC: SC 08:34
PROVIDERS: ATTEND Nurse Practitioner Family
DX: G47.33 Obstructive sleep apnea (adult) (pediatric) (principal); E66.9 Obesity, unspecified; Z68.38 Body mass index [BMI] 38.0-38.9, adult
CPT/HCPCS: 99213; G0463; 99212

== ENCOUNTER 2023-12-17 08:55 | Day surgery (SDC) | payer MEDICARE ==
[2023-12-17] MEDS: LACTATED RINGERS 1,000 ML IV ONE (09:56)
[2023-12-17] MEDS ORDERED: LIDOCAINE-MPF 2% 5 ML VIAL ONE (10:18)
[2023-12-17] MEDS ORDERED: PROPOFOL 500 MG/50 ML 500 MG/50 ML VIAL ONE (10:18)
[2023-12-17] MEDS ORDERED: PHENYLEPHRINE HCL 0.5 MG/5 ML AMPULE ONE (10:40)
[2023-12-17] MEDS: LACTATED RINGERS 500 ML IV ONE (10:59)
[2023-12-17 11:11] VITALS: O2SAT 95
[2023-12-17 11:31] VITALS: BP 116/81
--- NOTE | 2023-12-17 14:56 | ANESTHESIA POST OP EVALUATION ---
Anesthesia Post Eval - Post Anesthesia Eval Vitals: Last Vital Signs Temp 36.3 C L 12/17/23 10:59 Pulse 78 12/17/23 11:22 Resp 18 12/17/23 11:22 BP 116/81 H 12/17/23 11:22 Pulse Ox 95 12/17/23 11:22 O2 Flow Rate CV Function Including HR & BP: Stable Pain Control: Satisfactory Nausea & Vomiting: Negative Mental Status: Baseline Respiratory Status: Airway Patent Hydration Status: Satisfactory Anesthesia Complications: None
== END 2023-12-17 08:56 | disposition home or self-care (01) ==
LOC: SDS 08:55
PROVIDERS: ATTEND Surgery
PROC: 0DBL8ZX Excision of Transverse Colon, Via Natural or Artificial Opening Endoscopic, Diagnostic (ICD-10-PCS; principal; 2023-12-17 10:15)
DX: Z12.11 Encounter for screening for malignant neoplasm of colon (principal); D12.3 Benign neoplasm of transverse colon; G47.33 Obstructive sleep apnea (adult) (pediatric); E66.9 Obesity, unspecified; J45.909 Unspecified asthma, uncomplicated; I10 Essential (primary) hypertension; Z68.38 Body mass index [BMI] 38.0-38.9, adult
CPT/HCPCS: 45385; J2372; J7120